=== PATIENT | female | born 1950 | race African-American/Black ===

== ENCOUNTER 2019-01-04 12:38 | Inpatient (IN) | payer MEDICARE ==
[~2019-01-04] VITALS: Ht 162.6 cm; Wt 93.0 kg
[2019-01-04] MEDS ORDERED: GLUCOPHAGE1000 MG ORAL (12:45)
[2019-01-04] MEDS ORDERED: GLIPIZIDE10 MG PO (12:45)
[2019-01-04] MEDS ORDERED: HYDROCHLOROTH12.5 M2 ORAL (12:45)
--- NOTE | 2019-01-04 13:06 | NUR ---
ED Nurse Note: pt brought in by [facility] c/o weakness and dizziness, per EMS report, pt has been noncompliant with meds, and has been under a lot of strees and hasn't been eating. HU=472 on field. pt AA&ox4, gcs=15, skin warm and dry, resp even and unlabored on RA, -n/v/d, will cont monitor.
--- NOTE | 2019-01-04 13:41 | Emergency Room Report ---
History of Present Illness General Chief Complaint: Generalized Weakness Source: Patient, EMS Present Illness HPI Patient presents with weakness. She also has elevated blood sugar. She is brought in by EMS. She stopped taking diabetic medications 1 month ago. No fevers, chills, chest pain, palpitations, nausea, vomiting, diarrhea, dysuria , abdominal pain, shortness of breath, depression, visual changes, headache. Allergies: Coded Allergies: No Known Allergies (Unverified , 01/04/19) Patient History Past Medical History: see triage record Social History: Denies: smoking Social History Narrative with daughter -apparently homeless Now: No : 0 Para: 0 Reviewed Nursing Documentation: PMH: Agreed; PSxH: Agreed Nursing Documentation-PMH Past Medical History: No History, Except For Hx Hypertension: Yes - HTN Hx Diabetes: Yes - DM Review of Systems All Other Systems: negative except mentioned in HPI Physical Exam Vital Signs Date Time Temp Pulse Resp B/P (MAP) Pulse Ox O2 Delivery O2 Flow Rate FiO2 01/04/19 12:34 98.2 98 18 131/79 96 Room Air Sp02 EP Interpretation: reviewed, normal General Appearance: well appearing, no apparent distress, GCS 15 Head: normocephalic Eyes: bilateral eye normal inspection, bilateral eye PERRL, bilateral eye EOMI ENT: moist mucus membranes Neck: supple Respiratory: lungs clear, normal breath sounds Cardiovascular #1: regular rate, rhythm Cardiovascular #2: 2+ radial (R) Gastrointestinal: normal inspection, normal bowel sounds, non tender, no mass, non-distended Musculoskeletal: back normal, normal range of motion Neurologic: alert, oriented x3, grossly normal Psychiatric: depressed affect Skin: normal inspection, warm/dry Medical Decision Making Diagnostic Impression: Primary Impression: NSTEMI (non-ST elevated myocardial infarction) Additional Impressions: Hyperglycemia Cardiomegaly Atelectasis Noncompliance ER Course Patient presents with weakness. Her blood sugars high. Differential includes acute myocardial infarction, diabetic ketoacidosis, occult infection, other electrolyte imbalance amongst others. Evaluation will be with EKG, chest x-ray and labs. She has a nonfocal neurologic exam and CT is not indicated this time. She'll receive IV hydration and repeat Accu-Cheks. The patient's is placed on a monitor worker. EKG sinus rhythm 96 left atrial enlargement nonspecific ST-T wave changes Lab called with + troponin. Aspirin and metoprolol ordered. After bolus, glucose 498. Insulin bolus. Seen by Dr. Vallecillo. Accu-Chek 392. Patient admitted to stepdown unit Dr. Wisdom. Laboratory Tests Test 01/04/19 14:20 White Blood Count 7.3 K/UL (4.8-10.8) Red Blood Count 5.51 M/UL (4.20-5.40) H Hemoglobin 13.2 G/DL (12.0-16.0) Hematocrit 44.0 % (37.0-47.0) Mean Corpuscular Volume 80 FL (80-99) Mean Corpuscular Hemoglobin 24.0 PG (27.0-31.0) L Mean Corpuscular Hemoglobin Concent 30.1 G/DL (32.0-36.0) L Red Cell Distribution Width 15.7 % (11.6-14.8) H Platelet Count 230 K/UL (150-450) Mean Platelet Volume 9.3 FL (6.5-10.1) Neutrophils (%) (Auto) % (45.0-75.0) Lymphocytes (%) (Auto) % (20.0-45.0) Monocytes (%) (Auto) % (1.0-10.0) Eosinophils (%) (Auto) % (0.0-3.0) Basophils (%) (Auto) % (0.0-2.0) Differential Total Cells Counted 100 Neutrophils % (Manual) 88 % (45-75) H Lymphocytes % (Manual) 7 % (20-45) L Monocytes % (Manual) 2 % (1-10) Eosinophils % (Manual) 0 % (0-3) Basophils % (Manual) 0 % (0-2) Band Neutrophils 3 % (0-8) Platelet Estimate Adequate Platelet Morphology Normal Red Blood Cell Morphology Normal Prothrombin Time 12.0 SEC (9.30-11.50) H Prothrombin Time INR 1.1 (0.9-1.1) PTT 26 SEC (23-33) Urine Color Pale yellow Urine Appearance Clear Urine pH 6.5 (4.5-8.0) Urine Specific [place] 1.010 (1.005-1.035) Urine Protein 3+ (NEGATIVE) H Urine Glucose (UA) 4+ (NEGATIVE) H Urine Ketones 2+ (NEGATIVE) H Urine Blood 2+ (NEGATIVE) H Urine Nitrite Negative (NEGATIVE) Urine Bilirubin Negative (NEGATIVE) Urine Urobilinogen 1 MG/DL (0.0-1.0) H Urine Leukocyte Esterase Negative (NEGATIVE) Urine RBC 2-4 /HPF (0 - 2) H Urine WBC 0-2 /HPF (0 - 2) Urine Squamous Epithelial Cells Occasional /LPF Urine Bacteria Few /HPF (NONE) Sodium Level 130 MMOL/L (136-145) L Potassium Level 4.4 MMOL/L (3.5-5.1) Chloride Level 93 MMOL/L (98-107) L Carbon Dioxide Level 24 MMOL/L (21-32) Anion Gap 13 mmol/L (5-15) Blood Urea Nitrogen 20 mg/dL (7-18) H Creatinine 1.7 MG/DL (0.55-1.30) H Estimate Glomerular Filtration Rate 30.1 mL/min (>60) Glucose Level 536 MG/DL (74-106) *H Calcium Level 9.5 MG/DL (8.5-10.1) Total Bilirubin 0.6 MG/DL (0.2-1.0) Aspartate Amino Transferase (AST) 38 U/L (15-37) H Alanine Aminotransferase (ALT) 29 U/L (12-78) Alkaline Phosphatase 140 U/L (46-116) H Total Creatine Kinase 335 U/L (26-308) H Troponin I 2.146 ng/mL (0.000-0.056) Pro-B-Type Natriuretic Peptide 6848 pg/mL (0-125) H Total Protein 8.9 G/DL (6.4-8.2) H Albumin 3.4 G/DL (3.4-5.0) Globulin 5.5 g/dL Albumin/Globulin Ratio 0.6 (1.0-2.7) L EKG Diagnostic Results Rate: normal Rhythm: NSR ST Segments: no acute changes Rhythm Strip Diag. Results EP Interpretation: yes Rhythm: NSR, no PVC's, no ectopy Chest X-Ray Diagnostic Results Chest X-Ray Diagnostic Results : Chest X-Ray Ordered: Yes # of Views/Limited/Complete: 1 View Indication: Other EP Interpretation: Yes Interpretation: no effusion, no pneumothorax, other - atelectasis and cardiomegally Impression: Other Electronically Signed by: Electronically signed by Hunter Osborne MD Last Vital Signs Date Time Temp Pulse Resp B/P (MAP) Pulse Ox O2 Delivery O2 Flow Rate FiO2 01/05/19 00:00 Nasal Cannula 2.0 01/05/19 00:00 97.4 78 20 112/80 (91) 97 Status: improved Disposition: ADMITTED INPATIENT Condition: Serious Hunter Osborne MD Jan 04, 2019 13:41
[2019-01-04 13:50] VITALS: BP 128/86
--- NOTE | 2019-01-04 14:30 | NUR ---
ED Nurse Note: ERMD verified before food. given.
[2019-01-04 14:36] LABS: APPEARANCE,URINE CLEAR; BILIRUBIN, URINE NEGATIVE (NEGATIVE); COLOR,URINE PALE YELLOW; GLUCOSE, URINE (UA) 4+ (NEGATIVE); HEMOGLOBIN 13.2 G/DL (12.0-16.0); KETONES,URINE 2+ (NEGATIVE); LEUKOCYTE ESTERASE ,URINE NEGATIVE (NEGATIVE); MEAN CORPUSCULAR VOLUME 80 FL (80-99); NITRITE,URINE NEGATIVE (NEGATIVE); PH,URINE 6.5 (4.5-8.0); PLATELET COUNT 230 K/UL (150-450); PROTEIN,URINE 3+ (NEGATIVE); RED BLOOD COUNT 5.51 M/UL (4.20-5.40); RED CELL DISTRIBUTION WIDTH 15.7 % (11.6-14.8); UROBILINOGEN,URINE 1 MG/DL (0.0-1.0); WHITE BLOOD COUNT 7.3 K/UL (4.8-10.8)
--- NOTE | 2019-01-04 14:44 | Diagnostic Imaging Report ---
Indication: Dyspnea Comparison: None A single view chest radiograph was obtained. Findings: The heart is enlarged. There is a mild the platelike atelectasis in the left midlung. Bones are osteopenic. IMPRESSION: Cardiomegaly.
[2019-01-04 14:48] LABS: INR 1.1 (0.9-1.1)
[2019-01-04 14:50] VITALS: BP 136/86
[2019-01-04 14:57] LABS: ALANINE AMINOTRANSFERASE 29 U/L (12-78); ALBUMIN 3.4 G/DL (3.4-5.0); ALBUMIN/GLOBULIN RATIO 0.6 (1.0-2.7); ALKALINE PHOSPHATASE 140 U/L (46-116); ANION GAP 13 mmol/L (5-15); ASPARTATE AMINO TRANSFERASE 38 U/L (15-37); BILIRUBIN,TOTAL 0.6 MG/DL (0.2-1.0); BLOOD UREA NITROGEN 20 mg/dL (7-18); CALCIUM 9.5 MG/DL (8.5-10.1); CARBON DIOXIDE 24 MMOL/L (21-32); CHLORIDE 93 MMOL/L (98-107); CREATINE KINASE 335 U/L (26-308); CREATININE 1.7 MG/DL (0.55-1.30); POTASSIUM 4.4 MMOL/L (3.5-5.1); SODIUM 130 MMOL/L (136-145)
[2019-01-04] MEDS ORDERED: Metoprolol 5mg/5ml Inj IVP STA (14:58)
--- NOTE | 2019-01-04 15:00 | NUR ---
ED Nurse Note: pt provided w/ extra blanket for comfort, pt vss, ambulatory w/steady gait, resp even and unlabored on RA, NSR on nuclear monitoring technician, will cont monitor.
[2019-01-04 15:50] VITALS: BP 132/80
[2019-01-04] MEDS ORDERED: Insulin Human Regular 100units/ml 3ml IV ONE (16:15)
--- NOTE | 2019-01-04 16:16 | Cardiac Electrophysiology PN ---
Subjective Subjective [id number] Objective Last 24 Hour Vital Signs Date Time Temp Pulse Resp B/P (MAP) Pulse Ox O2 Delivery O2 Flow Rate FiO2 01/04/19 16:14 100 138/86 01/04/19 13:50 98 18 Room Air 01/04/19 13:50 98.2 99 18 128/86 96 Room Air 01/04/19 12:34 98.2 98 18 131/79 96 Room Air Laboratory Tests Test 01/04/19 14:20 White Blood Count 7.3 K/UL (4.8-10.8) Red Blood Count 5.51 M/UL (4.20-5.40) H Hemoglobin 13.2 G/DL (12.0-16.0) Hematocrit 44.0 % (37.0-47.0) Mean Corpuscular Volume 80 FL (80-99) Mean Corpuscular Hemoglobin 24.0 PG (27.0-31.0) L Mean Corpuscular Hemoglobin Concent 30.1 G/DL (32.0-36.0) L Red Cell Distribution Width 15.7 % (11.6-14.8) H Platelet Count 230 K/UL (150-450) Mean Platelet Volume 9.3 FL (6.5-10.1) Neutrophils (%) (Auto) % (45.0-75.0) Lymphocytes (%) (Auto) % (20.0-45.0) Monocytes (%) (Auto) % (1.0-10.0) Eosinophils (%) (Auto) % (0.0-3.0) Basophils (%) (Auto) % (0.0-2.0) Differential Total Cells Counted 100 Neutrophils % (Manual) 88 % (45-75) H Lymphocytes % (Manual) 7 % (20-45) L Monocytes % (Manual) 2 % (1-10) Eosinophils % (Manual) 0 % (0-3) Basophils % (Manual) 0 % (0-2) Band Neutrophils 3 % (0-8) Platelet Estimate Adequate Platelet Morphology Normal Red Blood Cell Morphology Normal Prothrombin Time 12.0 SEC (9.30-11.50) H Prothromb Time International Ratio 1.1 (0.9-1.1) Activated Partial Thromboplast Time 26 SEC (23-33) Urine Color Pale yellow Urine Appearance Clear Urine pH 6.5 (4.5-8.0) Urine Specific [place] 1.010 (1.005-1.035) Urine Protein 3+ (NEGATIVE) H Urine Glucose (UA) 4+ (NEGATIVE) H Urine Ketones 2+ (NEGATIVE) H Urine Blood 2+ (NEGATIVE) H Urine Nitrite Negative (NEGATIVE) Urine Bilirubin Negative (NEGATIVE) Urine Urobilinogen 1 MG/DL (0.0-1.0) H Urine Leukocyte Esterase Negative (NEGATIVE) Urine RBC 2-4 /HPF (0 - 2) H Urine WBC 0-2 /HPF (0 - 2) Urine Squamous Epithelial Cells Occasional /LPF Urine Bacteria Few /HPF (NONE) Sodium Level 130 MMOL/L (136-145) L Potassium Level 4.4 MMOL/L (3.5-5.1) Chloride Level 93 MMOL/L (98-107) L Carbon Dioxide Level 24 MMOL/L (21-32) Anion Gap 13 mmol/L (5-15) Blood Urea Nitrogen 20 mg/dL (7-18) H Creatinine 1.7 MG/DL (0.55-1.30) H Estimat Glomerular Filtration Rate 30.1 mL/min (>60) Glucose Level 536 MG/DL (74-106) *H Calcium Level 9.5 MG/DL (8.5-10.1) Total Bilirubin 0.6 MG/DL (0.2-1.0) Aspartate Amino Transf (AST/SGOT) 38 U/L (15-37) H Alanine Aminotransferase (ALT/SGPT) 29 U/L (12-78) Alkaline Phosphatase 140 U/L (46-116) H Total Creatine Kinase 335 U/L (26-308) H Troponin I 2.146 ng/mL (0.000-0.056) Pro-B-Type Natriuretic Peptide 6848 pg/mL (0-125) H Total Protein 8.9 G/DL (6.4-8.2) H Albumin 3.4 G/DL (3.4-5.0) Globulin 5.5 g/dL Albumin/Globulin Ratio 0.6 (1.0-2.7) L Froilan Vallecillo MD Jan 04, 2019 16:16
--- NOTE | 2019-01-04 16:33 | NUR ---
ED Nurse Note: gave report to BUSHRA Leyva from [facility].
--- NOTE | 2019-01-04 16:35 | NUR ---
ED Nurse Note: pt transferred to SDU, all belongings sent with pt, pt vss, resp even and unlabored on RA, no pain at this time no neuro changes. nsr on secured entrance monitor.
--- NOTE | 2019-01-04 16:40 | NUR ---
NURSE NOTES: Received patient from ED via gurney. Placed comfortably in bed. electronic device monitor applied. Awake, alert, on room air. Able to make needs known. Denies pain at this time. Will admit to SDU standard level of care.
--- NOTE | 2019-01-04 17:05 | History and Physical ---
History of Present Illness General Date patient seen: Jan 04, 2019 Time patient seen: 16:45 Reason for Hospitalization: Generalized Weakness Present Illness HPI 68 year old woman with history of type 2 diagnosis since 2007, obesity, no known cardiovascular disease who presented to the ED because her legs were "wobbly" and she had difficulty climbing stairs. Denies any chest pain, dyspnea or palpitations. No reports intermittent compliance with her medications. Does not monitor her finger sticks. In ED she was foudn to have serum glucose > 500 without evidence of DKA and elevated troponin level of 2. Social History: Never smoker Family History: Mother with enlarged heart Allergies: Coded Allergies: No Known Allergies (Unverified , 01/04/19) Medication History Scheduled Hydrochlorothiazide* (Hydrochlorothiazide*), Unknown Dose ORAL DAILY, (Reported) Metformin Hcl (Glucophage), Unknown Dose ORAL DAILY, (Reported) Miscellaneous Medications Glipizide (Glipizide), Unknown Dose PO, (Reported) Patient History Healthcare decision maker N Resuscitation status Advanced Directive on File Review of Systems Constitutional: Denies: chills, sweats, fever Eye: Denies: eye pain, blurred vision ENT: Denies: ear pain, ear discharge Respiratory: Denies: cough, orthopnea, shortness of breath Cardiovascular: Denies: chest pain, edema, palpitations Gastrointestinal: Denies: abdominal pain, constipation Genitourinary: Denies: discharge, dysuria, frequency Musculoskeletal: Denies: back pain, joint pain Skin: Denies: rash, change in color Psychiatric: Denies: anxiety Neurological: Denies: headache, numbness Endocrine: Denies: excessive sweating, flushing Hematologic/Lymphatic: Denies: anemia, blood clots Physical Exam General Appearance: WD/WN, no apparent distress, alert HEENT: normocephalic, atraumatic Neck: non-tender, normal alignment, supple Respiratory/Chest: chest wall non-tender, lungs clear, normal breath sounds, no respiratory distress, no accessory muscle use Cardiovascular/Chest: normal peripheral pulses, normal rate, regular rhythm, regularly irregular, no gallop/murmur Abdomen: normal bowel sounds, non tender, no organomegaly Extremities: normal range of motion, non-tender, normal inspection Skin Exam: normal pigmentation, warm/dry 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, no motor/sensory deficits, alert, oriented x 3 Last 24 Hour Vital Signs Date Time Temp Pulse Resp B/P (MAP) Pulse Ox O2 Delivery O2 Flow Rate FiO2 01/04/19 16:14 100 138/86 01/04/19 15:50 98.2 100 18 132/80 96 Room Air 01/04/19 14:50 98.2 103 18 136/86 96 Room Air 01/04/19 13:50 98 18 Room Air 01/04/19 13:50 98.2 99 18 128/86 96 Room Air 01/04/19 12:34 98.2 98 18 131/79 96 Room Air Laboratory Tests Test 01/04/19 14:20 White Blood Count 7.3 K/UL (4.8-10.8) Red Blood Count 5.51 M/UL (4.20-5.40) H Hemoglobin 13.2 G/DL (12.0-16.0) Hematocrit 44.0 % (37.0-47.0) Mean Corpuscular Volume 80 FL (80-99) Mean Corpuscular Hemoglobin 24.0 PG (27.0-31.0) L Mean Corpuscular Hemoglobin Concent 30.1 G/DL (32.0-36.0) L Red Cell Distribution Width 15.7 % (11.6-14.8) H Platelet Count 230 K/UL (150-450) Mean Platelet Volume 9.3 FL (6.5-10.1) Neutrophils (%) (Auto) % (45.0-75.0) Lymphocytes (%) (Auto) % (20.0-45.0) Monocytes (%) (Auto) % (1.0-10.0) Eosinophils (%) (Auto) % (0.0-3.0) Basophils (%) (Auto) % (0.0-2.0) Differential Total Cells Counted 100 Neutrophils % (Manual) 88 % (45-75) H Lymphocytes % (Manual) 7 % (20-45) L Monocytes % (Manual) 2 % (1-10) Eosinophils % (Manual) 0 % (0-3) Basophils % (Manual) 0 % (0-2) Band Neutrophils 3 % (0-8) Platelet Estimate Adequate Platelet Morphology Normal Red Blood Cell Morphology Normal Prothrombin Time 12.0 SEC (9.30-11.50) H Prothromb Time International Ratio 1.1 (0.9-1.1) Activated Partial Thromboplast Time 26 SEC (23-33) Urine Color Pale yellow Urine Appearance Clear Urine pH 6.5 (4.5-8.0) Urine Specific [place] 1.010 (1.005-1.035) Urine Protein 3+ (NEGATIVE) H Urine Glucose (UA) 4+ (NEGATIVE) H Urine Ketones 2+ (NEGATIVE) H Urine Blood 2+ (NEGATIVE) H Urine Nitrite Negative (NEGATIVE) Urine Bilirubin Negative (NEGATIVE) Urine Urobilinogen 1 MG/DL (0.0-1.0) H Urine Leukocyte Esterase Negative (NEGATIVE) Urine RBC 2-4 /HPF (0 - 2) H Urine WBC 0-2 /HPF (0 - 2) Urine Squamous Epithelial Cells Occasional /LPF Urine Bacteria Few /HPF (NONE) Sodium Level 130 MMOL/L (136-145) L Potassium Level 4.4 MMOL/L (3.5-5.1) Chloride Level 93 MMOL/L (98-107) L Carbon Dioxide Level 24 MMOL/L (21-32) Anion Gap 13 mmol/L (5-15) Blood Urea Nitrogen 20 mg/dL (7-18) H Creatinine 1.7 MG/DL (0.55-1.30) H Estimat Glomerular Filtration Rate 30.1 mL/min (>60) Glucose Level 536 MG/DL (74-106) *H Calcium Level 9.5 MG/DL (8.5-10.1) Total Bilirubin 0.6 MG/DL (0.2-1.0) Aspartate Amino Transf (AST/SGOT) 38 U/L (15-37) H Alanine Aminotransferase (ALT/SGPT) 29 U/L (12-78) Alkaline Phosphatase 140 U/L (46-116) H Total Creatine Kinase 335 U/L (26-308) H Troponin I 2.146 ng/mL (0.000-0.056) Pro-B-Type Natriuretic Peptide 6848 pg/mL (0-125) H Total Protein 8.9 G/DL (6.4-8.2) H Albumin 3.4 G/DL (3.4-5.0) Globulin 5.5 g/dL Albumin/Globulin Ratio 0.6 (1.0-2.7) L Height (Feet): 5 Height (Inches): 4.00 Weight (Pounds): 190 Medications Current Medications Medications (Trade) Dose Ordered Sig/Nessa Route PRN Reason Start Time Stop Time Status Last Admin Dose Admin Aspirin (ASA) 81 mg DAILY ORAL 01/05/19 09:00 02/04/19 08:59 Atorvastatin Calcium (Lipitor) 80 mg BEDTIME ORAL 01/04/19 21:00 02/03/19 20:59 Enoxaparin Sodium (Lovenox) 80 mg DAILY SUBQ 01/04/19 17:00 02/03/19 16:59 Furosemide (Lasix) 40 mg DAILY IV 01/05/19 09:00 02/04/19 08:59 Metoprolol Tartrate (Lopressor) 25 mg EVERY 12 HOURS ORAL 01/04/19 21:00 02/03/19 20:59 Ondansetron HCl (Zofran) 4 mg Q6H PRN IVP Nausea & Vomiting 01/04/19 17:00 02/03/19 16:59 Assessment/Plan Assessment/Plan #Uncontrolled DM type 2 without evidence of DKA #Obesity #Medical noncompliance -admit to medical service -started IV fluids -start Levemir 8 units at bedtime -lispro sliding scale moderate intensity -needs education about importance of compliance #NSTEMI -place on color television console monitor -start ASA,Lipitor,metoprolol and Lovenox -check serial troponins, lipid panel -check TTE -cardiology consult appreciated #Pseudohyponatremia -likely due to severe hyperglycemia -monitor BMP VTE PPx Lovenox Full Code I spent 70 minutes on this patient's case, and 35 minutes was dedicated to counseling and/or care coordination. Fernando Bonner MD Jan 04, 2019 17:05
[2019-01-04] MEDS: Enoxaparin 80mg Inj SUBQ SCH (17:53)
--- NOTE | 2019-01-04 19:40 | NUR ---
HAND-OFF: Report given to Milena Vázquez RN.
--- NOTE | 2019-01-04 19:41 | NUR ---
NURSE NOTES: Bedside report received from BUSHRA Gupta. Patient is x4, able to follow commands, make needs known. assistant librarian showing NSR. Patient refusing dinner, feeling nauseous. [place] intact showing clear yellow urine. Skin is intact, clean, and dry. Accuchek is ACHS, last one 412. Will continue to monitor. IV sites LH 22, RAC 20c; asymptomatic. Labs OK per RNMD aware. Family is at bedside. Bed is locked in lowest position, side rails x3, bed alarm on, call garcía within reach. Will continue to monitor and follow plan of care.
[2019-01-04 20:00] VITALS: BP 110/65
[2019-01-04] MEDS: Atorvastatin 80mg tab ORAL SCH (20:13)
--- NOTE | 2019-01-04 20:15 | Consultation ---
DATE OF CONSULTATION: 01/04/2019 CARDIOLOGY CONSULTATION CONSULTING PHYSICIAN: Froilan Vallecillo M.D. REFERRING PHYSICIAN: Velasquez Wisdom M.D. REASON FOR CONSULTATION: Elevated troponin. HISTORY OF PRESENT ILLNESS: The patient is a 68-year-old lady who was brought to the emergency room complaining of generalized weakness. The patient was found to have a blood sugar of around 400. The patient states that she has been homeless and she has been taking her medication for one month. Her labs show troponin of more than 2. A Cardiology consultation was obtained for further evaluation and management. REVIEW OF SYSTEMS: Review of systems was performed and was negative other than what was mentioned in history of present illness. PAST MEDICAL HISTORY: 1. Hypertension. 2. Diabetes. SOCIAL HISTORY: She is homeless. She does not smoke or drink alcohol. PHYSICAL EXAMINATION: VITAL SIGNS: Blood pressure is 131/79, pulse 98, respirations 18, and temperature 98.2. HEAD AND NECK: Shows no JVD. LUNGS: Clear. CARDIOVASCULAR: Regular S1 and S2 with no gallop or murmur. ABDOMEN: Soft. EXTREMITIES: No pitting. LABORATORY DATA: White count 7.2, hemoglobin of 13.2, and hematocrit of 44, and platelet count is 230. PT is 1.1. Her UA is negative. Sodium is 130, potassium 4.4, BUN of 20, and creatinine 1.7. Troponin is 2.146. BNP 6848. ASSESSMENT AND PLAN: 1. Non-ST elevation myocardial infarction and troponin of 2.1. The patient has renal failure. Creatinine is only 1.7. The patient however does not have any chest pain and BNP is more than 6800. The patient received aspirin and beta-misha in the emergency room. We will check a fasting lipid profile to completely rule out ID protocol and get an echocardiogram for ejection fraction and wall motion abnormality. 2. Uncontrolled diabetes. Glucose 436. 3. Hyponatremia. Sodium 130. 4. Renal failure. Creatinine 1.7. 5. Hypertension. The patient started on beta-misha in view of her elevated troponin. I will add p.r.n. clonidine to her medical regimen. Thank you very much for allowing me to participate in the care of this patient. Please do not hesitate to contact me for any questions regarding my evaluation. Sincerely, Froilan Vallecillo M.D. DR: Lakisha JOB#: [id number] CC:
[2019-01-04] MEDS: NovoLOG Insulin Flexpen SUBQ SCH (20:17)
[2019-01-04] MEDS: Metoprolol 25mg tab ORAL SCH (20:18)
[2019-01-04] MEDS: Levemir Flexpen SUBQ SCH (20:18)
[2019-01-05] VITALS (7 sets, daily range): BP systolic 98–141; BP diastolic 62–99
[2019-01-05] MEDS: NovoLOG Insulin Flexpen SUBQ SCH ×4 (05:31→20:16)
[2019-01-05 05:39] LABS: BASOPHILS % (AUTO) 1.1 % (0.0-2.0); EOSINOPHILS % (AUTO) 0.8 % (0.0-3.0); HEMATOCRIT 39.7 % (37.0-47.0); HEMOGLOBIN 12.1 G/DL (12.0-16.0); LYMPHOCYTES % (AUTO) 12.3 % (20.0-45.0); MEAN CORPUSCULAR VOLUME 78 FL (80-99); MONOCYTES % (AUTO) 4.8 % (1.0-10.0); NEUTROPHILS % (AUTO) 80.9 % (45.0-75.0); PLATELET COUNT 236 K/UL (150-450); RED BLOOD COUNT 5.08 M/UL (4.20-5.40); RED CELL DISTRIBUTION WIDTH 15.6 % (11.6-14.8); WHITE BLOOD COUNT 8.1 K/UL (4.8-10.8)
[2019-01-05 06:29] LABS: ANION GAP 12 mmol/L (5-15); BLOOD UREA NITROGEN 26 mg/dL (7-18); CALCIUM 8.9 MG/DL (8.5-10.1); CARBON DIOXIDE 25 MMOL/L (21-32); CHLORIDE 101 MMOL/L (98-107); CREATININE 2.2 MG/DL (0.55-1.30); POTASSIUM 5.1 MMOL/L (3.5-5.1); SODIUM 138 MMOL/L (136-145)
--- NOTE | 2019-01-05 07:05 | NUR ---
NURSE NOTES: Paged Dr. Gabriel regarding elevated Troponin. Awaiting orders. Will continue to monitor.
--- NOTE | 2019-01-05 07:10 | NUR ---
HAND-OFF: Report given to BUSHRA Gupta.
--- NOTE | 2019-01-05 07:11 | NUR ---
NURSE NOTES: Received patient sleeping in bed. Easy to arouse. Verbal able to make needs known. No signs or symptoms of hypoglycemia or hyperglycemia at this time. Will continue plan of care.
[2019-01-05 07:37] LABS: CHOLESTEROL 285 MG/DL (< 200); HDL CHOLESTEROL 50 MG/DL (40-60); TRIGLYCERIDES 201 MG/DL (30-150)
[2019-01-05] MEDS: Aspirin Baby 81mg ORAL SCH (09:09)
[2019-01-05] MEDS: Metoprolol 25mg tab ORAL SCH ×2 (09:09→20:09)
[2019-01-05] MEDS: Enoxaparin 80mg Inj SUBQ SCH (09:10)
[2019-01-05] MEDS ORDERED: GI Cocktail 50ml ORAL PRN (10:15)
--- NOTE | 2019-01-05 12:00 | NUR ---
NURSE NOTES: Bladder scan done after patient voided. With 18ml noted in the scanner. Will inform Dr. Smallwood.
--- NOTE | 2019-01-05 14:17 | Consultation ---
Consult Note Assessment/Plan DICT # [id number] Velasquez Wisdom MD Jan 05, 2019 14:17
--- NOTE | 2019-01-05 15:22 | NUR ---
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 BS 503 SI: HYPERGLYCEMIA NSTEMI T. 98.2 HR 98 RR 18 B/P 131/79 BUN 20 CR 1.7 GLU 536 CK 335 TROP 2.146 BNP 6848 ALK PHOS 140 NA 130 UA+ PROTEIN,KETONES,GLUCOSE,RBC,SQUAMOUS EPITH CELL, CXR= CARDIOMEGALY IS: IV BOLUS NS X 1.5 LITERS ASA PO LOPRESSOR IV ADMITTED TO STEP DOWN STEP DOWN STATUS DCP RETURN HOME
--- NOTE | 2019-01-05 15:32 | Cardiology Report ---
APPROVED REPORT EKG Measurement Heart [id number] Normal sinus rhythm Possible Left atrial enlargement Possible Anterior infarct, age undetermined Abnormal ECG
--- NOTE | 2019-01-05 16:16 | General Progress Note ---
Assessment/Plan Assessment/Plan #Uncontrolled DM type 2 without evidence of DKA #Obesity #Medical noncompliance -improved glycemic control -continue Levemir -lispro sliding scale -needs education about importance of compliance #NSTEMI -place on cardiac rehabilitation program director -cont ASA,Lipitor,metoprolol and Lovenox -TTE pending -cardiology following #Pseudohyponatremia -likely due to severe hyperglycemia -resolved VTE PPx Lovenox Full Code I spent 45 minutes on this patient's case, and 23 minutes was dedicated to counseling and/or care coordination. Subjective Date patient seen: Jan 05, 2019 Time patient seen: 13:00 ROS Limited/Unobtainable: No Constitutional: Denies: fever Cardiovascular: Reports: chest pain; Denies: edema Respiratory: Denies: cough Gastrointestinal/Abdominal: Denies: abdominal pain Allergies: Coded Allergies: No Known Allergies (Unverified , 01/04/19) Subjective Medicine followup for uncontrolled DM and possible NSTEMI Still with some chest pain Objective Last 24 Hour Vital Signs Date Time Temp Pulse Resp B/P (MAP) Pulse Ox O2 Delivery O2 Flow Rate FiO2 01/05/19 16:00 Nasal Cannula 2.0 01/05/19 12:05 75 01/05/19 12:00 Nasal Cannula 2.0 01/05/19 12:00 98.6 79 20 102/64 (77) 97 01/05/19 09:09 94 141/86 01/05/19 08:00 Nasal Cannula 2.0 01/05/19 08:00 98.1 94 16 141/86 (104) 95 01/05/19 07:43 86 01/05/19 04:00 98.0 79 20 109/68 (82) 94 01/05/19 04:00 Nasal Cannula 2.0 01/05/19 04:00 72 01/05/19 00:00 Nasal Cannula 2.0 01/05/19 00:00 97.4 78 20 112/80 (91) 97 01/05/19 00:00 76 01/04/19 20:18 88 101/65 01/04/19 20:00 Nasal Cannula 2.0 01/04/19 20:00 97.5 75 20 110/65 (80) 100 01/04/19 20:00 72 01/04/19 17:54 Room Air 01/04/19 17:22 71 01/04/19 17:14 98.4 98 16 136/89 100 Room Air 01/04/19 16:14 100 138/86 Intake and Output 01/04/19 01/05/19 19:00 07:00 Intake Total 240 ml Balance 240 ml Intake Oral 240 ml # Voids 1 2 Laboratory Tests 01/04/19 19:15: Troponin I 1.992H 01/05/19 03:05: Troponin I 2.784H, White Blood Count 8.1, Red Blood Count 5.08, Hemoglobin 12.1 , Hematocrit 39.7, Mean Corpuscular Volume 78L, Mean Corpuscular Hemoglobin 23.8L, Mean Corpuscular Hemoglobin Concent 30.4L, Red Cell Distribution Width 15.6H, Platelet Count 236, Mean Platelet Volume 9.2, Neutrophils (%) (Auto) 80.9H, Lymphocytes (%) (Auto) 12.3L, Monocytes (%) (Auto) 4.8, Eosinophils (%) ( Auto) 0.8, Basophils (%) (Auto) 1.1, Sodium Level 138, Potassium Level 5.1, Chloride Level 101, Carbon Dioxide Level 25, Anion Gap 12, Blood Urea Nitrogen 26H, Creatinine 2.2H, Estimat Glomerular Filtration Rate 27.0, Glucose Level 171 #H, Calcium Level 8.9, Pro-B-Type Natriuretic Peptide 65036G, Triglycerides Level 201H, Cholesterol Level 285H, LDL Cholesterol 127H, HDL Cholesterol 50, Cholesterol/HDL Ratio 5.7H Height (Feet): 5 Height (Inches): 4.00 Weight (Pounds): 190 General Appearance: no apparent distress, alert Neck: non-tender, normal alignment Cardiovascular: normal peripheral pulses, normal rate, regular rhythm Respiratory/Chest: lungs clear, normal breath sounds, no respiratory distress Abdomen: normal bowel sounds, non tender, soft Fernando Bonner MD Jan 05, 2019 16:15
--- NOTE | 2019-01-05 16:30 | NUR ---
NURSE NOTES: Dr. Vallecillo at bedside. Informed regarding troponin levels and in and out complaints of chest pain. ECG done when patient reports chest pain, showed result to Dr. Vallecillo. MD said that he will put orders.
--- NOTE | 2019-01-05 16:31 | Cardiac Electrophysiology PN ---
Assessment/Plan Assessment/Plan 1. Non-ST elevation myocardial infarction and troponin of 2.1. The patient has renal failure. Creatinine is only 1.7. The patient however does not have any chest pain and BNP is more than 6800. ECG lateral T wave inversion. 2. CHF with EF 35%. On Lopressor and Lasix. Add Hydralzine and isordil 3. HTN On CHF meds 4. Renal failure. Creatinine 2.2. 5. Uncontrolled diabetes. Glucose 436. 6. Hyponatremia. Sodium 130. Subjective Subjective Was having off and on CP but not now. RN at bedside. Echo EF 35% Objective Last 24 Hour Vital Signs Date Time Temp Pulse Resp B/P (MAP) Pulse Ox O2 Delivery O2 Flow Rate FiO2 01/05/19 16:00 Nasal Cannula 2.0 01/05/19 12:05 75 01/05/19 12:00 Nasal Cannula 2.0 01/05/19 12:00 98.6 79 20 102/64 (77) 97 01/05/19 09:09 94 141/86 01/05/19 08:00 Nasal Cannula 2.0 01/05/19 08:00 98.1 94 16 141/86 (104) 95 01/05/19 07:43 86 01/05/19 04:00 98.0 79 20 109/68 (82) 94 01/05/19 04:00 Nasal Cannula 2.0 01/05/19 04:00 72 01/05/19 00:00 Nasal Cannula 2.0 01/05/19 00:00 97.4 78 20 112/80 (91) 97 01/05/19 00:00 76 01/04/19 20:18 88 101/65 01/04/19 20:00 Nasal Cannula 2.0 01/04/19 20:00 97.5 75 20 110/65 (80) 100 01/04/19 20:00 72 01/04/19 17:54 Room Air 01/04/19 17:22 71 01/04/19 17:14 98.4 98 16 136/89 100 Room Air Intake and Output 01/04/19 01/05/19 19:00 07:00 Intake Total 240 ml Balance 240 ml Intake Oral 240 ml # Voids 1 2 Laboratory Tests Test 01/04/19 19:15 01/05/19 03:05 Troponin I 1.992 ng/mL (0.000-0.056) 2.784 ng/mL (0.000-0.056) White Blood Count 8.1 K/UL (4.8-10.8) Red Blood Count 5.08 M/UL (4.20-5.40) Hemoglobin 12.1 G/DL (12.0-16.0) Hematocrit 39.7 % (37.0-47.0) Mean Corpuscular Volume 78 FL (80-99) L Mean Corpuscular Hemoglobin 23.8 PG (27.0-31.0) L Mean Corpuscular Hemoglobin Concent 30.4 G/DL (32.0-36.0) L Red Cell Distribution Width 15.6 % (11.6-14.8) H Platelet Count 236 K/UL (150-450) Mean Platelet Volume 9.2 FL (6.5-10.1) Neutrophils (%) (Auto) 80.9 % (45.0-75.0) H Lymphocytes (%) (Auto) 12.3 % (20.0-45.0) L Monocytes (%) (Auto) 4.8 % (1.0-10.0) Eosinophils (%) (Auto) 0.8 % (0.0-3.0) Basophils (%) (Auto) 1.1 % (0.0-2.0) Sodium Level 138 MMOL/L (136-145) Potassium Level 5.1 MMOL/L (3.5-5.1) Chloride Level 101 MMOL/L (98-107) Carbon Dioxide Level 25 MMOL/L (21-32) Anion Gap 12 mmol/L (5-15) Blood Urea Nitrogen 26 mg/dL (7-18) H Creatinine 2.2 MG/DL (0.55-1.30) H Estimat Glomerular Filtration Rate 27.0 mL/min (>60) Glucose Level 171 MG/DL (74-106) #H Calcium Level 8.9 MG/DL (8.5-10.1) Pro-B-Type Natriuretic Peptide 58715 pg/mL (0-125) H Triglycerides Level 201 MG/DL (30-150) H Cholesterol Level 285 MG/DL (< 200) H LDL Cholesterol 127 mg/dL (<100) H HDL Cholesterol 50 MG/DL (40-60) Cholesterol/HDL Ratio 5.7 (3.3-4.4) H Objective HEAD AND NECK: No JVD. LUNGS: Clear. CARDIOVASCULAR: Regular S1 and S2 with no gallop or murmur. ABDOMEN: Soft. EXTREMITIES: No pitting. Froilan Vallecillo MD Jan 05, 2019 16:31
--- NOTE | 2019-01-05 17:30 | Consultation ---
DATE OF CONSULTATION: 01/05/2019 PULMONARY CONSULTATION CONSULTING PHYSICIAN: Velasquez Wisdom M.D. REASON FOR CONSULTATION: Hypoxemia. HISTORY OF PRESENT ILLNESS: The patient is a 68-year-old female, lifelong nonsmoker with a history of type 2 diabetes, obesity, snoring, possible GHANSHYAM with medication noncompliance, who presented to the ER with generalized weakness, noted to have hyperglycemia, pulmonary vascular congestion, presumed acute kidney injury, and non ST elevation NE. The patient has been seen by a Cardiology and primary team and is currently on Lovenox for non-STEMI. Echo was done and pending. The patient notes some mild nonproductive cough and denies any significant shortness of breath, dyspnea, PND, orthopnea, hemoptysis, wheezing, or other complaints. PAST MEDICAL HISTORY: 1. Diabetes. 2. Obesity. PAST SURGICAL HISTORY: None. ALLERGIES: No known drug allergies. MEDICATIONS: Prior to admission medications, the patient was supposed to be on hydrochlorothiazide and Glucophage, but it is not entirely clear that she was compliant. SOCIAL HISTORY: Denies tobacco, alcohol or drug use. FAMILY HISTORY: Noncontributory. REVIEW OF SYSTEMS: Negative in history of present illness. PHYSICAL EXAMINATION: VITAL SIGNS: Temperature 98.6, pulse 79, blood pressure 102/64, respiratory rate 20, and saturating 97% on two liters. GENERAL: The patient is well-developed and well-nourished female, in no acute distress. Awake, alert, and oriented x3. HEENT: Normocephalic and atraumatic. Oropharynx with moist membranes. NECK: Supple. No lymphadenopathy or jugular venous distention. CHEST: Clear to auscultation bilaterally. No wheezing, rales, rhonchi. HEART: Regular rate and rhythm. ABDOMEN: Soft, nontender, nondistended. EXTREMITIES: Without cyanosis, clubbing or edema. ANCILLARY DATA: White count 8.1, hemoglobin 12.1, and platelet count 236. INR 1.1. Sodium 138, potassium 5.0, chloride 101, bicarbonate 25, BUN 26, creatinine 2.2, glucose 171. Troponin 2.146, 1.992, 2.748. BNP 59685. HDL 50, LDL 127, total cholesterol 285, triglyceride 2.1. Chest x-ray, pulmonary vascular congestion. ASSESSMENT: The patient is a 68-year-old female with history of obesity, possible GHANSHYAM, type 2 diabetes, noncompliant with medical care, presenting with generalized malaise and a [id number] NE with evidence of acute kidney injury. The patient is mildly hypoxemic, likely secondary to a component of decompensated heart failure. I will apply a duplex and D-dimer to rule out venous thromboembolism. PROBLEM LIST: 1. Non ST-elevation NE. 2. Mild hypoxemia. 3. Hyperglycemia. 4. Type 2 diabetes, noncompliant with medical treatment. 5. ANGIE versus CKD. 6. Hypertension. 7. Obesity. 8. Snoring. TREATMENT PLAN: 1. Optimize pulmonary hygiene/mobilize as tolerated. 2. Titrate down FiO2 to keep saturations greater 90%. 3. Check an ABG. 4. Duplex and D-dimer. 5. Follow up echocardiogram. 6. Monitor volumes and renal function. 7. Consider renal consultation. 8. Follow Cardiology recommendations, medical management of non-STEMI, will need ischemia evaluation at some point. 9. We would discontinue Lovenox and switch to heparin given abnormal renal function. 10. The patient should have outpatient sleep study. 11. DVT prophylaxis. The patient is on low-molecular weight heparin, which we are going to probably change to IV unfractionated heparin. . , thank you for allowing me to assist in the care of your patient. If I may be any assistance, please do not hesitate to ask. Velasquez Wisdom M.D. DR: Armaan JOB#: [id number] CC:
--- NOTE | 2019-01-05 19:10 | NUR ---
NURSE NOTES: Bedside report received from BUSHRA Gupta. Patient is x4, able to follow commands, make needs known. front desk receptionist showing NSR. Patient refused dinner, will hold PM insulin. Skin is intact, clean, and dry. Accuchek is ACHS, last one 180. Will continue to monitor. IV sites LH 22, RAC 20c; asymptomatic. Labs OK per RNMD aware. Family is at bedside. Bed is locked in lowest position, side rails x3, bed alarm on, call garcía within reach. Will continue to monitor and follow plan of care.
--- NOTE | 2019-01-05 19:40 | Consultation ---
Consult Note Consult Note asked to evaluate for rising serum Cr The patient is a 68-year-old female, nonsmoker with a history of type 2 diabetes, obesity, snoring, possible GHANSHYAM with medication noncompliance, who presented to the ER with generalized weakness, noted to have hyperglycemia, pulmonary vascular congestion, presumed acute kidney injury, and non ST elevation [place]. The patient notes some mild nonproductive cough and denies any significant shortness of breath, dyspnea, PND, orthopnea, hemoptysis, wheezing, or other complaints. PAST MEDICAL HISTORY: 1. Diabetes. 2. Obesity. interviewed examined data reviewed Assessment/Plan Acute on Chronic Renal failure- NSTEMI (non-ST elevated myocardial infarction) Hyperglycemia , DM Cardiomegaly Atelectasis Noncompliance Optimize cardiac and pulmonary status avoid nephrotoxics keep BP and BS in check monitor renal parameters urine studies per orders Donald Smallwood MD Jan 05, 2019 19:40
[2019-01-05] MEDS: Atorvastatin 80mg tab ORAL SCH (20:09)
[2019-01-05] MEDS: Levemir Flexpen SUBQ SCH (20:11)
[2019-01-05] MEDS: HydrALAZINE 10mg Tab ORAL SCH (22:00)
--- NOTE | 2019-01-06 01:38 | NUR ---
NURSE NOTES: Pt had episode of vomiting. Daughter at bedside. Pt stated that she thinks she has been poisoned. She mentioned that her sister was a property caretaker of someone for 30 years who had and the family thinks that her sister poisoned them. She was insistent on being tested for poison by the lab. I tried explaining to her symptoms are consistent with her diagnosis and that I will let the AM nurse know that she would like to speak with the MD in the AM. Gave Litzy for n/v episode, see eMAR.
[2019-01-06 03:52] VITALS: BP 120/70
[2019-01-06] MEDS: NovoLOG Insulin Flexpen SUBQ SCH ×4 (05:37→20:12)
[2019-01-06] MEDS: HydrALAZINE 10mg Tab ORAL SCH ×3 (05:38→22:00)
[2019-01-06 06:19] LABS: BASOPHILS % (AUTO) 0.6 % (0.0-2.0); EOSINOPHILS % (AUTO) 0.5 % (0.0-3.0); HEMATOCRIT 37.8 % (37.0-47.0); HEMOGLOBIN 11.9 G/DL (12.0-16.0); LYMPHOCYTES % (AUTO) 13.6 % (20.0-45.0); MEAN CORPUSCULAR VOLUME 78 FL (80-99); MONOCYTES % (AUTO) 6.8 % (1.0-10.0); NEUTROPHILS % (AUTO) 78.5 % (45.0-75.0); PLATELET COUNT 184 K/UL (150-450); RED BLOOD COUNT 4.85 M/UL (4.20-5.40); RED CELL DISTRIBUTION WIDTH 15.7 % (11.6-14.8); WHITE BLOOD COUNT 5.7 K/UL (4.8-10.8)
[2019-01-06 07:20] LABS: CREATINE KINASE 151 U/L (26-308); GAMMA GLUTAMYL TRANSPEPTIDASE 234 U/L (5-85); PHOSPHORUS 5.1 MG/DL (2.5-4.9)
--- NOTE | 2019-01-06 07:21 | NUR ---
HAND-OFF: Report given to BUSHRA Crump.
--- NOTE | 2019-01-06 07:22 | NUR ---
NURSE NOTES: Received patient from BUSHRA Abbott. Patient in bed and asleep. On NC. purchasing analyst in placed. IV sites are asymptomatic. Daughter at bedside. Bed in lowest position with side rails up. Will continue to follow plan of care.
[2019-01-06 07:53] LABS: ALANINE AMINOTRANSFERASE 91 U/L (12-78); ALBUMIN 2.6 G/DL (3.4-5.0); ALBUMIN/GLOBULIN RATIO 0.6 (1.0-2.7); ALKALINE PHOSPHATASE 183 U/L (46-116); ANION GAP 18 mmol/L (5-15); ASPARTATE AMINO TRANSFERASE 147 U/L (15-37); BILIRUBIN,TOTAL 0.6 MG/DL (0.2-1.0); BLOOD UREA NITROGEN 37 mg/dL (7-18); CALCIUM 8.8 MG/DL (8.5-10.1); CARBON DIOXIDE 19 MMOL/L (21-32); CHLORIDE 99 MMOL/L (98-107); CREATININE 3.7 MG/DL (0.55-1.30); POTASSIUM 5.1 MMOL/L (3.5-5.1); SODIUM 136 MMOL/L (136-145)
[2019-01-06 08:00] VITALS: BP 105/69
[2019-01-06] MEDS: Imdur 30mg tab ORAL SCH (09:00)
[2019-01-06] MEDS: Metoprolol 25mg tab ORAL SCH ×2 (09:00→20:10)
[2019-01-06] MEDS: Enoxaparin 80mg Inj SUBQ SCH (09:05)
[2019-01-06] MEDS: Aspirin Baby 81mg ORAL SCH (09:05)
[2019-01-06 12:00] VITALS: BP 96/57
--- NOTE | 2019-01-06 12:00 | NUR ---
NURSE NOTES: Mercantile Agent made aware about patient's concern about sister and family.
--- NOTE | 2019-01-06 13:15 | Nephrology Progress Note ---
Assessment/Plan Problem List: (1) ANGIE (acute kidney injury) (2) NSTEMI (non-ST elevated myocardial infarction) (3) Hyperglycemia Assessment Acute on Chronic Renal failure- Cr higher NSTEMI (non-ST elevated myocardial infarction), troponin higher Hyperglycemia , DM Cardiomegaly Atelectasis Noncompliance Plan johnson- DC lasix- fluid challenge- SUSANNA kidney Optimize cardiac and pulmonary status avoid nephrotoxics keep BP and BS in check monitor renal parameters urine studies per orders Subjective ROS Limited/Unobtainable: No Constitutional: Reports: malaise, weakness Objective Objective Last 24 Hour Vital Signs Date Time Temp Pulse Resp B/P (MAP) Pulse Ox O2 Delivery O2 Flow Rate FiO2 01/06/19 12:00 98.5 74 20 96/57 (70) 97 01/06/19 12:00 Nasal Cannula 2.0 01/06/19 09:00 105/69 01/06/19 09:00 75 105/69 01/06/19 08:00 97.6 75 19 105/69 (81) 97 01/06/19 08:00 Nasal Cannula 2.0 01/06/19 07:39 77 01/06/19 05:38 120/70 01/06/19 04:00 77 01/06/19 04:00 Nasal Cannula 2.0 01/06/19 03:52 97.7 78 18 120/70 (87) 95 01/06/19 00:00 68 01/06/19 00:00 Nasal Cannula 2.0 01/05/19 23:03 98.6 80 22 130/99 (109) 93 01/05/19 22:00 98/62 01/05/19 20:09 71 98/62 01/05/19 20:00 Nasal Cannula 2.0 01/05/19 20:00 70 01/05/19 19:31 97.9 71 20 98/62 (74) 100 01/05/19 16:00 97.5 70 22 125/78 (94) 100 01/05/19 16:00 Nasal Cannula 2.0 01/05/19 15:50 66 Intake and Output 01/05/19 01/06/19 19:00 07:00 Intake Total 360 ml 480 ml Balance 360 ml 480 ml Intake Oral 360 ml 480 ml # Voids 2 2 # Bowel Movements 2 Laboratory Tests 01/05/19 16:50: D-Dimer 8.10H, Troponin I 2.250H, C-Reactive Protein, Quantitative 7.1H 01/06/19 04:00: Troponin I 1.717H, C-Reactive Protein, Quantitative [Pending], White Blood Count 5.7, Red Blood Count 4.85, Hemoglobin 11.9L, Hematocrit 37.8, Mean Corpuscular Volume 78L, Mean Corpuscular Hemoglobin 24.5L, Mean Corpuscular Hemoglobin Concent 31.4L, Red Cell Distribution Width 15.7H, Platelet Count 184 , Mean Platelet Volume 8.4, Neutrophils (%) (Auto) 78.5H, Lymphocytes (%) (Auto ) 13.6L, Monocytes (%) (Auto) 6.8, Eosinophils (%) (Auto) 0.5, Basophils (%) ( Auto) 0.6, Sodium Level 136, Potassium Level 5.1, Chloride Level 99, Carbon Dioxide Level 19L, Anion Gap 18H, Blood Urea Nitrogen 37H, Creatinine 3.7#H, Estimat Glomerular Filtration Rate 14.8, Glucose Level 251H, Hemoglobin A1c 13.7H, Uric Acid 10.9H, Calcium Level 8.8, Phosphorus Level 5.1H, Magnesium Level 1.9, Total Bilirubin 0.6, Gamma Glutamyl Transpeptidase 234H, Aspartate Amino Transf (AST/SGOT) 147H, Alanine Aminotransferase (ALT/SGPT) 91H, Alkaline Phosphatase 183H, Total Creatine Kinase 151, Pro-B-Type Natriuretic Peptide 23272F, Total Protein 6.9, Albumin 2.6L, Globulin 4.3, Albumin/Globulin Ratio 0.6L, Vitamin B12 Level 1187H, Folate 21.1, Thyroid Stimulating Hormone (TSH) 0.807 Height (Feet): 5 Height (Inches): 4.00 Weight (Pounds): 205 General Appearance: no apparent distress, lethargic Cardiovascular: normal rate Respiratory/Chest: decreased breath sounds Abdomen: distended Donald Smallwood MD Jan 06, 2019 13:15
--- NOTE | 2019-01-06 13:28 | NUR ---
Social Service Note SYED met with patient's dgt Marry King [phone] who informed SW that patient was leaving in her car prior to admission with her sister. Dgt states patient came to [place] from [place] with her sister to stay with patient's mother. Dgt is not sure exactly what happened but patient was kicked out of mother's home. Patient has been living in her car with sister for about a week. Patient's sister is currently at a family members home. Dgt states patient currently appears agitated and delusional. Patient stating her sister is poisoning her and doesn't want her to visit. Sister has visited daily prior to this statement. Dgt is unaware of prior history of mental health disorder. Dgt states patient has had multiple falls and is unable to care for self. Dgt is inquiring about SNF placement. SW discussed SNF criteria for SNF placement. Recommend PT eval. Patient with Medicare part A only. SW discussed with dgt assisting patient in going to social security to determine benefits and income. Referral to [facility] to assist with [facility] application. SW also encouraged dgt to discuss with family members placement options for patient if she didn't qualify or have coverage for SNF placement. Homeless placement briefly discussed.
--- NOTE | 2019-01-06 13:57 | NUR ---
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 97.6 HR 75 RR 19 B/P 103/69 2L NC O2 SAT @ 98% BUN 37 CR 3.7 AST 147 ALT 91 ALK PHOS 183 TROP 1.717 D-DIMER 8.10 IS: ASA PO PROTONIX PO LOVENOX SUBC STEP DOWN UNIT
--- NOTE | 2019-01-06 15:39 | General Progress Note ---
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 Subjective Date patient seen: Jan 06, 2019 Time patient seen: 14:00 ROS Limited/Unobtainable: No Constitutional: Denies: chills, diaphoresis Cardiovascular: Denies: chest pain, edema Respiratory: Denies: cough, orthopnea, shortness of breath Gastrointestinal/Abdominal: Denies: abdomen distended, abdominal pain Genitourinary: Denies: burning, discharge Neurologic/Psychiatric: Denies: anxiety, depressed Endocrine: Denies: excessive sweating Hematologic/Lymphatic: Denies: anemia Allergies: Coded Allergies: No Known Allergies (Unverified , 01/04/19) Subjective Medicine followup for uncontrolled DM and possible NSTEMI + ANGIE No new complaints, reports that her sister is trying to poison her Objective Last 24 Hour Vital Signs Date Time Temp Pulse Resp B/P (MAP) Pulse Ox O2 Delivery O2 Flow Rate FiO2 01/06/19 14:00 96/57 01/06/19 12:00 98.5 74 20 96/57 (70) 97 01/06/19 12:00 Nasal Cannula 2.0 01/06/19 11:57 74 01/06/19 09:00 105/69 01/06/19 09:00 75 105/69 01/06/19 08:00 97.6 75 19 105/69 (81) 97 01/06/19 08:00 Nasal Cannula 2.0 01/06/19 07:39 77 01/06/19 05:38 120/70 01/06/19 04:00 77 01/06/19 04:00 Nasal Cannula 2.0 01/06/19 03:52 97.7 78 18 120/70 (87) 95 01/06/19 00:00 68 01/06/19 00:00 Nasal Cannula 2.0 01/05/19 23:03 98.6 80 22 130/99 (109) 93 01/05/19 22:00 98/62 01/05/19 20:09 71 98/62 01/05/19 20:00 Nasal Cannula 2.0 01/05/19 20:00 70 01/05/19 19:31 97.9 71 20 98/62 (74) 100 01/05/19 16:00 97.5 70 22 125/78 (94) 100 01/05/19 16:00 Nasal Cannula 2.0 01/05/19 15:50 66 Intake and Output 01/05/19 01/06/19 19:00 07:00 Intake Total 360 ml 480 ml Balance 360 ml 480 ml Intake Oral 360 ml 480 ml # Voids 2 2 # Bowel Movements 2 Laboratory Tests 01/05/19 16:50: D-Dimer 8.10H, Troponin I 2.250H, C-Reactive Protein, Quantitative 7.1H 01/06/19 04:00: Troponin I 1.717H, C-Reactive Protein, Quantitative 9.2H, White Blood Count 5.7 , Red Blood Count 4.85, Hemoglobin 11.9L, Hematocrit 37.8, Mean Corpuscular Volume 78L, Mean Corpuscular Hemoglobin 24.5L, Mean Corpuscular Hemoglobin Concent 31.4L, Red Cell Distribution Width 15.7H, Platelet Count 184, Mean Platelet Volume 8.4, Neutrophils (%) (Auto) 78.5H, Lymphocytes (%) (Auto) 13.6L , Monocytes (%) (Auto) 6.8, Eosinophils (%) (Auto) 0.5, Basophils (%) (Auto) 0.6 , Sodium Level 136, Potassium Level 5.1, Chloride Level 99, Carbon Dioxide Level 19L, Anion Gap 18H, Blood Urea Nitrogen 37H, Creatinine 3.7#H, Estimat Glomerular Filtration Rate 14.8, Glucose Level 251H, Hemoglobin A1c 13.7H, Uric Acid 10.9H, Calcium Level 8.8, Phosphorus Level 5.1H, Magnesium Level 1.9, Total Bilirubin 0.6, Gamma Glutamyl Transpeptidase 234H, Aspartate Amino Transf (AST/SGOT) 147H, Alanine Aminotransferase (ALT/SGPT) 91H, Alkaline Phosphatase 183H, Total Creatine Kinase 151, Pro-B-Type Natriuretic Peptide 97606O, Total Protein 6.9, Albumin 2.6L, Globulin 4.3, Albumin/Globulin Ratio 0.6L, Vitamin B12 Level 1187H, Folate 21.1, Thyroid Stimulating Hormone (TSH) 0.807 Height (Feet): 5 Height (Inches): 4.00 Weight (Pounds): 205 General Appearance: no apparent distress, alert Neck: non-tender, normal alignment Cardiovascular: normal peripheral pulses, normal rate, regular rhythm Respiratory/Chest: chest wall non-tender, lungs clear, normal breath sounds Abdomen: normal bowel sounds, non tender Extremities: normal range of motion, non-tender Neurologic: supervisor hand silvering II-XII grossly normal, no motor/sensory deficits Fernando Bonner MD Jan 06, 2019 15:39
--- NOTE | 2019-01-06 15:48 | NUR ---
NURSE NOTES: Spoke to Erin from 's office to send a message that patient refuses to have urinary catheter to be inserted.
--- NOTE | 2019-01-06 15:57 | Cardiac Electrophysiology PN ---
Assessment/Plan Assessment/Plan 1. Non-ST elevation myocardial infarction and troponin of 2.1. Could be due to renal failure. Creatinine is 3.7. The patient however does not have any chest pain [place] 19153 ECG lateral T wave inversion. 2. CHF with EF 35%. On Lopressor, Lasix , Hydralzine and isordil 3. HTN On CHF meds 4. Renal failure. Creatinine 3.7. 5. Uncontrolled diabetes. Glucose 436. 6. Hyponatremia. DW RN Subjective Subjective No events. RN at bedside. EF 35%. No CP or SOB. Family thinks she is confused but she is alert and oriented. Objective Last 24 Hour Vital Signs Date Time Temp Pulse Resp B/P (MAP) Pulse Ox O2 Delivery O2 Flow Rate FiO2 01/06/19 14:00 96/57 01/06/19 12:00 98.5 74 20 96/57 (70) 97 01/06/19 12:00 Nasal Cannula 2.0 01/06/19 11:57 74 01/06/19 09:00 105/69 01/06/19 09:00 75 105/69 01/06/19 08:00 97.6 75 19 105/69 (81) 97 01/06/19 08:00 Nasal Cannula 2.0 01/06/19 07:39 77 01/06/19 05:38 120/70 01/06/19 04:00 77 01/06/19 04:00 Nasal Cannula 2.0 01/06/19 03:52 97.7 78 18 120/70 (87) 95 01/06/19 00:00 68 01/06/19 00:00 Nasal Cannula 2.0 01/05/19 23:03 98.6 80 22 130/99 (109) 93 01/05/19 22:00 98/62 01/05/19 20:09 71 98/62 01/05/19 20:00 Nasal Cannula 2.0 01/05/19 20:00 70 01/05/19 19:31 97.9 71 20 98/62 (74) 100 01/05/19 16:00 97.5 70 22 125/78 (94) 100 01/05/19 16:00 Nasal Cannula 2.0 01/05/19 15:50 66 Intake and Output 01/05/19 01/06/19 19:00 07:00 Intake Total 360 ml 480 ml Balance 360 ml 480 ml Intake Oral 360 ml 480 ml # Voids 2 2 # Bowel Movements 2 Laboratory Tests Test 01/05/19 16:50 01/06/19 04:00 D-Dimer 8.10 mg/L FEU (0.00-0.49) H Troponin I 2.250 ng/mL (0.000-0.056) 1.717 ng/mL (0.000-0.056) C-Reactive Protein, Quantitative 7.1 mg/dL (0.00-0.90) H 9.2 mg/dL (0.00-0.90) H White Blood Count 5.7 K/UL (4.8-10.8) Red Blood Count 4.85 M/UL (4.20-5.40) Hemoglobin 11.9 G/DL (12.0-16.0) L Hematocrit 37.8 % (37.0-47.0) Mean Corpuscular Volume 78 FL (80-99) L Mean Corpuscular Hemoglobin 24.5 PG (27.0-31.0) L Mean Corpuscular Hemoglobin Concent 31.4 G/DL (32.0-36.0) L Red Cell Distribution Width 15.7 % (11.6-14.8) H Platelet Count 184 K/UL (150-450) Mean Platelet Volume 8.4 FL (6.5-10.1) Neutrophils (%) (Auto) 78.5 % (45.0-75.0) H Lymphocytes (%) (Auto) 13.6 % (20.0-45.0) L Monocytes (%) (Auto) 6.8 % (1.0-10.0) Eosinophils (%) (Auto) 0.5 % (0.0-3.0) Basophils (%) (Auto) 0.6 % (0.0-2.0) Sodium Level 136 MMOL/L (136-145) Potassium Level 5.1 MMOL/L (3.5-5.1) Chloride Level 99 MMOL/L (98-107) Carbon Dioxide Level 19 MMOL/L (21-32) L Anion Gap 18 mmol/L (5-15) H Blood Urea Nitrogen 37 mg/dL (7-18) H Creatinine 3.7 MG/DL (0.55-1.30) #H Estimat Glomerular Filtration Rate 14.8 mL/min (>60) Glucose Level 251 MG/DL (74-106) H Hemoglobin A1c 13.7 % (4.3-6.0) H Uric Acid 10.9 MG/DL (2.6-7.2) H Calcium Level 8.8 MG/DL (8.5-10.1) Phosphorus Level 5.1 MG/DL (2.5-4.9) H Magnesium Level 1.9 MG/DL (1.8-2.4) Total Bilirubin 0.6 MG/DL (0.2-1.0) Gamma Glutamyl Transpeptidase 234 U/L (5-85) H Aspartate Amino Transf (AST/SGOT) 147 U/L (15-37) H Alanine Aminotransferase (ALT/SGPT) 91 U/L (12-78) H Alkaline Phosphatase 183 U/L (46-116) H Total Creatine Kinase 151 U/L (26-308) Pro-B-Type Natriuretic Peptide 76497 pg/mL (0-125) H Total Protein 6.9 G/DL (6.4-8.2) Albumin 2.6 G/DL (3.4-5.0) L Globulin 4.3 g/dL Albumin/Globulin Ratio 0.6 (1.0-2.7) L Vitamin B12 Level 1187 PG/ML (193-986) H Folate 21.1 NG/ML (8.6-58.9) Thyroid Stimulating Hormone (TSH) 0.807 uiU/mL (0.358-3.740) Objective HEAD AND NECK: No JVD. LUNGS: Clear. CARDIOVASCULAR: Regular S1 and S2 with no gallop or murmur. ABDOMEN: Soft. EXTREMITIES: No pitting. Froilan Vallecillo MD Jan 06, 2019 15:57
--- NOTE | 2019-01-06 15:58 | NUR ---
NURSE NOTES: Dr. Smallwood's at bedside and aware that patient refuses the insertion of urinary catheter.
[2019-01-06 16:00] VITALS: BP 118/58
--- NOTE | 2019-01-06 16:02 | Cardiology Report ---
APPROVED REPORT EKG Measurement Heart [id number] MI [id number] Normal sinus rhythm Possible Left atrial enlargement Cannot rule out Inferior infarct, age undetermined Abnormal ECG
--- NOTE | 2019-01-06 16:08 | NUR ---
NURSE NOTES: Been calling Cardiology/Echo department for the 2dEcho result, but no answer.
--- NOTE | 2019-01-06 16:48 | Diagnostic Imaging Report ---
Indication: Acute renal failure, abnormal renal function tests, abnormal liver function tests Technique: Grayscale and duplex images of the kidneys, retroperitoneum, and bladder were obtained. Comparison: none Findings: Right kidney measures 11.5 cm in length. Left kidney measures 11 cm in length. Both kidneys demonstrate normal echogenicity. No hydronephrosis. The right kidney demonstrates multiple cysts. Possible punctate calcification noted in the left lower pole renal sinus.. Normal inferior vena cava. Bladder is normal, demonstrates normal ureteral jets. Incidentally noted are multiple cysts in the included right hepatic lobe. Impression: Negative for hydronephrosis Possible nonobstructive left renal calyceal calculus Multiple right renal cysts are incidentally noted. Incidental finding of right hepatic lobe cysts.
--- NOTE | 2019-01-06 19:14 | NUR ---
HAND-OFF: Report given to BUSHRA Abbott. Patient in bed and stable.
--- NOTE | 2019-01-06 19:15 | NUR ---
NURSE NOTES: Bedside report received from BUSHRA Crump. Patient is x4, able to follow commands, make needs known. Skin is intact, clean, and dry. Accuchek is ACHS, last one 180. Will continue to monitor. IV sites LH 22, RAC 20c; asymptomatic. Labs OK per RNMD aware. Received mag sulfate, potassium phosphate, and currently running albumin through RAC. Family is at bedside. Bed is locked in lowest position, side rails x3, bed alarm on, call garcía within reach. Will continue to monitor and follow plan of care.
[2019-01-06 20:00] VITALS: BP 104/64
[2019-01-06] MEDS: Atorvastatin 20mg tab ORAL SCH (20:10)
[2019-01-06] MEDS: Levemir Flexpen SUBQ SCH (20:12)
--- NOTE | 2019-01-06 20:47 | Pulmonology Progress Note ---
Assessment/Plan Problems: (1) Cardiomegaly (2) Atelectasis (3) Noncompliance (4) Hyperglycemia (5) NSTEMI (non-ST elevated myocardial infarction) (6) ANGIE (acute kidney injury) (7) Delusion Assessment/Plan ASSESSMENT: The patient is a 68-year-old female with history of obesity, possible GHANSHYAM, type 2 diabetes, noncompliant with medical care, presenting with generalized malaise and a eyq-ZZ-pdhyyhrii MO with evidence of acute kidney injury. The patient is mildly hypoxemic, likely secondary to a component of decompensated heart failure. I will apply a duplex and D-dimer to rule out venous thromboembolism. PROBLEM LIST: 1. Non ST-elevation MO. 2. Mild hypoxemia. 3. Hyperglycemia. 4. Type 2 diabetes, noncompliant with medical treatment. 5. ANGIE versus CKD. 6. Hypertension. 7. Obesity. 8. Snoring. TREATMENT PLAN: 1. Optimize pulmonary hygiene/mobilize as tolerated. 2. Titrate down FiO2 to keep saturations greater 90%. 3. F/U ABG 4. F/U VQ (given elevated D-dimer and negative duplex) 5. Follow up final echocardiogram. 6. Monitor volumes and renal function. 7. F/U renal recs --> agree with IVF challenge 8. Follow Cardiology recommendations, medical management of non-STEMI, will need ischemia evaluation at some point. 9. Consider discontinue Lovenox and switch to heparin given abnormal renal function. 10. The patient should have outpatient sleep study. 11. DVT prophylaxis. The patient is on low-molecular weight heparin, Subjective Allergies: Coded Allergies: No Known Allergies (Unverified , 01/04/19) Subjective AFVSS stable o2 needs D-dimer elevated Duplex negative No SOB no cough no wheezing no FC Objective Last 24 Hour Vital Signs Date Time Temp Pulse Resp B/P (MAP) Pulse Ox O2 Delivery O2 Flow Rate FiO2 01/06/19 20:10 72 104/64 01/06/19 16:00 73 01/06/19 16:00 97.3 71 19 118/58 (78) 91 01/06/19 16:00 Nasal Cannula 2.0 01/06/19 14:00 96/57 01/06/19 12:00 98.5 74 20 96/57 (70) 97 01/06/19 12:00 Nasal Cannula 2.0 01/06/19 11:57 74 01/06/19 09:00 105/69 01/06/19 09:00 75 105/69 01/06/19 08:00 97.6 75 19 105/69 (81) 97 01/06/19 08:00 Nasal Cannula 2.0 01/06/19 07:39 77 01/06/19 05:38 120/70 01/06/19 04:00 77 01/06/19 04:00 Nasal Cannula 2.0 01/06/19 03:52 97.7 78 18 120/70 (87) 95 01/06/19 00:00 68 01/06/19 00:00 Nasal Cannula 2.0 01/05/19 23:03 98.6 80 22 130/99 (109) 93 01/05/19 22:00 98/62 Intake and Output 01/05/19 01/06/19 19:00 07:00 Intake Total 360 ml 480 ml Balance 360 ml 480 ml Intake Oral 360 ml 480 ml # Voids 2 2 # Bowel Movements 2 General Appearance: WD/WN, no acute distress HEENT: normocephalic, atraumatic, anicteric, mucous membranes moist Respiratory/Chest: chest wall non-tender, lungs clear, normal breath sounds, no respiratory distress, no accessory muscle use Cardiovascular: normal peripheral pulses, normal rate, regular rhythm Abdomen: normal bowel sounds, soft, non tender, no organomegaly, non distended , no mass Extremities: no cyanosis, no clubbing, no edema Laboratory Tests 01/06/19 04:00: White Blood Count 5.7, Red Blood Count 4.85, Hemoglobin 11.9L, Hematocrit 37.8, Mean Corpuscular Volume 78L, Mean Corpuscular Hemoglobin 24.5L, Mean Corpuscular Hemoglobin Concent 31.4L, Red Cell Distribution Width 15.7H, Platelet Count 184, Mean Platelet Volume 8.4, Neutrophils (%) (Auto) 78.5H, Lymphocytes (%) (Auto) 13.6L, Monocytes (%) (Auto) 6.8, Eosinophils (%) (Auto) 0.5, Basophils (%) (Auto) 0.6, Sodium Level 136, Potassium Level 5.1, Chloride Level 99, Carbon Dioxide Level 19L, Anion Gap 18H, Blood Urea Nitrogen 37H, Creatinine 3.7#H, Estimat Glomerular Filtration Rate 14.8, Glucose Level 251H, Hemoglobin A1c 13.7H, Uric Acid 10.9H, Calcium Level 8.8, Phosphorus Level 5.1H , Magnesium Level 1.9, Total Bilirubin 0.6, Gamma Glutamyl Transpeptidase 234H, Aspartate Amino Transf (AST/SGOT) 147H, Alanine Aminotransferase (ALT/SGPT) 91H , Alkaline Phosphatase 183H, Total Creatine Kinase 151, Troponin I 1.717H, C- Reactive Protein, Quantitative 9.2H, Pro-B-Type Natriuretic Peptide 27377W, Total Protein 6.9, Albumin 2.6L, Globulin 4.3, Albumin/Globulin Ratio 0.6L, Vitamin B12 Level 1187H, Folate 21.1, Thyroid Stimulating Hormone (TSH) 0.807 01/06/19 17:00: Troponin I 1.857H Current Medications Medications (Trade) Dose Ordered Sig/Nessa Route PRN Reason Start Time Stop Time Status Last Admin Dose Admin Acetaminophen (Tylenol) 650 mg Q6H PRN ORAL Mild Pain/Temp > 100.5 01/05/19 18:30 02/04/19 18:29 Aspirin (ASA) 81 mg DAILY ORAL 01/05/19 09:00 02/04/19 08:59 01/06/19 09:05 Atorvastatin Calcium (Lipitor) 40 mg BEDTIME ORAL 01/06/19 21:00 02/03/19 20:59 01/06/19 20:10 Dextrose (Dextrose 50%) 25 ml Q30M PRN IV Hypoglycemia 01/04/19 17:00 02/03/19 16:59 Dextrose (Dextrose 50%) 50 ml Q30M PRN IV Hypoglycemia 01/04/19 17:00 02/03/19 16:59 Enoxaparin Sodium (Lovenox) 80 mg DAILY SUBQ 01/04/19 17:00 02/03/19 16:59 01/06/19 09:05 Hydralazine HCl (Apresoline) 10 mg Q8HR ORAL 01/06/19 14:00 02/04/19 21:59 Insulin Aspart (NovoLOG) BEFORE MEALS AND HS SUBQ 01/04/19 21:00 02/03/19 20:59 01/06/19 16:49 Insulin Detemir (Levemir) 10 units BEDTIME SUBQ 01/06/19 21:00 02/03/19 20:59 Isosorbide Mononitrate (Imdur) 30 mg DAILY ORAL 01/06/19 09:00 02/05/19 08:59 Metoprolol Tartrate (Lopressor) 25 mg EVERY 12 HOURS ORAL 01/06/19 21:00 02/03/19 20:59 Ondansetron HCl (Zofran) 4 mg Q6H PRN IVP Nausea & Vomiting 01/04/19 17:00 02/03/19 16:59 01/06/19 01:24 Pantoprazole (Protonix) 40 mg DAILY ORAL 01/05/19 10:15 02/04/19 10:14 01/06/19 09:05 Velasquez Wisdom MD Jan 06, 2019 20:47
--- NOTE | 2019-01-06 20:49 | NUR ---
RESPIRATORY NOTE:pt refused abg and stated she does not want her blood taken tonight. BUSHRA Abbott notified of pt refusing.
--- NOTE | 2019-01-06 21:00 | NUR ---
NURSE NOTES: PT REFUSED 2100 MEDS AND ACCUCHEK. EDUCATED PT OF COMPLICATIONS OF NON-COMPLIANCE WITH DM2 MEDS. EDUCATED ON BENEFITS OF COMPLIANCE AND BETTERMENT OF CURRENT SYMPTOMS. PT STILL REFUSED AND SAID "SHE DOES NOT WANT TO BE POKED ANYMORE" AND "YOU CAN REPEAT YOURSELF UNTIL THE COWS COME HOME, BUT I'M NOT GETTING POKED." PT IS VERY AGGRESSIVE WITH TONE AND BODY LANGUAGE AND SEEMS TO NOT COMPREHEND THE IMPACT OF NONCOMPLIANCE ON HER DIAGNOSIS AND HEALTH. WILL CONTINUE TO MONITOR AND FOLLOW PLAN OF CARE.
--- NOTE | 2019-01-06 21:30 | Consultation ---
History of Present Illness General Chief Complaint: Generalized Weakness Present Illness HPI 68-year-old woman with mmp and hx of psychiatric do who was brought to the emergency room complaining of generalized weakness. the pt has been irritable and anxious. the pt stated to pmd that she believes her sister is poisoning her. During the eval the pt was paranoid and stated that she didn't want to talk about it. the pt is agitated at times. The pt is refusing care. the pt is depressed and low energy. the pt has poor insight. Allergies: Coded Allergies: No Known Allergies (Unverified , 01/04/19) Medication History Scheduled Hydrochlorothiazide* (Hydrochlorothiazide*), Unknown Dose ORAL DAILY, (Reported) Metformin Hcl (Glucophage), Unknown Dose ORAL DAILY, (Reported) Miscellaneous Medications Glipizide (Glipizide), Unknown Dose PO, (Reported) Patient History Limited by: medical condition History Provided By: Patient, Family Member, Medical Record, PMD Healthcare decision maker Marry King Resuscitation status Full Code Advanced Directive on File Past Medical/Surgical History Past Medical/Surgical History: (1) Cardiomegaly (2) Atelectasis (3) Noncompliance (4) Hyperglycemia (5) NSTEMI (non-ST elevated myocardial infarction) (6) ANGIE (acute kidney injury) (7) Delusion (8) Schizophrenia (9) MDD (major depressive disorder) Review of Systems Psychiatric: Reports: prior hx, anxiety, depressed feelings, hallucinations - delusional Physical Exam General Appearance: WD/WN, no apparent distress, alert, overweight Neurologic: alert, oriented x 3, responsive, depressed affect Last 24 Hour Vital Signs Date Time Temp Pulse Resp B/P (MAP) Pulse Ox O2 Delivery O2 Flow Rate FiO2 01/06/19 20:10 72 104/64 01/06/19 16:00 73 01/06/19 16:00 97.3 71 19 118/58 (78) 91 01/06/19 16:00 Nasal Cannula 2.0 01/06/19 14:00 96/57 01/06/19 12:00 98.5 74 20 96/57 (70) 97 01/06/19 12:00 Nasal Cannula 2.0 01/06/19 11:57 74 01/06/19 09:00 105/69 01/06/19 09:00 75 105/69 2/20/19 08:00 97.6 75 19 105/69 (81) 97 01/06/19 08:00 Nasal Cannula 2.0 01/06/19 07:39 77 01/06/19 05:38 120/70 01/06/19 04:00 77 01/06/19 04:00 Nasal Cannula 2.0 01/06/19 03:52 97.7 78 18 120/70 (87) 95 01/06/19 00:00 68 01/06/19 00:00 Nasal Cannula 2.0 01/05/19 23:03 98.6 80 22 130/99 (109) 93 01/05/19 22:00 98/62 Intake and Output 01/05/19 01/06/19 19:00 07:00 Intake Total 360 ml 480 ml Balance 360 ml 480 ml Intake Oral 360 ml 480 ml # Voids 2 2 # Bowel Movements 2 Laboratory Tests Test 01/06/19 04:00 01/06/19 17:00 White Blood Count 5.7 K/UL (4.8-10.8) Red Blood Count 4.85 M/UL (4.20-5.40) Hemoglobin 11.9 G/DL (12.0-16.0) L Hematocrit 37.8 % (37.0-47.0) Mean Corpuscular Volume 78 FL (80-99) L Mean Corpuscular Hemoglobin 24.5 PG (27.0-31.0) L Mean Corpuscular Hemoglobin Concent 31.4 G/DL (32.0-36.0) L Red Cell Distribution Width 15.7 % (11.6-14.8) H Platelet Count 184 K/UL (150-450) Mean Platelet Volume 8.4 FL (6.5-10.1) Neutrophils (%) (Auto) 78.5 % (45.0-75.0) H Lymphocytes (%) (Auto) 13.6 % (20.0-45.0) L Monocytes (%) (Auto) 6.8 % (1.0-10.0) Eosinophils (%) (Auto) 0.5 % (0.0-3.0) Basophils (%) (Auto) 0.6 % (0.0-2.0) Sodium Level 136 MMOL/L (136-145) Potassium Level 5.1 MMOL/L (3.5-5.1) Chloride Level 99 MMOL/L (98-107) Carbon Dioxide Level 19 MMOL/L (21-32) L Anion Gap 18 mmol/L (5-15) H Blood Urea Nitrogen 37 mg/dL (7-18) H Creatinine 3.7 MG/DL (0.55-1.30) #H Estimat Glomerular Filtration Rate 14.8 mL/min (>60) Glucose Level 251 MG/DL (74-106) H Hemoglobin A1c 13.7 % (4.3-6.0) H Uric Acid 10.9 MG/DL (2.6-7.2) H Calcium Level 8.8 MG/DL (8.5-10.1) Phosphorus Level 5.1 MG/DL (2.5-4.9) H Magnesium Level 1.9 MG/DL (1.8-2.4) Total Bilirubin 0.6 MG/DL (0.2-1.0) Gamma Glutamyl Transpeptidase 234 U/L (5-85) H Aspartate Amino Transf (AST/SGOT) 147 U/L (15-37) H Alanine Aminotransferase (ALT/SGPT) 91 U/L (12-78) H Alkaline Phosphatase 183 U/L (46-116) H Total Creatine Kinase 151 U/L (26-308) Troponin I 1.717 ng/mL (0.000-0.056) 1.857 ng/mL (0.000-0.056) C-Reactive Protein, Quantitative 9.2 mg/dL (0.00-0.90) H Pro-B-Type Natriuretic Peptide 35427 pg/mL (0-125) H Total Protein 6.9 G/DL (6.4-8.2) Albumin 2.6 G/DL (3.4-5.0) L Globulin 4.3 g/dL Albumin/Globulin Ratio 0.6 (1.0-2.7) L Vitamin B12 Level 1187 PG/ML (193-986) H Folate 21.1 NG/ML (8.6-58.9) Thyroid Stimulating Hormone (TSH) 0.807 uiU/mL (0.358-3.740) Height (Feet): 5 Height (Inches): 4.00 Weight (Pounds): 205 Medications Current Medications Medications (Trade) Dose Ordered Sig/Nessa Route PRN Reason Start Time Stop Time Status Last Admin Dose Admin Acetaminophen (Tylenol) 650 mg Q6H PRN ORAL Mild Pain/Temp > 100.5 01/05/19 18:30 02/04/19 18:29 Aspirin (ASA) 81 mg DAILY ORAL 01/05/19 09:00 02/04/19 08:59 01/06/19 09:05 Atorvastatin Calcium (Lipitor) 40 mg BEDTIME ORAL 01/06/19 21:00 02/03/19 20:59 01/06/19 20:10 Dextrose (Dextrose 50%) 25 ml Q30M PRN IV Hypoglycemia 01/04/19 17:00 02/03/19 16:59 Dextrose (Dextrose 50%) 50 ml Q30M PRN IV Hypoglycemia 01/04/19 17:00 02/03/19 16:59 Enoxaparin Sodium (Lovenox) 80 mg DAILY SUBQ 01/04/19 17:00 02/03/19 16:59 01/06/19 09:05 Hydralazine HCl (Apresoline) 10 mg Q8HR ORAL 01/06/19 14:00 02/04/19 21:59 Insulin Aspart (NovoLOG) BEFORE MEALS AND HS SUBQ 01/04/19 21:00 02/03/19 20:59 01/06/19 16:49 Insulin Detemir (Levemir) 10 units BEDTIME SUBQ 01/06/19 21:00 02/03/19 20:59 Isosorbide Mononitrate (Imdur) 30 mg DAILY ORAL 01/06/19 09:00 02/05/19 08:59 Metoprolol Tartrate (Lopressor) 25 mg EVERY 12 HOURS ORAL 01/06/19 21:00 02/03/19 20:59 Ondansetron HCl (Zofran) 4 mg Q6H PRN IVP Nausea & Vomiting 01/04/19 17:00 02/03/19 16:59 01/06/19 01:24 Pantoprazole (Protonix) 40 mg DAILY ORAL 01/05/19 10:15 02/04/19 10:14 01/06/19 09:05 Assessment/Plan Problem List: (1) Schizophrenia ICD Codes: F20.9 - Schizophrenia, unspecified SNOMED: 92768962 (2) MDD (major depressive disorder) ICD Codes: F32.9 - Major depressive disorder, single episode, unspecified SNOMED: 091725382 Status: unchanged Assessment/Plan risperdal 2mg po qhs the pt would benefit from ssris. the pt was educated about her medical condition the pt is illogical and lacks capacity to make decisions Mikaela Zhang MD Jan 06, 2019 21:30
[2019-01-07] VITALS: BP 100/52
--- NOTE | 2019-01-07 02:30 | NUR ---
NURSE NOTES: PT HAD EPISODE OF N/V, DAUGHTER AT BEDSIDE. REFUSING IV ZOFRAN. EDUCATED PT ON THE MEDICATION AND ITS INDICATIONS. STILL REFUSING. PT APPEARS SWEATY AND SHOWS SOB. REFUSING ALL TX. VSS AT THIS TIME. WILL CONTINUE TO MONITOR AND FOLLOW PLAN OF CARE.
--- NOTE | 2019-01-07 03:30 | NUR ---
NURSE NOTES: WAS CALLED TO THE ROOM BY PT DAUGHTER. PT WAS TRYING TO DRINK WATER AND CHOKED. SHE IS HAVING A HARD TIME HOLDING CONVERSATIONS D/T WEAKNESS AND SOB. I TOLD HER THAT I WILL KEEP HER NPO FOR NOW UNTIL THE PHYSICIAN CAN SEE HER AND/OR ST EVALUATION CAN BE DONE. UPON ADMISSION PT APPEARS WEAKER, MORE LETHARGIC. VSS AT THIS TIME. WILL CONTINUE TO MONITOR AND FOLLOW PLAN OF CARE.
[2019-01-07 05:41] LABS: BASOPHILS % (AUTO) 3.9 % (0.0-2.0); EOSINOPHILS % (AUTO) 0.8 % (0.0-3.0); HEMATOCRIT 40.1 % (37.0-47.0); HEMOGLOBIN 12.2 G/DL (12.0-16.0); LYMPHOCYTES % (AUTO) 16.1 % (20.0-45.0); MEAN CORPUSCULAR VOLUME 80 FL (80-99); MONOCYTES % (AUTO) 6.8 % (1.0-10.0); NEUTROPHILS % (AUTO) 72.4 % (45.0-75.0); PLATELET COUNT 252 K/UL (150-450); RED BLOOD COUNT 5.04 M/UL (4.20-5.40); RED CELL DISTRIBUTION WIDTH 16.2 % (11.6-14.8); WHITE BLOOD COUNT 7.3 K/UL (4.8-10.8)
[2019-01-07] MEDS: HydrALAZINE 10mg Tab ORAL SCH ×3 (06:00→21:20)
[2019-01-07] MEDS: NovoLOG Insulin Flexpen SUBQ SCH ×4 (06:16→21:15)
[2019-01-07 06:48] LABS: ALANINE AMINOTRANSFERASE 48 U/L (12-78); ALBUMIN 2.8 G/DL (3.4-5.0); ALBUMIN/GLOBULIN RATIO 0.7 (1.0-2.7); ALKALINE PHOSPHATASE 163 U/L (46-116); ANION GAP 14 mmol/L (5-15); ASPARTATE AMINO TRANSFERASE 72 U/L (15-37); BILIRUBIN,TOTAL 0.5 MG/DL (0.2-1.0); BLOOD UREA NITROGEN 32 mg/dL (7-18); CALCIUM 8.9 MG/DL (8.5-10.1); CARBON DIOXIDE 22 MMOL/L (21-32); CHLORIDE 102 MMOL/L (98-107); CREATINE KINASE 176 U/L (26-308); CREATININE 3.1 MG/DL (0.55-1.30); GAMMA GLUTAMYL TRANSPEPTIDASE 206 U/L (5-85); PHOSPHORUS 4.4 MG/DL (2.5-4.9); POTASSIUM 4.3 MMOL/L (3.5-5.1); SODIUM 138 MMOL/L (136-145)
--- NOTE | 2019-01-07 07:15 | NUR ---
HAND-OFF: Report given to BUSHRA ROMERO.
--- NOTE | 2019-01-07 07:16 | NUR ---
NURSE NOTES: Received patient from BUSHRA Abbott. Patient in bed and asleep. residential monitor in placed. Currently on nasal cannula 2L. In no apparent distress. IV site is asymptomatic. Bed in lowest position with side rails up. Will continue to follow plan of care.
--- NOTE | 2019-01-07 07:57 | NUR ---
NURSE NOTES: Dr. Smith at bedside and informed him that patient refused the Insulin Levemir last night. Doctor educated the patient the importance of complying with the treatment. Daughter is at bedside. Also, that patient is feeling weak and with low blood pressure. Received order for Insulin Levemir 10u once and ST eval due to the coughing after drinking water last night. Carried out.
[2019-01-07 08:00] VITALS: BP 101/60
--- NOTE | 2019-01-07 08:23 | General Progress Note ---
Assessment/Plan Assessment/Plan #Uncontrolled DM type 2 without evidence of DKA #Obesity #Medical noncompliance -fasting glucose of 189 this morning -continue Levemir 10 units -lispro sliding scale -patient educated about need to take insulin as prescribed, will take missed dose this morning #NSTEMI -place on cardiac monitor technician -cont ASA,Lipitor,metoprolol and Lovenox -TTE showing EF of 35%, started on Imdur and hydralazine -cardiology following #ANGIE -Cr 3.1 -given albumin yesterday -hold Lasix -avoid hypotension -Nephrology following #Pseudohyponatremia -resolved VTE PPx Lovenox Full Code I spent 45 minutes on this patient's case, and 24 minutes was dedicated to counseling and/or care coordination. Subjective Date patient seen: Jan 07, 2019 Time patient seen: 07:45 ROS Limited/Unobtainable: No Constitutional: Denies: chills, fever HEENT: Denies: eye pain Cardiovascular: Denies: chest pain Respiratory: Denies: cough Gastrointestinal/Abdominal: Denies: abdomen distended Genitourinary: Denies: burning Allergies: Coded Allergies: No Known Allergies (Unverified , 01/04/19) Subjective Medicine followup for uncontrolled DM and possible NSTEMI + ANGIE Per nursing she refused Levemir last night. Objective Last 24 Hour Vital Signs Date Time Temp Pulse Resp B/P (MAP) Pulse Ox O2 Delivery O2 Flow Rate FiO2 01/07/19 06:00 100/52 01/07/19 04:00 Nasal Cannula 2.0 01/07/19 04:00 60 01/07/19 00:00 98.2 71 24 100/52 (68) 92 01/07/19 00:00 Nasal Cannula 2.0 01/07/19 00:00 69 01/06/19 22:00 104/64 01/06/19 20:10 72 104/64 01/06/19 20:00 71 01/06/19 20:00 97.7 72 24 104/64 (77) 92 01/06/19 20:00 Nasal Cannula 2.0 01/06/19 16:00 73 01/06/19 16:00 97.3 71 19 118/58 (78) 91 01/06/19 16:00 Nasal Cannula 2.0 01/06/19 14:00 96/57 01/06/19 12:00 98.5 74 20 96/57 (70) 97 01/06/19 12:00 Nasal Cannula 2.0 01/06/19 11:57 74 01/06/19 09:00 105/69 01/06/19 09:00 75 105/69 Intake and Output 01/06/19 01/07/19 19:00 07:00 Intake Total 100 ml 240 ml Balance 100 ml 240 ml Intake Oral 100 ml 240 ml # Voids 1 1 Laboratory Tests 01/06/19 17:00: Troponin I 1.857H 01/07/19 03:20: Troponin I 1.894H, White Blood Count 7.3, Red Blood Count 5.04, Hemoglobin 12.2 , Hematocrit 40.1, Mean Corpuscular Volume 80, Mean Corpuscular Hemoglobin 24.1L , Mean Corpuscular Hemoglobin Concent 30.3L, Red Cell Distribution Width 16.2H, Platelet Count 252, Mean Platelet Volume 7.8, Neutrophils (%) (Auto) 72.4, Lymphocytes (%) (Auto) 16.1L, Monocytes (%) (Auto) 6.8, Eosinophils (%) (Auto) 0.8, Basophils (%) (Auto) 3.9H, Sodium Level 138, Potassium Level 4.3, Chloride Level 102, Carbon Dioxide Level 22, Anion Gap 14, Blood Urea Nitrogen 32H, Creatinine 3.1H, Estimat Glomerular Filtration Rate 18.3, Glucose Level 189H, Uric Acid 9.0H, Calcium Level 8.9, Phosphorus Level 4.4, Magnesium Level 2.0, Total Bilirubin 0.5, Gamma Glutamyl Transpeptidase 206H, Aspartate Amino Transf (AST/SGOT) 72H, Alanine Aminotransferase (ALT/SGPT) 48, Alkaline Phosphatase 163H, Total Creatine Kinase 176, Pro-B-Type Natriuretic Peptide 76506P, Total Protein 6.9, Albumin 2.8L, Globulin 4.1, Albumin/Globulin Ratio 0.7L Height (Feet): 5 Height (Inches): 4.00 Weight (Pounds): 205 General Appearance: no apparent distress, alert EENT: normal ENT inspection Neck: non-tender, supple Cardiovascular: normal peripheral pulses, normal rate, regular rhythm, regularly irregular Respiratory/Chest: chest wall non-tender, lungs clear, normal breath sounds Abdomen: normal bowel sounds, non tender, soft Fernando Bonner MD Jan 07, 2019 08:23
[2019-01-07] MEDS: Aspirin Baby 81mg ORAL SCH (08:59)
[2019-01-07] MEDS: Metoprolol 25mg tab ORAL SCH ×2 (09:00→21:00)
[2019-01-07] MEDS: Imdur 30mg tab ORAL SCH (09:00)
[2019-01-07] MEDS: Enoxaparin 80mg Inj SUBQ SCH (09:01)
[2019-01-07] MEDS ORDERED: Levemir Flexpen SUBQ SCH (10:00)
--- NOTE | 2019-01-07 10:45 | NUR ---
NURSE NOTES: Found two wounds on the left ankle. Informed charge nurse and wound care nurse. Also informed Dr. Smith and received an order for a wound care physician consult for Dr. Baeza. Carried out.
--- NOTE | 2019-01-07 11:54 | General Progress Note ---
Assessment/Plan Problem List: (1) Schizophrenia ICD Codes: F20.9 - Schizophrenia, unspecified SNOMED: 66614245 (2) MDD (major depressive disorder) ICD Codes: F32.9 - Major depressive disorder, single episode, unspecified SNOMED: 530194037 Status: unchanged Assessment/Plan Risperdal 2mg po qhs the pt was more receptive to cooperate with compliance and control analyst. case was dw primary and pts daughter Subjective Neurologic/Psychiatric: Reports: anxiety, depressed, emotional problems Allergies: Coded Allergies: No Known Allergies (Unverified , 01/04/19) Subjective the pt was irritable and anxious the pt believes that her sister was poising her the pt was refusing Morin placement the pts daughter was in the room and stated that her mom has been depressed and paranoid for a while the pt has poor insight. the pt stated that doctors are wrong and there is nothing wrong with her Objective Last 24 Hour Vital Signs Date Time Temp Pulse Resp B/P (MAP) Pulse Ox O2 Delivery O2 Flow Rate FiO2 01/07/19 09:00 76 101/60 01/07/19 09:00 101/60 01/07/19 08:00 Nasal Cannula 2.0 01/07/19 08:00 98.4 76 24 101/60 (74) 91 01/07/19 07:36 62 01/07/19 06:00 100/52 01/07/19 04:00 Nasal Cannula 2.0 01/07/19 04:00 60 01/07/19 00:00 98.2 71 24 100/52 (68) 92 01/07/19 00:00 Nasal Cannula 2.0 01/07/19 00:00 69 01/06/19 22:00 104/64 01/06/19 20:10 72 104/64 01/06/19 20:00 71 01/06/19 20:00 97.7 72 24 104/64 (77) 92 01/06/19 20:00 Nasal Cannula 2.0 01/06/19 16:00 73 01/06/19 16:00 97.3 71 19 118/58 (78) 91 01/06/19 16:00 Nasal Cannula 2.0 01/06/19 14:00 96/57 01/06/19 12:00 98.5 74 20 96/57 (70) 97 01/06/19 12:00 Nasal Cannula 2.0 01/06/19 11:57 74 Intake and Output 01/06/19 01/07/19 19:00 07:00 Intake Total 100 ml 240 ml Balance 100 ml 240 ml Intake Oral 100 ml 240 ml # Voids 1 1 Laboratory Tests 01/06/19 17:00: Troponin I 1.857H 01/07/19 03:20: Troponin I 1.894H, White Blood Count 7.3, Red Blood Count 5.04, Hemoglobin 12.2 , Hematocrit 40.1, Mean Corpuscular Volume 80, Mean Corpuscular Hemoglobin 24.1L , Mean Corpuscular Hemoglobin Concent 30.3L, Red Cell Distribution Width 16.2H, Platelet Count 252, Mean Platelet Volume 7.8, Neutrophils (%) (Auto) 72.4, Lymphocytes (%) (Auto) 16.1L, Monocytes (%) (Auto) 6.8, Eosinophils (%) (Auto) 0.8, Basophils (%) (Auto) 3.9H, Sodium Level 138, Potassium Level 4.3, Chloride Level 102, Carbon Dioxide Level 22, Anion Gap 14, Blood Urea Nitrogen 32H, Creatinine 3.1H, Estimat Glomerular Filtration Rate 18.3, Glucose Level 189H, Uric Acid 9.0H, Calcium Level 8.9, Phosphorus Level 4.4, Magnesium Level 2.0, Total Bilirubin 0.5, Gamma Glutamyl Transpeptidase 206H, Aspartate Amino Transf (AST/SGOT) 72H, Alanine Aminotransferase (ALT/SGPT) 48, Alkaline Phosphatase 163H, Total Creatine Kinase 176, Pro-B-Type Natriuretic Peptide 40287M, Total Protein 6.9, Albumin 2.8L, Globulin 4.1, Albumin/Globulin Ratio 0.7L Height (Feet): 5 Height (Inches): 4.00 Weight (Pounds): 205 General Appearance: WD/WN, alert, moderate distress, overweight Neurologic: oriented x 3, depressed affect Mikaela Zhang MD Jan 07, 2019 11:54
[2019-01-07 12:00] VITALS: BP 124/70
--- NOTE | 2019-01-07 12:00 | NUR ---
NURSE NOTES: During VQ scan in nuclear medicine, IV site became infiltrated. Retried to insert IV, but unsuccessful. Came back up to the unit and informed Charge Nurse. Will try to reinsert IV again.
--- NOTE | 2019-01-07 12:10 | NUR ---
NURSE NOTES: Patient refuses to have blood sugar to be checked and insulin novolog. She stated,"Leave me alone, I have been poked too many times". Educated her the risks.
--- NOTE | 2019-01-07 12:16 | NUR ---
P.T Note: P.T evaluation completed and treatment initiated. Please refer to P.T evaluation for current functional status. Pt is alert, O x 4 and cooperative. Pt appeared fatigued and exhausted even with conversation. Pt denied c/o pain and was agreeable to participate in P.T evaluation. Pt currently require MIN A X 1 for bed mobility and transfer activities using the FWW. Pt was only able to ambulate with FWW, MIN A not more than 4 steps, due to dizziness , fatigue and feeling exhausted. Pt is limited by generalized weakness, poor activity tolerance, SOB and symptomatic orthostatics resulting to dizziness : BP was 99/66 in sitting then dropped to 66/33 mmhg after standing and gait/ambulation assessment. BP recovered to 110/68 mmhg after pt was positioned to Trendelenberg position. RN notified/aware. Skilled P.T service is warranted to improve strength, endurance /activity tolerance to improve her ADL/functional mobility independence and safety. Recommend SNF for further rehab VS home with P.T depending on progress. DME to include FWW. Hernandez for this referral.
--- NOTE | 2019-01-07 13:30 | NUR ---
ST NOTE: RECEIVED ST EVAL ORDER. CURRENTLY, PT IS ASLEEP. WILL RE-ATTEMPT WHEN ABLE. RNHEATHER, NOTIFIED.
--- NOTE | 2019-01-07 13:59 | NUR ---
ST NOTE: RE-ATTEMPTED SWALLOW EVAL HOWEVER, PT VOMITED. RN, HEATHER NOTIFIED. WILL RE-ATTEMPT.
--- NOTE | 2019-01-07 14:00 | NUR ---
NURSE NOTES: Patient still refuses for the urinary catheter to be inserted because she states that she is able to urinate.
--- NOTE | 2019-01-07 14:38 | NUR ---
NURSE NOTES:Pt presents with #2 ulcers posterior /distal L tibia .Pt stated having wounds since last August and denied previously been seen by a Physician for wounds . Pt unable to provide etiology of wounds. Proximal wound 100% necrotic ,malodorous without exudate(L)1.5cm x (W)1.7cm.Second wound inferior but uin close proximity .Base of wound with necrosis /slough and is malodorous .Small amt brown exudate noted .Periwound without fluctuance, induration or elevation in skin temp.Pt verbalized tenderness when area around wound palpated. Recommendations:Apply Betadine swabs to both wounds.Cover with Optifoam drsg Daily and prn.
[2019-01-07 16:00] VITALS: BP 119/73
--- NOTE | 2019-01-07 16:33 | Cardiac Electrophysiology PN ---
Assessment/Plan Assessment/Plan 1. Non-ST elevation myocardial infarction and troponin of 2.1. Levels are flat. Could be due to renal failure. Creatinine is 3.7. Denies any chest pain and B[place] more than 09227 ECG lateral T wave inversion. 2. CHF with EF 35%. On Lopressor, Hydralzine and isordil 3. HTN On CHF meds 4. Renal failure. Creatinine 3.7. Off Lasix and Aldactone 5. Uncontrolled diabetes. Glucose 436. 6. Hyponatremia. DW RN Subjective Subjective No events. EF 35%. No CP or SOB. Objective Last 24 Hour Vital Signs Date Time Temp Pulse Resp B/P (MAP) Pulse Ox O2 Delivery O2 Flow Rate FiO2 01/07/19 14:00 124/70 01/07/19 12:00 Nasal Cannula 4.0 01/07/19 12:00 96.9 64 26 124/70 (88) 96 01/07/19 11:31 71 01/07/19 09:00 76 101/60 01/07/19 09:00 101/60 01/07/19 08:00 Nasal Cannula 2.0 01/07/19 08:00 98.4 76 24 101/60 (74) 91 01/07/19 07:36 62 01/07/19 06:00 100/52 01/07/19 04:00 Nasal Cannula 2.0 01/07/19 04:00 60 01/07/19 00:00 98.2 71 24 100/52 (68) 92 01/07/19 00:00 Nasal Cannula 2.0 01/07/19 00:00 69 01/06/19 22:00 104/64 01/06/19 20:10 72 104/64 01/06/19 20:00 71 01/06/19 20:00 97.7 72 24 104/64 (77) 92 01/06/19 20:00 Nasal Cannula 2.0 Intake and Output 01/06/19 01/07/19 19:00 07:00 Intake Total 100 ml 240 ml Balance 100 ml 240 ml Intake Oral 100 ml 240 ml # Voids 1 1 Laboratory Tests Test 01/06/19 17:00 01/07/19 03:20 Troponin I 1.857 ng/mL (0.000-0.056) 1.894 ng/mL (0.000-0.056) White Blood Count 7.3 K/UL (4.8-10.8) Red Blood Count 5.04 M/UL (4.20-5.40) Hemoglobin 12.2 G/DL (12.0-16.0) Hematocrit 40.1 % (37.0-47.0) Mean Corpuscular Volume 80 FL (80-99) Mean Corpuscular Hemoglobin 24.1 PG (27.0-31.0) L Mean Corpuscular Hemoglobin Concent 30.3 G/DL (32.0-36.0) L Red Cell Distribution Width 16.2 % (11.6-14.8) H Platelet Count 252 K/UL (150-450) Mean Platelet Volume 7.8 FL (6.5-10.1) Neutrophils (%) (Auto) 72.4 % (45.0-75.0) Lymphocytes (%) (Auto) 16.1 % (20.0-45.0) L Monocytes (%) (Auto) 6.8 % (1.0-10.0) Eosinophils (%) (Auto) 0.8 % (0.0-3.0) Basophils (%) (Auto) 3.9 % (0.0-2.0) H Sodium Level 138 MMOL/L (136-145) Potassium Level 4.3 MMOL/L (3.5-5.1) Chloride Level 102 MMOL/L (98-107) Carbon Dioxide Level 22 MMOL/L (21-32) Anion Gap 14 mmol/L (5-15) Blood Urea Nitrogen 32 mg/dL (7-18) H Creatinine 3.1 MG/DL (0.55-1.30) H Estimat Glomerular Filtration Rate 18.3 mL/min (>60) Glucose Level 189 MG/DL (74-106) H Uric Acid 9.0 MG/DL (2.6-7.2) H Calcium Level 8.9 MG/DL (8.5-10.1) Phosphorus Level 4.4 MG/DL (2.5-4.9) Magnesium Level 2.0 MG/DL (1.8-2.4) Total Bilirubin 0.5 MG/DL (0.2-1.0) Gamma Glutamyl Transpeptidase 206 U/L (5-85) H Aspartate Amino Transf (AST/SGOT) 72 U/L (15-37) H Alanine Aminotransferase (ALT/SGPT) 48 U/L (12-78) Alkaline Phosphatase 163 U/L (46-116) H Total Creatine Kinase 176 U/L (26-308) Pro-B-Type Natriuretic Peptide 25961 pg/mL (0-125) H Total Protein 6.9 G/DL (6.4-8.2) Albumin 2.8 G/DL (3.4-5.0) L Globulin 4.1 g/dL Albumin/Globulin Ratio 0.7 (1.0-2.7) L Objective HEAD AND NECK: No JVD. LUNGS: Clear. CARDIOVASCULAR: Regular S1 and S2 with no gallop or murmur. ABDOMEN: Soft. EXTREMITIES: No pitting. Froilan Vallecillo MD Jan 07, 2019 16:33
--- NOTE | 2019-01-07 17:15 | NUR ---
NURSE NOTES: Informed Dr. Wisdom that many RNs attempted to insert an IV, but unsuccessful. Received an order for PICC placement. Carried out.
--- NOTE | 2019-01-07 17:35 | Nephrology Progress Note ---
Assessment/Plan Problem List: (1) ANGIE (acute kidney injury) (2) NSTEMI (non-ST elevated myocardial infarction) (3) Hyperglycemia Assessment Acute on Chronic Renal failure- Cr higher NSTEMI (non-ST elevated myocardial infarction), troponin higher Hyperglycemia , DM Cardiomegaly Atelectasis Noncompliance Plan johnson- refused DC lasix- fluid challenge- again SUSANNA kidney negative Optimize cardiac and pulmonary status avoid nephrotoxics keep BP and BS in check monitor renal parameters urine studies per orders Subjective ROS Limited/Unobtainable: No Constitutional: Reports: malaise Objective Objective Last 24 Hour Vital Signs Date Time Temp Pulse Resp B/P (MAP) Pulse Ox O2 Delivery O2 Flow Rate FiO2 01/07/19 14:00 124/70 01/07/19 12:00 Nasal Cannula 4.0 01/07/19 12:00 96.9 64 26 124/70 (88) 96 01/07/19 11:31 71 01/07/19 09:00 76 101/60 01/07/19 09:00 101/60 01/07/19 08:00 Nasal Cannula 2.0 01/07/19 08:00 98.4 76 24 101/60 (74) 91 01/07/19 07:36 62 01/07/19 06:00 100/52 01/07/19 04:00 Nasal Cannula 2.0 01/07/19 04:00 60 01/07/19 00:00 98.2 71 24 100/52 (68) 92 01/07/19 00:00 Nasal Cannula 2.0 01/07/19 00:00 69 01/06/19 22:00 104/64 01/06/19 20:10 72 104/64 01/06/19 20:00 71 01/06/19 20:00 97.7 72 24 104/64 (77) 92 01/06/19 20:00 Nasal Cannula 2.0 Intake and Output 01/06/19 01/07/19 19:00 07:00 Intake Total 100 ml 240 ml Balance 100 ml 240 ml Intake Oral 100 ml 240 ml # Voids 1 1 Laboratory Tests 01/07/19 03:20: White Blood Count 7.3, Red Blood Count 5.04, Hemoglobin 12.2, Hematocrit 40.1, Mean Corpuscular Volume 80, Mean Corpuscular Hemoglobin 24.1L, Mean Corpuscular Hemoglobin Concent 30.3L, Red Cell Distribution Width 16.2H, Platelet Count 252 , Mean Platelet Volume 7.8, Neutrophils (%) (Auto) 72.4, Lymphocytes (%) (Auto) 16.1L, Monocytes (%) (Auto) 6.8, Eosinophils (%) (Auto) 0.8, Basophils (%) (Auto ) 3.9H, Sodium Level 138, Potassium Level 4.3, Chloride Level 102, Carbon Dioxide Level 22, Anion Gap 14, Blood Urea Nitrogen 32H, Creatinine 3.1H, Estimat Glomerular Filtration Rate 18.3, Glucose Level 189H, Uric Acid 9.0H, Calcium Level 8.9, Phosphorus Level 4.4, Magnesium Level 2.0, Total Bilirubin 0.5, Gamma Glutamyl Transpeptidase 206H, Aspartate Amino Transf (AST/SGOT) 72H, Alanine Aminotransferase (ALT/SGPT) 48, Alkaline Phosphatase 163H, Total Creatine Kinase 176, Troponin I 1.894H, Pro-B-Type Natriuretic Peptide 66660J, Total Protein 6.9, Albumin 2.8L, Globulin 4.1, Albumin/Globulin Ratio 0.7L Height (Feet): 5 Height (Inches): 4.00 Weight (Pounds): 205 Donald Smallwood MD Jan 07, 2019 17:35
--- NOTE | 2019-01-07 18:00 | NUR ---
NURSE NOTES: Informed Dr. Smallwood that his order for Albumin and NS cannot be given because patient does not have IV access and PICC placement is ordered.
[2019-01-07] MEDS ORDERED: Heparin1,000 units/500ml Premix(Conc:2 units/ml) IV PRN (18:30)
[2019-01-07] MEDS ORDERED: Lidocaine 1% Plain 30 ml INJ PRN (18:30)
--- NOTE | 2019-01-07 18:30 | NUR ---
NURSE NOTES: Attempted to get consent for PICC line from the patient, patient agreed, but wants to sign the consent tomorrow. Will endorse to the next shift nurse.
--- NOTE | 2019-01-07 19:19 | NUR ---
HAND-OFF: Report given to BUSHRA Waggoner. Patient stable and aware that patient wants to sign PICC Placement consent tomorrow.
--- NOTE | 2019-01-07 19:30 | NUR ---
NURSE NOTES: Report received from BUSHRA Crump. Observed pt sleeping on the bed, arousable by voice, A/O x4. Denies any pain at this time. SR with logistics program manager. On NC 4L. No IV site noted. No acute distress noted at this time. Bed in the lowest position. Side rails up x2. Will continue to monitor.
--- NOTE | 2019-01-07 19:32 | Cardiology Report ---
APPROVED REPORT EXAM: Two-dimensional and M-mode echocardiogram with Doppler and color Doppler. INDICATION Coronary artery disease M-Mode DIMENSIONS IVSd1.3 (0.7-1.1cm)Left Atrium (MM)2.7 (1.6-4.0cm) LVDd4.1 (3.5-5.6cm)Aortic Root3.1 (2.0-3.7cm) PWd1.2 (0.7-1.1cm)Aortic Cusp Exc.1.6 (1.5-2.0cm) IVSs1.7 cm LVDs3.2 (2.5-4.0cm) PWs1.1 cm Global left ventricular hypokinesis . Mild left ventricular enlargement.Global left ventricular wall hypokinesia except the septal wall which is dyskinetic. Left ventricular ejection fraction estimated to be 35-40%. Mild left ventricular hypertrophy by 2-D. No evidence of pericardial effusion. All other cardiac chamber sizes are within normal limits. Focal aortic valve sclerosis with adequate cusp excursion. Moderately thickened mitral valve leaflets with normal excursion. Moderately mitral annulus and aortic root calcification. Pulmonic valve not well visualized. IVC at 1.9 cm without physiologic collapse suggestive of increased RA pressure. A color flow and spectral Doppler study was performed and revealed: No aortic insufficiency . Mitral diastolic velocities suggest reduced left ventricular relaxation c/w mild LV diastolic dysfunction (Grade I ) Mild mitral regurgitation. Moderate tricuspid regurgitation. Tricuspid systolic velocities suggests peak right ventricular systolic pressure of 59mmHg,consistent with moderate pulmonary hypertension .
[2019-01-07 20:00] VITALS: BP 110/70
[2019-01-07] MEDS ORDERED: Dyna-Hex 2% Top Sol 2oz TOPIC SCH (20:00)
[2019-01-07] MEDS: Atorvastatin 20mg tab ORAL SCH (21:14)
[2019-01-07] MEDS: Levemir Flexpen SUBQ SCH (21:15)
--- NOTE | 2019-01-07 22:29 | Pulmonology Progress Note ---
Assessment/Plan Problems: (1) Cardiomegaly (2) Atelectasis (3) Noncompliance (4) Hyperglycemia (5) NSTEMI (non-ST elevated myocardial infarction) (6) ANGIE (acute kidney injury) (7) Delusion Assessment/Plan ASSESSMENT: The patient is a 68-year-old female with history of obesity, possible GHANSHYAM, type 2 diabetes, noncompliant with medical care, presenting with generalized malaise and a [id number] CT with evidence of acute kidney injury. The patient is mildly hypoxemic, likely secondary to a component of decompensated heart failure. I will apply a duplex and D-dimer to rule out venous thromboembolism. PROBLEM LIST: 1. Non ST-elevation CT. 2. Mild hypoxemia. 3. Hyperglycemia. 4. Type 2 diabetes, noncompliant with medical treatment. 5. ANGIE versus CKD. 7. Obesity. 8. Snoring. TREATMENT PLAN: 1. Optimize pulmonary hygiene/mobilize as tolerated. 2. Titrate down FiO2 to keep saturations greater 90%. 3. Refused ABG 4. F/U VQ (given elevated D-dimer and negative duplex) once PICC placed 5. Monitor volumes and renal function. 5. F/U renal recs 6. Follow Cardiology recommendations, medical management of non-STEMI, will need ischemia evaluation at some point. 7. Consider discontinue Lovenox and switch to heparin given abnormal renal function. 8. The patient should have outpatient sleep study. 9. F/U psych recs 10. DVT prophylaxis. The patient is on low-molecular weight heparin, Subjective Allergies: Coded Allergies: No Known Allergies (Unverified , 01/04/19) Subjective AFVSS inc O2 needs Cr better VQ not done 12/19 no access Refused PICC Refused FC Refused multiple interventions C/O vague pain all over No SOB no cough no wheezing no FC Objective Last 24 Hour Vital Signs Date Time Temp Pulse Resp B/P (MAP) Pulse Ox O2 Delivery O2 Flow Rate FiO2 01/07/19 21:20 110/70 01/07/19 21:00 72 110/70 01/07/19 16:00 Nasal Cannula 4.0 01/07/19 16:00 98.2 73 24 119/73 (88) 96 01/07/19 15:27 73 01/07/19 14:00 124/70 01/07/19 12:00 Nasal Cannula 4.0 01/07/19 12:00 96.9 64 26 124/70 (88) 96 01/07/19 11:31 71 01/07/19 09:00 76 101/60 01/07/19 09:00 101/60 01/07/19 08:00 Nasal Cannula 2.0 01/07/19 08:00 98.4 76 24 101/60 (74) 91 01/07/19 07:36 62 01/07/19 06:00 100/52 01/07/19 04:00 Nasal Cannula 2.0 01/07/19 04:00 60 01/07/19 00:00 98.2 71 24 100/52 (68) 92 01/07/19 00:00 Nasal Cannula 2.0 01/07/19 00:00 69 Intake and Output 01/06/19 01/07/19 19:00 07:00 Intake Total 100 ml 240 ml Balance 100 ml 240 ml Intake Oral 100 ml 240 ml # Voids 1 1 General Appearance: WD/WN, no acute distress HEENT: normocephalic, atraumatic, anicteric, mucous membranes moist Respiratory/Chest: rhonchi Cardiovascular: normal peripheral pulses, normal rate, regular rhythm Abdomen: normal bowel sounds, soft, non tender, no organomegaly, non distended , no mass Extremities: no cyanosis, no clubbing, other - trace edema Laboratory Tests 01/07/19 03:20: White Blood Count 7.3, Red Blood Count 5.04, Hemoglobin 12.2, Hematocrit 40.1, Mean Corpuscular Volume 80, Mean Corpuscular Hemoglobin 24.1L, Mean Corpuscular Hemoglobin Concent 30.3L, Red Cell Distribution Width 16.2H, Platelet Count 252 , Mean Platelet Volume 7.8, Neutrophils (%) (Auto) 72.4, Lymphocytes (%) (Auto) 16.1L, Monocytes (%) (Auto) 6.8, Eosinophils (%) (Auto) 0.8, Basophils (%) (Auto ) 3.9H, Sodium Level 138, Potassium Level 4.3, Chloride Level 102, Carbon Dioxide Level 22, Anion Gap 14, Blood Urea Nitrogen 32H, Creatinine 3.1H, Estimat Glomerular Filtration Rate 18.3, Glucose Level 189H, Uric Acid 9.0H, Calcium Level 8.9, Phosphorus Level 4.4, Magnesium Level 2.0, Total Bilirubin 0.5, Gamma Glutamyl Transpeptidase 206H, Aspartate Amino Transf (AST/SGOT) 72H, Alanine Aminotransferase (ALT/SGPT) 48, Alkaline Phosphatase 163H, Total Creatine Kinase 176, Troponin I 1.894H, Pro-B-Type Natriuretic Peptide 52634C, Total Protein 6.9, Albumin 2.8L, Globulin 4.1, Albumin/Globulin Ratio 0.7L Current Medications Medications (Trade) Dose Ordered Sig/Nessa Route PRN Reason Start Time Stop Time Status Last Admin Dose Admin Acetaminophen (Tylenol) 650 mg Q6H PRN ORAL Mild Pain/Temp > 100.5 01/05/19 18:30 02/04/19 18:29 Aspirin (ASA) 81 mg DAILY ORAL 01/05/19 09:00 02/04/19 08:59 01/07/19 08:59 Atorvastatin Calcium (Lipitor) 40 mg BEDTIME ORAL 01/06/19 21:00 02/03/19 20:59 01/07/19 21:14 Chlorhexidine Gluconate (Kristi-Hex 2%) 1 applic DAILY@2000 TOPIC 01/07/19 20:00 02/06/19 19:59 Dextrose (Dextrose 50%) 25 ml Q30M PRN IV Hypoglycemia 01/04/19 17:00 02/03/19 16:59 Dextrose (Dextrose 50%) 50 ml Q30M PRN IV Hypoglycemia 01/04/19 17:00 02/03/19 16:59 Enoxaparin Sodium (Lovenox) 80 mg DAILY SUBQ 01/04/19 17:00 02/03/19 16:59 01/07/19 09:01 Heparin Sodium/ Dextrose (Heparin 1000 units/500ml Premix) 1,000 unit ONCE PRN IV picc line placement 01/07/19 18:30 01/09/19 18:29 Hydralazine HCl (Apresoline) 10 mg Q8HR ORAL 01/06/19 14:00 02/04/19 21:59 Insulin Aspart (NovoLOG) BEFORE MEALS AND HS SUBQ 01/04/19 21:00 02/03/19 20:59 01/07/19 21:15 Insulin Detemir (Levemir) 10 units BEDTIME SUBQ 01/06/19 21:00 02/03/19 20:59 01/07/19 21:15 Isosorbide Mononitrate (Imdur) 30 mg DAILY ORAL 01/06/19 09:00 02/05/19 08:59 Lidocaine HCl (Xylocaine 1% 30ml) 30 ml ONCE PRN INJ picc line placement 01/07/19 18:30 01/09/19 18:29 Metoprolol Tartrate (Lopressor) 25 mg EVERY 12 HOURS ORAL 01/06/19 21:00 02/03/19 20:59 Ondansetron HCl (Zofran) 4 mg Q6H PRN IVP Nausea & Vomiting 01/04/19 17:00 02/03/19 16:59 01/06/19 01:24 Pantoprazole (Protonix) 40 mg DAILY ORAL 01/05/19 10:15 02/04/19 10:14 01/07/19 08:59 Risperidone (RisperDAL) 2 mg QHS ORAL 01/07/19 21:00 02/06/19 20:59 01/07/19 21:13 Velasquez Wisdom MD Jan 07, 2019 22:29
[2019-01-08] VITALS: BP 101/65
--- NOTE | 2019-01-08 02:00 | NUR ---
NURSE NOTES: Pt asked to use bedside commode but cannot urinate. Pt said, "I want to go but nothing coming out." Bladder scan done and 14ml noted. Will continue to monitor.
--- NOTE | 2019-01-08 03:02 | NUR ---
NURSE NOTES: Pt refused to get blood drawn said she does not want to be poked. Will continue to monitor.
[2019-01-08 04:00] VITALS: BP_SYST 101; BP_SYST 115; BP_DIAS 57; BP_DIAS 65
[2019-01-08] MEDS: HydrALAZINE 10mg Tab ORAL SCH ×2 (06:35→14:04)
[2019-01-08] MEDS: NovoLOG Insulin Flexpen SUBQ SCH ×4 (06:54→21:00)
--- NOTE | 2019-01-08 07:08 | NUR ---
NURSE NOTES: Pt tried to urinate around 0700 and used bedpen but nothing came out. Will endorse to the morning nurse.
--- NOTE | 2019-01-08 07:09 | NUR ---
HAND-OFF: Report given to BUSHRA Kohler. No acute distress noted. Pt refused to sign the PICC placement.
--- NOTE | 2019-01-08 07:23 | NUR ---
NURSE NOTES: Received report from BUSHRA Hilario. Patient is resting in bed, in stable condition. No s/sx of SOB, breathing is even and unlabored. Denies any presence of pain or discomfort at this time. Bed is in lowest position, brakes engaged. Inquired from patient if they were going to sign PICC consent, per patient states, "No, I still want to think about it." Noted. Call light is kept within easy reach. Will continue to monitor patient.
[2019-01-08 08:00] VITALS: BP 105/59
[2019-01-08] MEDS: Metoprolol 25mg tab ORAL SCH ×2 (09:00→21:00)
[2019-01-08] MEDS: Imdur 30mg tab ORAL SCH (09:00)
[2019-01-08] MEDS: Aspirin Baby 81mg ORAL SCH (09:13)
[2019-01-08] MEDS: Enoxaparin 80mg Inj SUBQ SCH (09:15)
--- NOTE | 2019-01-08 10:14 | General Progress Note ---
Assessment/Plan Assessment/Plan #Uncontrolled DM type 2 without evidence of DKA #Obesity #Medical noncompliance -continue Levemir 10 units -lispro sliding scale -needs further education about compliance #NSTEMI #Systolic CHF -continue telemetry -cont ASA,Lipitor,metoprolol and Lovenox -TTE showing EF of 35%, continue Imdur and hydralazine -cardiology following #ANGIE -Cr 3.1 -hold Lasix -avoid hypotension -Nephrology following #Paranoia -psychiatry eval appreciated -started Risperidone at bedtime #Pseudohyponatremia -resolved VTE PPx Lovenox Full Code I spent 45 minutes on this patient's case, and 24 minutes was dedicated to counseling and/or care coordination. Subjective Date patient seen: Jan 08, 2019 Time patient seen: 07:45 Constitutional: Denies: chills, fever Cardiovascular: Denies: chest pain, edema Respiratory: Denies: cough, orthopnea Gastrointestinal/Abdominal: Denies: abdomen distended, abdominal pain Genitourinary: Denies: burning Allergies: Coded Allergies: No Known Allergies (Unverified , 01/04/19) Subjective Medicine followup for uncontrolled DM and possible NSTEMI + ANGIE No new complaints. Refused labs Objective Last 24 Hour Vital Signs Date Time Temp Pulse Resp B/P (MAP) Pulse Ox O2 Delivery O2 Flow Rate FiO2 01/08/19 08:00 Nasal Cannula 4.0 01/08/19 08:00 98.1 74 18 105/59 (74) 94 01/08/19 06:35 115/57 01/08/19 04:00 75 01/08/19 04:00 97.7 75 20 115/57 (76) 100 01/08/19 04:00 Nasal Cannula 4.0 01/08/19 00:00 Nasal Cannula 4.0 01/08/19 00:00 97.6 79 20 101/65 (77) 97 01/08/19 00:00 69 01/07/19 21:20 110/70 01/07/19 21:00 72 110/70 01/07/19 20:00 Nasal Cannula 4.0 01/07/19 20:00 75 01/07/19 20:00 98.1 72 20 110/70 (83) 98 01/07/19 16:00 Nasal Cannula 4.0 01/07/19 16:00 98.2 73 24 119/73 (88) 96 01/07/19 15:27 73 01/07/19 14:00 124/70 01/07/19 12:00 Nasal Cannula 4.0 01/07/19 12:00 96.9 64 26 124/70 (88) 96 01/07/19 11:31 71 Intake and Output 01/07/19 01/08/19 19:00 07:00 Intake Total 200 ml 240 ml Output Total 40 ml Balance 160 ml 240 ml Intake Oral 200 ml 240 ml Output Urine Total 40 ml # Voids 2 1 Height (Feet): 5 Height (Inches): 4.00 Weight (Pounds): 205 General Appearance: no apparent distress, alert Neck: normal alignment, supple Cardiovascular: normal rate, regular rhythm Respiratory/Chest: lungs clear, normal breath sounds, no respiratory distress Abdomen: non tender, soft, no organomegaly Fernando Bonner MD Jan 08, 2019 10:13
--- NOTE | 2019-01-08 10:21 | NUR ---
NURSE NOTES: Per Dr. Zhang, in emergency situations, patient's daughter "Star" will make medical decisions and that Dr. Smallwood has been made aware of this. Noted. Will continue to monitor patient.
[2019-01-08 10:46] LABS: ALANINE AMINOTRANSFERASE 295 U/L (12-78); ALBUMIN 2.8 G/DL (3.4-5.0); ALKALINE PHOSPHATASE 299 U/L (46-116); ASPARTATE AMINO TRANSFERASE 343 U/L (15-37); BILIRUBIN,DIRECT 0.7 MG/DL (0.0-0.3); PHOSPHORUS 4.5 MG/DL (2.5-4.9)
[2019-01-08 10:50] LABS: ANION GAP 10 mmol/L (5-15); BLOOD UREA NITROGEN 57 mg/dL (7-18); CALCIUM 8.9 MG/DL (8.5-10.1); CARBON DIOXIDE 25 MMOL/L (21-32); CHLORIDE 101 MMOL/L (98-107); CREATININE 5.7 MG/DL (0.55-1.30); POTASSIUM 4.3 MMOL/L (3.5-5.1); SODIUM 136 MMOL/L (136-145)
[2019-01-08 10:54] LABS: BASOPHILS % (AUTO) 1.4 % (0.0-2.0); HEMOGLOBIN 10.2 G/DL (12.0-16.0); LYMPHOCYTES % (AUTO) 16.2 % (20.0-45.0); MEAN CORPUSCULAR VOLUME 77 FL (80-99); MONOCYTES % (AUTO) 10.3 % (1.0-10.0); NEUTROPHILS % (AUTO) 71.1 % (45.0-75.0); PLATELET COUNT 205 K/UL (150-450); RED BLOOD COUNT 4.16 M/UL (4.20-5.40); RED CELL DISTRIBUTION WIDTH 15.3 % (11.6-14.8); WHITE BLOOD COUNT 8.5 K/UL (4.8-10.8)
[2019-01-08 12:00] VITALS: BP 122/80
--- NOTE | 2019-01-08 12:00 | NUR ---
NURSE NOTES: Dr. Smallwood at nurse station, ordered bladder scan. Scanned bladder and revealed 323 ml in bladder, Dr. Smallwood informed of bladder scan and ordered Morin catheter insertion. Informed patient the need for Morin catheter, patient refused. Explained to patient risks and possible negative outcomes of not having a Morin catheter inserted, patient continued to refuse. Respected patient rights. Informed Dr. Smallwood of patient's refusal of Morin catheter. Dr. Smallwood acknowledged and discontinued Morin catheter insertion. No other new orders given at this time. Will continue to monitor patient.
--- NOTE | 2019-01-08 12:00 | NUR ---
ST NOTE: RE-ATTEMPTED THE BEDSIDE SWALLOW EVAL PER PT, NO SWALLOWING DIFFICULTY AND REFUSED TO PARTICIPATE. D/C ST EVAL AT THIS TIME. RN, GAIL, NOTIFIED.
--- NOTE | 2019-01-08 13:17 | General Progress Note ---
Assessment/Plan Problem List: (1) Schizophrenia ICD Codes: F20.9 - Schizophrenia, unspecified SNOMED: 69341782 (2) MDD (major depressive disorder) ICD Codes: F32.9 - Major depressive disorder, single episode, unspecified SNOMED: 582131392 Status: stable Assessment/Plan risperdal 2mg po qhs the pt would benefit from ssris. the pt was educated about her medical condition the pt is illogical and lacks capacity to make decisions dw daughter Subjective Neurologic/Psychiatric: Reports: anxiety, depressed, emotional problems Allergies: Coded Allergies: No Known Allergies (Unverified , 01/04/19) Subjective the pt was irritable and anxious the pt believes that her sister was poising her the pt was refusing Morin placement the pts daughter was in the room the pt has long hx of paranoia but never got treatment the pt has poor insight. Objective Last 24 Hour Vital Signs Date Time Temp Pulse Resp B/P (MAP) Pulse Ox O2 Delivery O2 Flow Rate FiO2 01/08/19 12:00 Nasal Cannula 4.0 01/08/19 12:00 97.3 68 18 122/80 (94) 97 01/08/19 08:00 Nasal Cannula 4.0 01/08/19 08:00 98.1 74 18 105/59 (74) 94 01/08/19 08:00 75 01/08/19 06:35 115/57 01/08/19 04:00 75 01/08/19 04:00 97.7 75 20 115/57 (76) 100 01/08/19 04:00 Nasal Cannula 4.0 01/08/19 00:00 Nasal Cannula 4.0 01/08/19 00:00 97.6 79 20 101/65 (77) 97 01/08/19 00:00 69 01/07/19 21:20 110/70 01/07/19 21:00 72 110/70 01/07/19 20:00 Nasal Cannula 4.0 01/07/19 20:00 75 01/07/19 20:00 98.1 72 20 110/70 (83) 98 01/07/19 16:00 Nasal Cannula 4.0 01/07/19 16:00 98.2 73 24 119/73 (88) 96 01/07/19 15:27 73 01/07/19 14:00 124/70 Intake and Output 01/07/19 01/08/19 19:00 07:00 Intake Total 200 ml 240 ml Output Total 40 ml Balance 160 ml 240 ml Intake Oral 200 ml 240 ml Output Urine Total 40 ml # Voids 2 1 Laboratory Tests 01/08/19 10:15: White Blood Count 8.5, Red Blood Count 4.16L, Hemoglobin 10.2L, Hematocrit 32.0L , Mean Corpuscular Volume 77L, Mean Corpuscular Hemoglobin 24.5L, Mean Corpuscular Hemoglobin Concent 31.8L, Red Cell Distribution Width 15.3H, Platelet Count 205, Mean Platelet Volume 8.6, Neutrophils (%) (Auto) 71.1, Lymphocytes (%) (Auto) 16.2L, Monocytes (%) (Auto) 10.3H, Eosinophils (%) (Auto ) 1.0, Basophils (%) (Auto) 1.4, Sodium Level 136, Potassium Level 4.3, Chloride Level 101, Carbon Dioxide Level 25, Anion Gap 10, Blood Urea Nitrogen 57H, Creatinine 5.7#H, Estimat Glomerular Filtration Rate 9.0, Glucose Level 145H, Uric Acid 14.3H, Calcium Level 8.9, Phosphorus Level 4.5, Magnesium Level 2.0, Total Bilirubin 1.0, Direct Bilirubin 0.7H, Aspartate Amino Transf (AST/ SGOT) 343H, Alanine Aminotransferase (ALT/SGPT) 295H, Alkaline Phosphatase 299H , Troponin I 2.333H, Total Protein 6.6, Albumin 2.8L Height (Feet): 5 Height (Inches): 4.00 Weight (Pounds): 205 General Appearance: WD/WN, no apparent distress, alert Neurologic: oriented x 3, responsive, depressed affect Mikaela Zhang MD Jan 08, 2019 13:17
--- NOTE | 2019-01-08 13:20 | Diagnostic Imaging Report ---
Indication: Elevated d-dimer. Shortness of breath Technique: A ventilation/perfusion scan was performed. Ventilation was performed utilizing 40 mCi of technetium 99m DTPA. Multiple images performed in different projections. Perfusion could not be performed as there was poor IV access. Findings: Ventilation appears heterogeneous. No perfusion exam done. IMPRESSION: Nondiagnostic examination
--- NOTE | 2019-01-08 13:31 | NUR ---
RD ASSESSMENT & RECOMMENDATIONS SEE CARE ACTIVITY FOR COMPLETE ASSESSMENT DAILY ESTIMATED NEEDS: Needs based on Wound, DM, ANGIE 63kg adj 25-30 kcals/kg [id number] total kcals 1-1.25 g protein/kg 63-79 g total protein Fluid per MD NUTRITION DIAGNOSIS: Altered nutrition related lab values r/t diabetes and clinical status as evidenced by A1C 13.7, creat trending up now 5.7, w/ elev BNP (32594) CURRENT DIET:[facility] MED PO DIET RECOMMENDATIONS: CCHO LOW + LOW NA ADDITIONAL RECOMMENDATIONS: 1) Obtain an accurate CBW 2) Monitor lytes, need for renal diet 3) Skin integrity: add PANFILO BID + MVI + VIt C 250mg daily 4) Add Glucerna 1 tetra heather daily 5) Add snacks in b/w meals w/ current poor po intake
--- NOTE | 2019-01-08 14:00 | NUR ---
NURSE NOTES: Clarified with Dr. Wisdom regarding PICC insertion order, informed Dr. Wisdom that a peripheral line has been obtained. acknowledged and stated that PICC insertion order may be discontinued if NM VQ scan can use peripheral line. NM VQ scan may be used with peripheral line, discontinued PICC line insertion order. Noted.
--- NOTE | 2019-01-08 14:02 | NUR ---
NURSE NOTES: Nuclear med department inquired this nurse if okay to give contrast to patient in light of their current creatinine level of 5.7 today. This nurse contacted Dr. Wisdom of situation and Dr. Wisdom explained to this nurse "The reason we are getting VQ scan for patient is because of abnormal renal function. Yes, please go ahead." Understood. This nurse called nuclear med department and verified that VQ scan is to proceed as ordered. [facility] informed this nurse that a hvac technician will be paged to perform procedure. ETA 1630. Noted. Will continue to monitor patient.
--- NOTE | 2019-01-08 14:59 | Consultation ---
History of Present Illness General Date patient seen: Jan 08, 2019 Chief Complaint: Generalized Weakness Reason for Consultation: wound Present Illness HPI 68 year old female currently admitted for medical care and management. On admission noted to have wounds requiring care/management. Surgery called to evaluate and assist with care. Patient seen, chart reviewed, patient examined. Allergies: Coded Allergies: No Known Allergies (Unverified , 01/04/19) Medication History Scheduled Hydrochlorothiazide* (Hydrochlorothiazide*), Unknown Dose ORAL DAILY, (Reported) Metformin Hcl (Glucophage), Unknown Dose ORAL DAILY, (Reported) Miscellaneous Medications Glipizide (Glipizide), Unknown Dose PO, (Reported) Patient History Limited by: medical condition History Provided By: Medical Record, PMD Healthcare decision maker Marry King Resuscitation status Full Code Advanced Directive on File Past Medical/Surgical History Past Medical/Surgical History: (1) Cardiomegaly (2) Atelectasis (3) Noncompliance (4) Hyperglycemia (5) NSTEMI (non-ST elevated myocardial infarction) (6) ANGIE (acute kidney injury) (7) Delusion (8) Schizophrenia (9) MDD (major depressive disorder) Review of Systems All Other Systems: negative except mentioned in HPI Physical Exam General Appearance: no apparent distress Lines, tubes and drains: peripheral HEENT: mucous membranes moist Neck: normal inspection Respiratory/Chest: no respiratory distress Cardiovascular/Chest: normal rate Abdomen: soft, no organomegaly, no mass Extremities: normal inspection Skin Exam: warm/dry Neurologic: alert Last 24 Hour Vital Signs Date Time Temp Pulse Resp B/P (MAP) Pulse Ox O2 Delivery O2 Flow Rate FiO2 01/08/19 14:04 122/80 01/08/19 12:00 Nasal Cannula 4.0 01/08/19 12:00 97.3 68 18 122/80 (94) 97 01/08/19 08:00 Nasal Cannula 4.0 01/08/19 08:00 98.1 74 18 105/59 (74) 94 01/08/19 08:00 75 01/08/19 06:35 115/57 01/08/19 04:00 75 01/08/19 04:00 97.7 75 20 115/57 (76) 100 01/08/19 04:00 Nasal Cannula 4.0 01/08/19 00:00 Nasal Cannula 4.0 01/08/19 00:00 97.6 79 20 101/65 (77) 97 01/08/19 00:00 69 01/07/19 21:20 110/70 01/07/19 21:00 72 110/70 01/07/19 20:00 Nasal Cannula 4.0 01/07/19 20:00 75 01/07/19 20:00 98.1 72 20 110/70 (83) 98 01/07/19 16:00 Nasal Cannula 4.0 01/07/19 16:00 98.2 73 24 119/73 (88) 96 01/07/19 15:27 73 Intake and Output 01/07/19 01/08/19 19:00 07:00 Intake Total 200 ml 240 ml Output Total 40 ml Balance 160 ml 240 ml Intake Oral 200 ml 240 ml Output Urine Total 40 ml # Voids 2 1 Laboratory Tests Test 01/08/19 10:15 White Blood Count 8.5 K/UL (4.8-10.8) Red Blood Count 4.16 M/UL (4.20-5.40) L Hemoglobin 10.2 G/DL (12.0-16.0) L Hematocrit 32.0 % (37.0-47.0) L Mean Corpuscular Volume 77 FL (80-99) L Mean Corpuscular Hemoglobin 24.5 PG (27.0-31.0) L Mean Corpuscular Hemoglobin Concent 31.8 G/DL (32.0-36.0) L Red Cell Distribution Width 15.3 % (11.6-14.8) H Platelet Count 205 K/UL (150-450) Mean Platelet Volume 8.6 FL (6.5-10.1) Neutrophils (%) (Auto) 71.1 % (45.0-75.0) Lymphocytes (%) (Auto) 16.2 % (20.0-45.0) L Monocytes (%) (Auto) 10.3 % (1.0-10.0) H Eosinophils (%) (Auto) 1.0 % (0.0-3.0) Basophils (%) (Auto) 1.4 % (0.0-2.0) Sodium Level 136 MMOL/L (136-145) Potassium Level 4.3 MMOL/L (3.5-5.1) Chloride Level 101 MMOL/L (98-107) Carbon Dioxide Level 25 MMOL/L (21-32) Anion Gap 10 mmol/L (5-15) Blood Urea Nitrogen 57 mg/dL (7-18) H Creatinine 5.7 MG/DL (0.55-1.30) #H Estimat Glomerular Filtration Rate 9.0 mL/min (>60) Glucose Level 145 MG/DL (74-106) H Uric Acid 14.3 MG/DL (2.6-7.2) H Calcium Level 8.9 MG/DL (8.5-10.1) Phosphorus Level 4.5 MG/DL (2.5-4.9) Magnesium Level 2.0 MG/DL (1.8-2.4) Total Bilirubin 1.0 MG/DL (0.2-1.0) Direct Bilirubin 0.7 MG/DL (0.0-0.3) H Aspartate Amino Transf (AST/SGOT) 343 U/L (15-37) H Alanine Aminotransferase (ALT/SGPT) 295 U/L (12-78) H Alkaline Phosphatase 299 U/L (46-116) H Troponin I 2.333 ng/mL (0.000-0.056) Total Protein 6.6 G/DL (6.4-8.2) Albumin 2.8 G/DL (3.4-5.0) L Height (Feet): 5 Height (Inches): 4.00 Weight (Pounds): 205 Medications Current Medications Medications (Trade) Dose Ordered Sig/Nessa Route PRN Reason Start Time Stop Time Status Last Admin Dose Admin Acetaminophen (Tylenol) 650 mg Q6H PRN ORAL Mild Pain/Temp > 100.5 01/05/19 18:30 02/04/19 18:29 01/08/19 06:35 Aspirin (ASA) 81 mg DAILY ORAL 01/05/19 09:00 02/04/19 08:59 01/08/19 09:13 Atorvastatin Calcium (Lipitor) 40 mg BEDTIME ORAL 01/06/19 21:00 02/03/19 20:59 01/07/19 21:14 Chlorhexidine Gluconate (Kristi-Hex 2%) 1 applic DAILY@2000 TOPIC 01/07/19 20:00 02/06/19 19:59 Dextrose (Dextrose 50%) 25 ml Q30M PRN IV Hypoglycemia 01/04/19 17:00 02/03/19 16:59 Dextrose (Dextrose 50%) 50 ml Q30M PRN IV Hypoglycemia 01/04/19 17:00 02/03/19 16:59 Enoxaparin Sodium (Lovenox) 80 mg DAILY SUBQ 01/04/19 17:00 02/03/19 16:59 01/08/19 09:15 Heparin Sodium/ Dextrose (Heparin 1000 units/500ml Premix) 1,000 unit ONCE PRN IV picc line placement 01/07/19 18:30 01/09/19 18:29 Hydralazine HCl (Apresoline) 10 mg Q8HR ORAL 01/06/19 14:00 02/04/19 21:59 01/08/19 14:04 Insulin Aspart (NovoLOG) BEFORE MEALS AND HS SUBQ 01/04/19 21:00 02/03/19 20:59 01/08/19 06:54 Insulin Detemir (Levemir) 10 units BEDTIME SUBQ 01/06/19 21:00 02/03/19 20:59 01/07/19 21:15 Isosorbide Mononitrate (Imdur) 30 mg DAILY ORAL 01/06/19 09:00 02/05/19 08:59 Lidocaine HCl (Xylocaine 1% 30ml) 30 ml ONCE PRN INJ picc line placement 01/07/19 18:30 01/09/19 18:29 Metoprolol Tartrate (Lopressor) 25 mg EVERY 12 HOURS ORAL 01/06/19 21:00 02/03/19 20:59 Ondansetron HCl (Zofran) 4 mg Q6H PRN IVP Nausea & Vomiting 01/04/19 17:00 02/03/19 16:59 01/06/19 01:24 Pantoprazole (Protonix) 40 mg DAILY ORAL 01/05/19 10:15 02/04/19 10:14 01/08/19 09:13 Risperidone (RisperDAL) 2 mg QHS ORAL 01/07/19 21:00 02/06/19 20:59 01/07/19 21:13 Assessment/Plan Problem List: (1) Leg ulcer Assessment & Plan: Pt presents with #2 ulcers posterior /distal L tibia . Pt stated having wounds since last August and denied previously been seen by a Physician for wounds Pt unable to provide etiology of wounds. Proximal wound 100% necrotic ,malodorous without exudate(L)1.5cm x (W)1.7cm. Second wound inferior but in close proximity Base of wound with necrosis /slough and is malodorous .Small amt brown exudate noted .Periwound without fluctuance, induration or elevation in skin temp. Pt verbalized tenderness when area around wound palpated. Tx Plan: Apply Betadine swabs to both lower extremity ulcerated wounds daily. Cover with Optifoam drsg Daily and prn. ICD Codes: L97.909 - Non-pressure chronic ulcer of unspecified part of unspecified lower leg with unspecified severity SNOMED: [id number], [id number] Qualifiers: Qualified Codes: L97.929 - Non-pressure chronic ulcer of unspecified part of left lower leg with unspecified severity Radames Baeza Jan 08, 2019 14:59
[2019-01-08] MEDS ORDERED: Tamsulosin 0.4mg cap ORAL SCH (15:45)
--- NOTE | 2019-01-08 15:50 | Nephrology Progress Note ---
Assessment/Plan Problem List: (1) ANGIE (acute kidney injury) (2) NSTEMI (non-ST elevated myocardial infarction) (3) Hyperglycemia (4) Urinary outflow obstruction Assessment Acute on Chronic Renal failure- Cr higher PATIENT REFUSES JOHNSON FOR URINARY RETENTION NSTEMI (non-ST elevated myocardial infarction), troponin higher Hyperglycemia , DM Cardiomegaly Atelectasis Noncompliance Plan johnson- refused TRIAL FLOMAX discussed with PMD DC lasix- fluid challenge- again SUSANNA kidney negative Optimize cardiac and pulmonary status avoid nephrotoxics keep BP and BS in check monitor renal parameters urine studies per orders Objective Objective Last 24 Hour Vital Signs Date Time Temp Pulse Resp B/P (MAP) Pulse Ox O2 Delivery O2 Flow Rate FiO2 01/08/19 14:04 122/80 01/08/19 12:00 69 01/08/19 12:00 Nasal Cannula 4.0 01/08/19 12:00 97.3 68 18 122/80 (94) 97 01/08/19 08:00 Nasal Cannula 4.0 01/08/19 08:00 98.1 74 18 105/59 (74) 94 01/08/19 08:00 75 01/08/19 06:35 115/57 01/08/19 04:00 75 01/08/19 04:00 97.7 75 20 115/57 (76) 100 01/08/19 04:00 Nasal Cannula 4.0 01/08/19 00:00 Nasal Cannula 4.0 01/08/19 00:00 97.6 79 20 101/65 (77) 97 01/08/19 00:00 69 01/07/19 21:20 110/70 01/07/19 21:00 72 110/70 01/07/19 20:00 Nasal Cannula 4.0 01/07/19 20:00 75 01/07/19 20:00 98.1 72 20 110/70 (83) 98 01/07/19 16:00 Nasal Cannula 4.0 01/07/19 16:00 98.2 73 24 119/73 (88) 96 Intake and Output 01/07/19 01/08/19 19:00 07:00 Intake Total 200 ml 240 ml Output Total 40 ml Balance 160 ml 240 ml Intake Oral 200 ml 240 ml Output Urine Total 40 ml # Voids 2 1 Laboratory Tests 01/08/19 10:15: White Blood Count 8.5, Red Blood Count 4.16L, Hemoglobin 10.2L, Hematocrit 32.0L , Mean Corpuscular Volume 77L, Mean Corpuscular Hemoglobin 24.5L, Mean Corpuscular Hemoglobin Concent 31.8L, Red Cell Distribution Width 15.3H, Platelet Count 205, Mean Platelet Volume 8.6, Neutrophils (%) (Auto) 71.1, Lymphocytes (%) (Auto) 16.2L, Monocytes (%) (Auto) 10.3H, Eosinophils (%) (Auto ) 1.0, Basophils (%) (Auto) 1.4, Sodium Level 136, Potassium Level 4.3, Chloride Level 101, Carbon Dioxide Level 25, Anion Gap 10, Blood Urea Nitrogen 57H, Creatinine 5.7#H, Estimat Glomerular Filtration Rate 9.0, Glucose Level 145H, Uric Acid 14.3H, Calcium Level 8.9, Phosphorus Level 4.5, Magnesium Level 2.0, Total Bilirubin 1.0, Direct Bilirubin 0.7H, Aspartate Amino Transf (AST/ SGOT) 343H, Alanine Aminotransferase (ALT/SGPT) 295H, Alkaline Phosphatase 299H , Troponin I 2.333H, Total Protein 6.6, Albumin 2.8L Height (Feet): 5 Height (Inches): 4.00 Weight (Pounds): 205 Donald Smallwood MD Jan 08, 2019 15:50
[2019-01-08 16:00] VITALS: BP 132/91
--- NOTE | 2019-01-08 18:51 | Cardiac Electrophysiology PN ---
Assessment/Plan Assessment/Plan 1. Non-ST elevation myocardial infarction and troponin of 2.1. Levels are flat. Could be due to renal failure. Creatinine is 3.7. Denies any chest pain [place] [address] ECG lateral T wave inversion. 2. CHF with EF 35%. On Lopressor, Hydralzine and isordil 3. HTN On CHF meds 4. Renal failure. Creatinine 5.7. Off Lasix and Aldactone 5. Uncontrolled diabetes. Glucose 436. 6. Hyponatremia. 7. SOB. VQ scan nondiagnostic DW RN Subjective Subjective No events. No CP or SOB.Had VQ scan today Objective Last 24 Hour Vital Signs Date Time Temp Pulse Resp B/P (MAP) Pulse Ox O2 Delivery O2 Flow Rate FiO2 01/08/19 16:00 68 01/08/19 16:00 Nasal Cannula 4.0 01/08/19 14:04 122/80 01/08/19 12:00 69 01/08/19 12:00 Nasal Cannula 4.0 01/08/19 12:00 97.3 68 18 122/80 (94) 97 01/08/19 08:00 Nasal Cannula 4.0 01/08/19 08:00 98.1 74 18 105/59 (74) 94 01/08/19 08:00 75 01/08/19 06:35 115/57 01/08/19 04:00 75 01/08/19 04:00 97.7 75 20 115/57 (76) 100 01/08/19 04:00 Nasal Cannula 4.0 01/08/19 00:00 Nasal Cannula 4.0 01/08/19 00:00 97.6 79 20 101/65 (77) 97 01/08/19 00:00 69 01/07/19 21:20 110/70 01/07/19 21:00 72 110/70 01/07/19 20:00 Nasal Cannula 4.0 01/07/19 20:00 75 01/07/19 20:00 98.1 72 20 110/70 (83) 98 Intake and Output 01/07/19 01/08/19 19:00 07:00 Intake Total 200 ml 240 ml Output Total 40 ml Balance 160 ml 240 ml Intake Oral 200 ml 240 ml Output Urine Total 40 ml # Voids 2 1 Laboratory Tests Test 01/08/19 10:15 White Blood Count 8.5 K/UL (4.8-10.8) Red Blood Count 4.16 M/UL (4.20-5.40) L Hemoglobin 10.2 G/DL (12.0-16.0) L Hematocrit 32.0 % (37.0-47.0) L Mean Corpuscular Volume 77 FL (80-99) L Mean Corpuscular Hemoglobin 24.5 PG (27.0-31.0) L Mean Corpuscular Hemoglobin Concent 31.8 G/DL (32.0-36.0) L Red Cell Distribution Width 15.3 % (11.6-14.8) H Platelet Count 205 K/UL (150-450) Mean Platelet Volume 8.6 FL (6.5-10.1) Neutrophils (%) (Auto) 71.1 % (45.0-75.0) Lymphocytes (%) (Auto) 16.2 % (20.0-45.0) L Monocytes (%) (Auto) 10.3 % (1.0-10.0) H Eosinophils (%) (Auto) 1.0 % (0.0-3.0) Basophils (%) (Auto) 1.4 % (0.0-2.0) Sodium Level 136 MMOL/L (136-145) Potassium Level 4.3 MMOL/L (3.5-5.1) Chloride Level 101 MMOL/L (98-107) Carbon Dioxide Level 25 MMOL/L (21-32) Anion Gap 10 mmol/L (5-15) Blood Urea Nitrogen 57 mg/dL (7-18) H Creatinine 5.7 MG/DL (0.55-1.30) #H Estimat Glomerular Filtration Rate 9.0 mL/min (>60) Glucose Level 145 MG/DL (74-106) H Uric Acid 14.3 MG/DL (2.6-7.2) H Calcium Level 8.9 MG/DL (8.5-10.1) Phosphorus Level 4.5 MG/DL (2.5-4.9) Magnesium Level 2.0 MG/DL (1.8-2.4) Total Bilirubin 1.0 MG/DL (0.2-1.0) Direct Bilirubin 0.7 MG/DL (0.0-0.3) H Aspartate Amino Transf (AST/SGOT) 343 U/L (15-37) H Alanine Aminotransferase (ALT/SGPT) 295 U/L (12-78) H Alkaline Phosphatase 299 U/L (46-116) H Troponin I 2.333 ng/mL (0.000-0.056) Total Protein 6.6 G/DL (6.4-8.2) Albumin 2.8 G/DL (3.4-5.0) L Objective HEAD AND NECK: No JVD. LUNGS: Clear. CARDIOVASCULAR: Regular S1 and S2 with no gallop or murmur. ABDOMEN: Soft. EXTREMITIES: No pitting. Froilan Vallecillo MD Jan 08, 2019 18:51
--- NOTE | 2019-01-08 19:29 | NUR ---
HAND-OFF: Report given to BUSHRA Hilario.
--- NOTE | 2019-01-08 19:30 | NUR ---
NURSE NOTES: Report received from BUSHRA Kohler. Observed pt sleeping on the bed. No signs of pain noted. A/O x4. SR with sales clerk food. On NC 2L with no signs of sob. IV on R FA 20G, intact and patent. Bed in the lowest position. Side rails up x2. Will continue to monitor.
[2019-01-08 20:00] VITALS: BP 130/77
[2019-01-08] MEDS ORDERED: NS 500ML ONE (20:18)
[2019-01-08] MEDS ORDERED: Tubing IV Secondary IV ONE (20:18)
[2019-01-08] MEDS ORDERED: NS 275ml ONE (20:18)
[2019-01-08] MEDS: Tamsulosin 0.4mg cap ORAL SCH (21:00)
[2019-01-08] MEDS: Atorvastatin 20mg tab ORAL SCH (21:00)
[2019-01-08] MEDS: Levemir Flexpen SUBQ SCH (21:00)
--- NOTE | 2019-01-08 21:12 | NUR ---
NURSE NOTES: Pt refused all 2100 medications, explained benefits and risks and still refused. Will continue to monitor.
--- NOTE | 2019-01-08 23:33 | NUR ---
NURSE NOTES: Observed pt sleeping on the bed. IV flushed, intact and patent. VS within normal range. No signs of SOB. Pt took off NC and said, "It is irritating my nose. I do not want to have it." No signs of SOB, saturating at 97% on room air. Will continue to monitor.
[2019-01-09] VITALS: BP 123/70
--- NOTE | 2019-01-09 02:00 | NUR ---
NURSE NOTES: Pt used bedside commode and urine output of 100cc noted.
[2019-01-09 04:00] VITALS: BP 130/77
--- NOTE | 2019-01-09 06:25 | NUR ---
NURSE NOTES: Pt refused to check blood sugar, explained risks and benefits and still refused, said, "Leave me alone." Will continue to monitor. No signs of acute distress noted.
[2019-01-09] MEDS: NovoLOG Insulin Flexpen SUBQ SCH ×5 (06:30→21:02)
--- NOTE | 2019-01-09 07:25 | NUR ---
HAND-OFF: Report given to BUSHRA Landa. Observed pt sleeping on the bed.
--- NOTE | 2019-01-09 07:26 | NUR ---
NURSE NOTES: Received patient from BUSHRA Waggoner. patient VS stable at this time. patient sleeping at this time. Patient refused 0600 blood sugar check. Patient alert and oriented when awake. patient showing sinus rhythm on the monitor at this time. patient is on 2L NC at this time. Patient removes NC but her saturation is stable at this time. Patient is on [facility] medium diet. Patient was coughing with water. She has an order for swallow evaluation. Will follow up with speech therapist. Patient has an order for johnson insertion due to urine retention. Patient refused johnson. Patient uses bedside commode. Patient needs assistance when ambulating to bedside commode. Bed alarm on and call light in reach at this time. Patient has bilateral leg wounds that are covered with optifoam at this time. Patient has right FA 20G PIV that is patent and saline locked at this time. Patient has an order for PICC line but she has refused it. Patient had a VQ scan yesterday but the result is inconclusive due to poor IV access. Patient has positive troponin of 2.[address] Vallecillo is aware. Patient bed in low position with bed alarm on and call light in reach at this time.
[2019-01-09 08:00] VITALS: BP 125/81
[2019-01-09] MEDS: Metoprolol 25mg tab ORAL SCH ×2 (09:28→20:59)
[2019-01-09] MEDS: Tamsulosin 0.4mg cap ORAL SCH ×2 (09:28→20:58)
[2019-01-09] MEDS: Imdur 30mg tab ORAL SCH (09:29)
[2019-01-09] MEDS: Aspirin Baby 81mg ORAL SCH (09:30)
[2019-01-09] MEDS: Enoxaparin 80mg Inj SUBQ SCH (09:31)
[2019-01-09 10:35] LABS: BASOPHILS % (AUTO) 2.4 % (0.0-2.0); EOSINOPHILS % (AUTO) 1.9 % (0.0-3.0); HEMATOCRIT 34.5 % (37.0-47.0); HEMOGLOBIN 10.8 G/DL (12.0-16.0); LYMPHOCYTES % (AUTO) 18.6 % (20.0-45.0); MEAN CORPUSCULAR VOLUME 76 FL (80-99); MONOCYTES % (AUTO) 12.6 % (1.0-10.0); NEUTROPHILS % (AUTO) 64.6 % (45.0-75.0); PLATELET COUNT 216 K/UL (150-450); RED BLOOD COUNT 4.51 M/UL (4.20-5.40); WHITE BLOOD COUNT 5.3 K/UL (4.8-10.8)
[2019-01-09 10:44] LABS: ANION GAP 13 mmol/L (5-15); BLOOD UREA NITROGEN 53 mg/dL (7-18); CALCIUM 8.8 MG/DL (8.5-10.1); CARBON DIOXIDE 22 MMOL/L (21-32); CHLORIDE 101 MMOL/L (98-107); POTASSIUM 4.4 MMOL/L (3.5-5.1); SODIUM 136 MMOL/L (136-145)
--- NOTE | 2019-01-09 11:58 | NUR ---
CASE MANAGEMENT: REVIEW SI: NSTEMI . CHF T 97.9 HR 66 RR 20 BP 130/77 SAT 97% NC/4L H/H 10.8/34.5 BUN 53 CR 5.0 IS: LOVENOX SQ QD ASA PO QD PROTONIX PO QD LOPRESSOR PO Q12HR LEVEMIR 10UNITS SQ QHS STEP DOWN UNIT STATUS DCP: PATIENT IS FROM HOME
[2019-01-09 12:00] VITALS: BP 113/78
--- NOTE | 2019-01-09 12:04 | Pulmonology Progress Note ---
Assessment/Plan Problems: (1) Cardiomegaly (2) Atelectasis (3) Noncompliance (4) Hyperglycemia (5) NSTEMI (non-ST elevated myocardial infarction) (6) ANGIE (acute kidney injury) (7) Delusion Assessment/Plan ASSESSMENT: The patient is a 68-year-old female with history of obesity, possible GHANSHYAM, type 2 diabetes, noncompliant with medical care, presenting with generalized malaise and a mlg-[id number] NH with evidence of acute kidney injury. The patient is mildly hypoxemic, likely secondary to a component of decompensated heart failure. I will apply a duplex and D-dimer to rule out venous thromboembolism. PROBLEM LIST: 1. Non ST-elevation NH. 2. Mild hypoxemia. 3. Hyperglycemia. 4. Type 2 diabetes, noncompliant with medical treatment. 5. ANGIE versus CKD. 7. Obesity. 8. Snoring. TREATMENT PLAN: 1. Optimize pulmonary hygiene/mobilize as tolerated. 2. Titrate down FiO2 to keep saturations greater 90%. 3. Refused ABG 4. VQ non-diagnostic 5. Monitor volumes and renal function. 5. F/U renal recs 6. Follow Cardiology recommendations, medical management of non-STEMI, will need ischemia evaluation at some point. 7. Consider discontinue Lovenox and switch to heparin given abnormal renal function. 8. The patient should have outpatient sleep study. 9. F/U psych recs 10. DVT prophylaxis. The patient is on low-molecular weight heparin, Subjective Allergies: Coded Allergies: No Known Allergies (Unverified , 01/04/19) Subjective AFVSS O2 needs stable Cr 5 VQ finally done but non-diagnostic due to issues with access Refused PICC Refused FC Refused multiple interventions Still C/O vague pain all over No SOB no cough no wheezing no FC Objective Last 24 Hour Vital Signs Date Time Temp Pulse Resp B/P (MAP) Pulse Ox O2 Delivery O2 Flow Rate FiO2 01/09/19 09:29 125/81 01/09/19 09:28 72 125/81 01/09/19 08:00 Nasal Cannula 4.0 01/09/19 08:00 71 01/09/19 04:00 72 01/09/19 04:00 97.9 66 20 130/77 (94) 97 01/09/19 04:00 Nasal Cannula 4.0 01/09/19 00:00 76 2/23/19 00:00 97.8 77 20 123/70 (87) 97 01/09/19 00:00 Nasal Cannula 4.0 01/08/19 21:00 66 130/77 01/08/19 20:00 97.9 66 20 130/77 (94) 97 01/08/19 20:00 69 01/08/19 20:00 Nasal Cannula 4.0 01/08/19 16:00 68 01/08/19 16:00 Nasal Cannula 4.0 01/08/19 16:00 97.0 67 18 132/91 (105) 97 01/08/19 14:04 122/80 Intake and Output 01/08/19 01/09/19 18:59 06:59 Intake Total 240 ml Output Total 100 ml Balance 140 ml Intake Oral 240 ml Output Urine Total 100 ml # Voids 1 1 General Appearance: WD/WN, no acute distress HEENT: normocephalic, atraumatic, anicteric, mucous membranes moist Respiratory/Chest: crackles/rales Cardiovascular: normal peripheral pulses, normal rate, regular rhythm Abdomen: normal bowel sounds, soft, non tender, no organomegaly, non distended , no mass Extremities: no cyanosis, no clubbing, other - trace edema Laboratory Tests 01/09/19 10:10: White Blood Count 5.3, Red Blood Count 4.51, Hemoglobin 10.8L, Hematocrit 34.5L , Mean Corpuscular Volume 76L, Mean Corpuscular Hemoglobin 24.0L, Mean Corpuscular Hemoglobin Concent 31.4L, Red Cell Distribution Width 15.0H, Platelet Count 216, Mean Platelet Volume 7.3, Neutrophils (%) (Auto) 64.6, Lymphocytes (%) (Auto) 18.6L, Monocytes (%) (Auto) 12.6H, Eosinophils (%) (Auto ) 1.9, Basophils (%) (Auto) 2.4H, Sodium Level 136, Potassium Level 4.4, Chloride Level 101, Carbon Dioxide Level 22, Anion Gap 13, Blood Urea Nitrogen 53H, Creatinine 5.0H, Estimat Glomerular Filtration Rate 10.5, Glucose Level 136H, Calcium Level 8.8 Current Medications Medications (Trade) Dose Ordered Sig/Nessa Route PRN Reason Start Time Stop Time Status Last Admin Dose Admin Acetaminophen (Tylenol) 650 mg Q6H PRN ORAL Mild Pain/Temp > 100.5 01/05/19 18:30 02/04/19 18:29 01/08/19 06:35 Aspirin (ASA) 81 mg DAILY ORAL 01/05/19 09:00 02/04/19 08:59 01/09/19 09:30 Atorvastatin Calcium (Lipitor) 40 mg BEDTIME ORAL 01/06/19 21:00 02/03/19 20:59 01/07/19 21:14 Dextrose (Dextrose 50%) 25 ml Q30M PRN IV Hypoglycemia 01/04/19 17:00 02/03/19 16:59 Dextrose (Dextrose 50%) 50 ml Q30M PRN IV Hypoglycemia 01/04/19 17:00 02/03/19 16:59 Enoxaparin Sodium (Lovenox) 80 mg DAILY SUBQ 01/04/19 17:00 02/03/19 16:59 01/09/19 09:31 Insulin Aspart (NovoLOG) BEFORE MEALS AND HS SUBQ 01/04/19 21:00 02/03/19 20:59 01/08/19 06:54 Insulin Detemir (Levemir) 10 units BEDTIME SUBQ 01/06/19 21:00 02/03/19 20:59 01/07/19 21:15 Isosorbide Mononitrate (Imdur) 30 mg DAILY ORAL 01/06/19 09:00 02/05/19 08:59 01/09/19 09:29 Metoprolol Tartrate (Lopressor) 25 mg EVERY 12 HOURS ORAL 01/06/19 21:00 02/03/19 20:59 01/09/19 09:28 Ondansetron HCl (Zofran) 4 mg Q6H PRN IVP Nausea & Vomiting 01/04/19 17:00 02/03/19 16:59 01/06/19 01:24 Pantoprazole (Protonix) 40 mg DAILY ORAL 01/05/19 10:15 02/04/19 10:14 01/09/19 09:29 Risperidone (RisperDAL) 2 mg QHS ORAL 01/07/19 21:00 02/06/19 20:59 01/07/19 21:13 Tamsulosin HCl (Flomax) 0.4 mg Q12HR ORAL 01/08/19 21:00 02/07/19 20:59 01/09/19 09:28 Velasquez Wisdom MD Jan 09, 2019 12:04
--- NOTE | 2019-01-09 13:56 | Surgery Progress Note ---
Surgery Progress Note Subjective Symptoms: other Objective Last 24 Hour Vital Signs Date Time Temp Pulse Resp B/P (MAP) Pulse Ox O2 Delivery O2 Flow Rate FiO2 01/09/19 09:29 125/81 01/09/19 09:28 72 125/81 01/09/19 08:00 Nasal Cannula 4.0 01/09/19 08:00 71 01/09/19 04:00 72 01/09/19 04:00 97.9 66 20 130/77 (94) 97 01/09/19 04:00 Nasal Cannula 4.0 01/09/19 00:00 76 01/09/19 00:00 97.8 77 20 123/70 (87) 97 01/09/19 00:00 Nasal Cannula 4.0 01/08/19 21:00 66 130/77 01/08/19 20:00 97.9 66 20 130/77 (94) 97 01/08/19 20:00 69 01/08/19 20:00 Nasal Cannula 4.0 01/08/19 16:00 68 01/08/19 16:00 Nasal Cannula 4.0 01/08/19 16:00 97.0 67 18 132/91 (105) 97 01/08/19 14:04 122/80 I&O Intake and Output 01/08/19 01/09/19 19:00 07:00 Intake Total 240 ml Output Total 100 ml Balance 140 ml Intake Oral 240 ml Output Urine Total 100 ml # Voids 1 1 Dressing: other Wound: other Drains: other Cardiovascular: other Respiratory: other Abdomen: other Extremities: other Laboratory Tests Test 01/09/19 10:10 White Blood Count 5.3 K/UL (4.8-10.8) Red Blood Count 4.51 M/UL (4.20-5.40) Hemoglobin 10.8 G/DL (12.0-16.0) L Hematocrit 34.5 % (37.0-47.0) L Mean Corpuscular Volume 76 FL (80-99) L Mean Corpuscular Hemoglobin 24.0 PG (27.0-31.0) L Mean Corpuscular Hemoglobin Concent 31.4 G/DL (32.0-36.0) L Red Cell Distribution Width 15.0 % (11.6-14.8) H Platelet Count 216 K/UL (150-450) Mean Platelet Volume 7.3 FL (6.5-10.1) Neutrophils (%) (Auto) 64.6 % (45.0-75.0) Lymphocytes (%) (Auto) 18.6 % (20.0-45.0) L Monocytes (%) (Auto) 12.6 % (1.0-10.0) H Eosinophils (%) (Auto) 1.9 % (0.0-3.0) Basophils (%) (Auto) 2.4 % (0.0-2.0) H Sodium Level 136 MMOL/L (136-145) Potassium Level 4.4 MMOL/L (3.5-5.1) Chloride Level 101 MMOL/L (98-107) Carbon Dioxide Level 22 MMOL/L (21-32) Anion Gap 13 mmol/L (5-15) Blood Urea Nitrogen 53 mg/dL (7-18) H Creatinine 5.0 MG/DL (0.55-1.30) H Estimat Glomerular Filtration Rate 10.5 mL/min (>60) Glucose Level 136 MG/DL (74-106) H Calcium Level 8.8 MG/DL (8.5-10.1) Plan Problems: (1) Leg ulcer Assessment & Plan: Pt presents with #2 ulcers posterior /distal L tibia . Pt stated having wounds since last August and denied previously been seen by a Physician for wounds Pt unable to provide etiology of wounds. Proximal wound 100% necrotic ,malodorous without exudate(L)1.5cm x (W)1.7cm. Second wound inferior but in close proximity Base of wound with necrosis /slough and is malodorous .Small amt brown exudate noted .Periwound without fluctuance, induration or elevation in skin temp. Pt verbalized tenderness when area around wound palpated. Tx Plan: Apply Betadine swabs to both lower extremity ulcerated wounds daily. Cover with Optifoam drsg Daily and prn. Radames Baeza Jan 09, 2019 13:56
--- NOTE | 2019-01-09 14:05 | Cardiac Electrophysiology PN ---
Assessment/Plan Assessment/Plan 1. Non-ST elevation myocardial infarction and troponin of 2.1. Levels are flat. Could be due to renal failure. Creatinine is 5 Denies any chest pain [place] [address] ECG lateral T wave inversion. 2. CHF with EF 35%. On Lopressor, Hydralazine and Isordil Ischemia evaluation before DC 3. HTN On CHF meds 4. Renal failure. Creatinine 5 Off Lasix and Aldactone 5. Uncontrolled diabetes with Glucose >400 6. Hyponatremia. 7. SOB. VQ scan nondiagnostic DW RN Subjective Subjective No CP or SOB. Had dizzy spell earlier.Had VQ scan yesterday Objective Last 24 Hour Vital Signs Date Time Temp Pulse Resp B/P (MAP) Pulse Ox O2 Delivery O2 Flow Rate FiO2 01/09/19 09:29 125/81 01/09/19 09:28 72 125/81 01/09/19 08:00 Nasal Cannula 4.0 01/09/19 08:00 71 01/09/19 04:00 72 01/09/19 04:00 97.9 66 20 130/77 (94) 97 01/09/19 04:00 Nasal Cannula 4.0 01/09/19 00:00 76 01/09/19 00:00 97.8 77 20 123/70 (87) 97 01/09/19 00:00 Nasal Cannula 4.0 01/08/19 21:00 66 130/77 01/08/19 20:00 97.9 66 20 130/77 (94) 97 01/08/19 20:00 69 01/08/19 20:00 Nasal Cannula 4.0 01/08/19 16:00 68 01/08/19 16:00 Nasal Cannula 4.0 01/08/19 16:00 97.0 67 18 132/91 (105) 97 01/08/19 14:04 122/80 Intake and Output 01/08/19 01/09/19 19:00 07:00 Intake Total 240 ml Output Total 100 ml Balance 140 ml Intake Oral 240 ml Output Urine Total 100 ml # Voids 1 1 Laboratory Tests Test 01/09/19 10:10 White Blood Count 5.3 K/UL (4.8-10.8) Red Blood Count 4.51 M/UL (4.20-5.40) Hemoglobin 10.8 G/DL (12.0-16.0) L Hematocrit 34.5 % (37.0-47.0) L Mean Corpuscular Volume 76 FL (80-99) L Mean Corpuscular Hemoglobin 24.0 PG (27.0-31.0) L Mean Corpuscular Hemoglobin Concent 31.4 G/DL (32.0-36.0) L Red Cell Distribution Width 15.0 % (11.6-14.8) H Platelet Count 216 K/UL (150-450) Mean Platelet Volume 7.3 FL (6.5-10.1) Neutrophils (%) (Auto) 64.6 % (45.0-75.0) Lymphocytes (%) (Auto) 18.6 % (20.0-45.0) L Monocytes (%) (Auto) 12.6 % (1.0-10.0) H Eosinophils (%) (Auto) 1.9 % (0.0-3.0) Basophils (%) (Auto) 2.4 % (0.0-2.0) H Sodium Level 136 MMOL/L (136-145) Potassium Level 4.4 MMOL/L (3.5-5.1) Chloride Level 101 MMOL/L (98-107) Carbon Dioxide Level 22 MMOL/L (21-32) Anion Gap 13 mmol/L (5-15) Blood Urea Nitrogen 53 mg/dL (7-18) H Creatinine 5.0 MG/DL (0.55-1.30) H Estimat Glomerular Filtration Rate 10.5 mL/min (>60) Glucose Level 136 MG/DL (74-106) H Calcium Level 8.8 MG/DL (8.5-10.1) Objective HEAD AND NECK: No JVD. LUNGS: Clear. CARDIOVASCULAR: Regular S1 and S2 with no gallop or murmur. ABDOMEN: Soft. EXTREMITIES: No edema Froilan Vallecillo MD Jan 09, 2019 14:05
--- NOTE | 2019-01-09 15:07 | Nephrology Progress Note ---
Assessment/Plan Problem List: (1) ANGIE (acute kidney injury) (2) NSTEMI (non-ST elevated myocardial infarction) (3) Hyperglycemia (4) Urinary outflow obstruction Assessment Acute on Chronic Renal failure- Cr higher PATIENT REFUSES JOHNSON FOR URINARY RETENTION NSTEMI (non-ST elevated myocardial infarction), troponin higher Hyperglycemia , DM Cardiomegaly Atelectasis Noncompliance Plan discussed with daughter johnson- refused and continues to do so TRIAL FLOMAX discussed with PMD DC lasix- fluid challenge- again SUSANNA kidney negative Optimize cardiac and pulmonary status avoid nephrotoxics keep BP and BS in check monitor renal parameters urine studies per orders Subjective ROS Limited/Unobtainable: No Constitutional: Reports: malaise Objective Objective Last 24 Hour Vital Signs Date Time Temp Pulse Resp B/P (MAP) Pulse Ox O2 Delivery O2 Flow Rate FiO2 01/09/19 09:29 125/81 01/09/19 09:28 72 125/81 01/09/19 08:00 Nasal Cannula 4.0 01/09/19 08:00 71 01/09/19 04:00 72 01/09/19 04:00 97.9 66 20 130/77 (94) 97 01/09/19 04:00 Nasal Cannula 4.0 01/09/19 00:00 76 01/09/19 00:00 97.8 77 20 123/70 (87) 97 01/09/19 00:00 Nasal Cannula 4.0 01/08/19 21:00 66 130/77 01/08/19 20:00 97.9 66 20 130/77 (94) 97 01/08/19 20:00 69 01/08/19 20:00 Nasal Cannula 4.0 01/08/19 16:00 68 01/08/19 16:00 Nasal Cannula 4.0 01/08/19 16:00 97.0 67 18 132/91 (105) 97 Intake and Output 01/08/19 01/09/19 19:00 07:00 Intake Total 240 ml Output Total 100 ml Balance 140 ml Intake Oral 240 ml Output Urine Total 100 ml # Voids 1 1 Laboratory Tests 01/09/19 10:10: White Blood Count 5.3, Red Blood Count 4.51, Hemoglobin 10.8L, Hematocrit 34.5L , Mean Corpuscular Volume 76L, Mean Corpuscular Hemoglobin 24.0L, Mean Corpuscular Hemoglobin Concent 31.4L, Red Cell Distribution Width 15.0H, Platelet Count 216, Mean Platelet Volume 7.3, Neutrophils (%) (Auto) 64.6, Lymphocytes (%) (Auto) 18.6L, Monocytes (%) (Auto) 12.6H, Eosinophils (%) (Auto ) 1.9, Basophils (%) (Auto) 2.4H, Sodium Level 136, Potassium Level 4.4, Chloride Level 101, Carbon Dioxide Level 22, Anion Gap 13, Blood Urea Nitrogen 53H, Creatinine 5.0H, Estimat Glomerular Filtration Rate 10.5, Glucose Level 136H, Calcium Level 8.8 Height (Feet): 5 Height (Inches): 4.00 Weight (Pounds): 205 Cardiovascular: normal rate Respiratory/Chest: decreased breath sounds Abdomen: distended Donald Smallwood MD Jan 09, 2019 15:07
--- NOTE | 2019-01-09 15:11 | General Progress Note ---
Assessment/Plan Assessment/Plan #Uncontrolled DM type 2 without evidence of DKA #Obesity #Medical noncompliance -controlled -continue Levemir 10 units -lispro sliding scale -needs further education about compliance #NSTEMI #Systolic CHF -continue telemetry -cont ASA,Lipitor,metoprolol and Lovenox -TTE showing EF of 35%, continue Imdur and hydralazine -cardiology following #ANGIE -creatinine stable ~5 -hold Lasix -patient refusing Morin for urinary retentsion -avoid hypotension -Nephrology following #Paranoia -psychiatry eval appreciated -on Risperidone at bedtime #Pseudohyponatremia -resolved VTE PPx Lovenox Full Code Subjective Date patient seen: Jan 09, 2019 Time patient seen: 11:30 ROS Limited/Unobtainable: No Constitutional: Denies: chills, fever Cardiovascular: Denies: chest pain, edema Respiratory: Denies: cough, orthopnea Gastrointestinal/Abdominal: Denies: abdomen distended Genitourinary: Reports: burning Allergies: Coded Allergies: No Known Allergies (Unverified , 01/04/19) Subjective Medicine followup for uncontrolled DM and possible NSTEMI + ANGIE Intermittetly noncompliant Will not allow Morin catheter placement, I explained risks of worsening renal failure, uremia and the possible need for HD Objective Last 24 Hour Vital Signs Date Time Temp Pulse Resp B/P (MAP) Pulse Ox O2 Delivery O2 Flow Rate FiO2 01/09/19 09:29 125/81 01/09/19 09:28 72 125/81 01/09/19 08:00 Nasal Cannula 4.0 01/09/19 08:00 71 01/09/19 04:00 72 01/09/19 04:00 97.9 66 20 130/77 (94) 97 01/09/19 04:00 Nasal Cannula 4.0 01/09/19 00:00 76 01/09/19 00:00 97.8 77 20 123/70 (87) 97 01/09/19 00:00 Nasal Cannula 4.0 01/08/19 21:00 66 130/77 01/08/19 20:00 97.9 66 20 130/77 (94) 97 01/08/19 20:00 69 01/08/19 20:00 Nasal Cannula 4.0 01/08/19 16:00 68 01/08/19 16:00 Nasal Cannula 4.0 01/08/19 16:00 97.0 67 18 132/91 (105) 97 Intake and Output 01/08/19 01/09/19 19:00 07:00 Intake Total 240 ml Output Total 100 ml Balance 140 ml Intake Oral 240 ml Output Urine Total 100 ml # Voids 1 1 Laboratory Tests 01/09/19 10:10: White Blood Count 5.3, Red Blood Count 4.51, Hemoglobin 10.8L, Hematocrit 34.5L , Mean Corpuscular Volume 76L, Mean Corpuscular Hemoglobin 24.0L, Mean Corpuscular Hemoglobin Concent 31.4L, Red Cell Distribution Width 15.0H, Platelet Count 216, Mean Platelet Volume 7.3, Neutrophils (%) (Auto) 64.6, Lymphocytes (%) (Auto) 18.6L, Monocytes (%) (Auto) 12.6H, Eosinophils (%) (Auto ) 1.9, Basophils (%) (Auto) 2.4H, Sodium Level 136, Potassium Level 4.4, Chloride Level 101, Carbon Dioxide Level 22, Anion Gap 13, Blood Urea Nitrogen 53H, Creatinine 5.0H, Estimat Glomerular Filtration Rate 10.5, Glucose Level 136H, Calcium Level 8.8 Height (Feet): 5 Height (Inches): 4.00 Weight (Pounds): 205 General Appearance: no apparent distress, alert Neck: normal alignment, supple Cardiovascular: normal rate, regular rhythm Respiratory/Chest: lungs clear, normal breath sounds, no respiratory distress Abdomen: non tender, soft Fernando Bonner MD Jan 09, 2019 15:11
[2019-01-09 16:00] VITALS: BP 120/75
--- NOTE | 2019-01-09 16:10 | NUR ---
NURSE NOTES: Patient asked again about johnson. I explained to her that Dr Smallwood thinks that it will help with her kidney problems. In addition, I explained to her what exactly a johnson, where it will be inserted, and I told her that it is not permanent. Patient said that she would think about it.
--- NOTE | 2019-01-09 19:01 | NUR ---
NURSE NOTES: Bladder scan showed only 11mL of urine in patient's bladder. She is no longer in need of johnson at this time. Will endorse to let Dr Smallwood know tomorrow.
--- NOTE | 2019-01-09 19:55 | NUR ---
NURSE NOTES: Received report from Wyatt Vu RN. Patient is awake in bed, A/O x4. nuclear monitoring technician shows sinus rhythm. Saturating well on 2L O2 via nasal cannula. Right forearm 20g IV saline lock, intact and patent. Bed locked in lowest position with side rails up x2. Call light left within reach. Will continue to monitor.
--- NOTE | 2019-01-09 19:55 | NUR ---
HAND-OFF: Report given to BUSHRA Tavarez. Patient VS stable at this time with no sign of acute distress. Patient voided again and does not have anything in her bladder as shown on the bladder scanner.
[2019-01-09] MEDS: Atorvastatin 20mg tab ORAL SCH (20:58)
[2019-01-09] MEDS: Levemir Flexpen SUBQ SCH ×2 (21:02→21:03)
--- NOTE | 2019-01-09 21:02 | NUR ---
NURSE NOTES: Patient refused novolog and levemir. Risks and benefits explained x3, patient still refused.
--- NOTE | 2019-01-09 22:00 | Physician Query ---
--------- THIS DOCUMENT IS A PERMANENT PART OF THE MEDICAL RECORD --------- PLEASE COMPLETE THE DOCUMENT BEFORE SIGNING Dear Dr. SWEENEY Date: _01/09/19_ Cannoneer/CDS Name: Justice ZAMORA Cannoneer / CDS Phone # Exercise your independent professional judgment when responding to query. Question asked do not imply a particular answer is desired/expected Clinical Documentation States: "The patient is mildly hypoxemic, likely secondary to a component of decompensated heart failure." documented in Dr. Wisdom's Consultation notre "#Systolic CHF" -- documented in Dr. Suazo's PN on 01/08/19 Clinical Findings Show: BNP = 6848, 11038, 51295, 24227 mg/dl Echocardiogram LVEF = 35% Diuretic = Lasix 40 mg IV Please Specify the Acuity of the SYSTOLIC CHF: Acuity [] Acute [] Chronic [xx] Acute on Chronic Condition Present on Admission: [] Yes [] No []Clinically Undeterminable Please also document in your Progress Notes and/or Discharge Summary and indicate if the condition was present on admission. MARKIE SWEENEY DATE & TIME MTDD
--- NOTE | 2019-01-09 23:50 | NUR ---
TRANSFER TO FLOOR: Patient transferred to Telemetry, per Dr. Smith MS. Report given to BUSHRA Pierre as well as belongings and medications. Family and or S/O informed of transfer.
[2019-01-10] VITALS: BP 135/73
--- NOTE | 2019-01-10 00:05 | NUR ---
NURSE NOTES: Received pt from BUSHRA Schneider. Pt awake, alert, and talkative. Bed in lowest position. Call light within reach. Will continue to monitor.
[2019-01-10 03:00] VITALS: BP 135/72
[2019-01-10] MEDS ORDERED: NovoLOG Insulin Flexpen SUBQ SCH (06:30)
[2019-01-10] MEDS: NovoLOG Insulin Flexpen SUBQ SCH ×4 (06:30→21:00)
[2019-01-10 07:38] LABS: EOSINOPHILS % (AUTO) 3.6 % (0.0-3.0); HEMATOCRIT 36.5 % (37.0-47.0); HEMOGLOBIN 11.5 G/DL (12.0-16.0); MEAN CORPUSCULAR VOLUME 77 FL (80-99); MONOCYTES % (AUTO) 12.8 % (1.0-10.0); NEUTROPHILS % (AUTO) 54.6 % (45.0-75.0); PLATELET COUNT 223 K/UL (150-450); RED BLOOD COUNT 4.73 M/UL (4.20-5.40); RED CELL DISTRIBUTION WIDTH 15.7 % (11.6-14.8)
--- NOTE | 2019-01-10 07:41 | NUR ---
HAND-OFF: Report given to BUSHRA Villarreal. Pt stable.
--- NOTE | 2019-01-10 07:52 | NUR ---
NURSE NOTES: Received report from BUSHRA Pierre. Patient in bed resting, no active s/s cardiac, respiratory distress noticed at this time, denies pain at this time. IV on right FA 20G SL. Endorsed PICC placement schedule for tomorrow 01/11/19. Patient on 2L oxygen via NC. SR with HR 68, AO x4. Bed in lowest position ,side rails x3, call light within reach. Will continue to monitor.
[2019-01-10 07:54] LABS: ANION GAP 11 mmol/L (5-15); BLOOD UREA NITROGEN 49 mg/dL (7-18); CALCIUM 9.3 MG/DL (8.5-10.1); CARBON DIOXIDE 24 MMOL/L (21-32); CHLORIDE 102 MMOL/L (98-107); CREATININE 4.5 MG/DL (0.55-1.30); POTASSIUM 3.8 MMOL/L (3.5-5.1); SODIUM 137 MMOL/L (136-145)
[2019-01-10 08:00] VITALS: BP 125/78
[2019-01-10] MEDS ORDERED: Aspirin Baby 81mg ORAL SCH (09:00)
[2019-01-10] MEDS ORDERED: Enoxaparin 80mg Inj SUBQ SCH (09:00)
[2019-01-10] MEDS: Enoxaparin 80mg Inj SUBQ SCH (09:00)
[2019-01-10] MEDS ORDERED: Tamsulosin 0.4mg cap ORAL SCH (09:00)
[2019-01-10] MEDS: Tamsulosin 0.4mg cap ORAL SCH ×2 (09:00→20:58)
[2019-01-10] MEDS: Metoprolol 25mg tab ORAL SCH ×2 (09:01→20:58)
[2019-01-10] MEDS: Aspirin Baby 81mg ORAL SCH (09:01)
[2019-01-10] MEDS: Imdur 30mg tab ORAL SCH (09:01)
--- NOTE | 2019-01-10 10:07 | General Progress Note ---
Assessment/Plan Assessment/Plan #Uncontrolled DM type 2 without evidence of DKA #Obesity #Medical noncompliance -controlled -continue Levemir 10 units -lispro sliding scale -needs further education about compliance #NSTEMI #Systolic CHF -continue telemetry -cont ASA,Lipitor,metoprolol and Lovenox -TTE showing EF of 35% -cardiology following #ANGIE -creatinine improving -hold Lasix -avoid hypotension -Nephrology following #Paranoia -psychiatry eval appreciated -on Risperidone at bedtime #Pseudohyponatremia -resolved VTE PPx Lovenox Full Code Subjective Date patient seen: Jan 10, 2019 Time patient seen: 09:00 Constitutional: Denies: chills, fever Cardiovascular: Denies: chest pain Respiratory: Denies: cough, shortness of breath Gastrointestinal/Abdominal: Denies: abdomen distended, abdominal pain Genitourinary: Denies: burning, discharge Allergies: Coded Allergies: No Known Allergies (Unverified , 01/04/19) Subjective Medicine followup for uncontrolled DM and possible NSTEMI + ANGIE Intermittently noncompliant No new complaints. Objective Last 24 Hour Vital Signs Date Time Temp Pulse Resp B/P (MAP) Pulse Ox O2 Delivery O2 Flow Rate FiO2 01/10/19 09:01 71 125/78 01/10/19 09:01 125/78 01/10/19 04:00 68 01/10/19 04:00 Nasal Cannula 4.0 01/10/19 03:00 69 135/72 (93) 01/10/19 00:00 67 01/10/19 00:00 97.7 68 20 135/73 (93) 94 01/09/19 20:59 68 112/39 01/09/19 20:00 Nasal Cannula 4.0 01/09/19 19:42 69 01/09/19 16:00 Nasal Cannula 4.0 01/09/19 16:00 61 01/09/19 16:00 97.3 62 20 120/75 (90) 93 01/09/19 12:00 66 01/09/19 12:00 97.7 59 18 113/78 (90) 94 01/09/19 12:00 Nasal Cannula 4.0 Intake and Output 01/09/19 01/10/19 18:59 06:59 Intake Total 480 ml Output Total 500 ml Balance -20 ml Intake Oral 480 ml Output Urine Total 500 ml # Voids 2 2 Laboratory Tests 01/09/19 10:10: White Blood Count 5.3, Red Blood Count 4.51, Hemoglobin 10.8L, Hematocrit 34.5L , Mean Corpuscular Volume 76L, Mean Corpuscular Hemoglobin 24.0L, Mean Corpuscular Hemoglobin Concent 31.4L, Red Cell Distribution Width 15.0H, Platelet Count 216, Mean Platelet Volume 7.3, Neutrophils (%) (Auto) 64.6, Lymphocytes (%) (Auto) 18.6L, Monocytes (%) (Auto) 12.6H, Eosinophils (%) (Auto ) 1.9, Basophils (%) (Auto) 2.4H, Sodium Level 136, Potassium Level 4.4, Chloride Level 101, Carbon Dioxide Level 22, Anion Gap 13, Blood Urea Nitrogen 53H, Creatinine 5.0H, Estimat Glomerular Filtration Rate 10.5, Glucose Level 136H, Calcium Level 8.8 01/10/19 06:22: White Blood Count 5.0, Red Blood Count 4.73, Hemoglobin 11.5L, Hematocrit 36.5L , Mean Corpuscular Volume 77L, Mean Corpuscular Hemoglobin 24.2L, Mean Corpuscular Hemoglobin Concent 31.4L, Red Cell Distribution Width 15.7H, Platelet Count 223, Mean Platelet Volume 8.0, Neutrophils (%) (Auto) 54.6, Lymphocytes (%) (Auto) 27.0, Monocytes (%) (Auto) 12.8H, Eosinophils (%) (Auto) 3.6H, Basophils (%) (Auto) 2.0, Sodium Level 137, Potassium Level 3.8, Chloride Level 102, Carbon Dioxide Level 24, Anion Gap 11, Blood Urea Nitrogen 49H, Creatinine 4.5H, Estimat Glomerular Filtration Rate 11.9, Glucose Level 114H, Calcium Level 9.3 Height (Feet): 5 Height (Inches): 4.00 Weight (Pounds): 205 General Appearance: no apparent distress, alert Neck: normal alignment, supple Cardiovascular: normal rate, regular rhythm Respiratory/Chest: lungs clear, normal breath sounds, no respiratory distress Abdomen: non tender, soft Fernando Bonner MD Jan 10, 2019 10:07
[2019-01-10] MEDS ORDERED: GI Cocktail 50ml ORAL PRN (10:15)
[2019-01-10 11:10] LABS: ALANINE AMINOTRANSFERASE 247 U/L (12-78); ALBUMIN 2.9 G/DL (3.4-5.0); ALKALINE PHOSPHATASE 386 U/L (46-116); ASPARTATE AMINO TRANSFERASE 190 U/L (15-37); BILIRUBIN,DIRECT 0.6 MG/DL (0.0-0.3); BILIRUBIN,TOTAL 1.1 MG/DL (0.2-1.0)
--- NOTE | 2019-01-10 11:36 | Pulmonology Progress Note ---
Assessment/Plan Problems: (1) Cardiomegaly (2) Atelectasis (3) Noncompliance (4) Hyperglycemia (5) NSTEMI (non-ST elevated myocardial infarction) (6) ANGIE (acute kidney injury) (7) Delusion Assessment/Plan ASSESSMENT: The patient is a 68-year-old female with history of obesity, possible GHANSHYAM, type 2 diabetes, noncompliant with medical care, presenting with generalized malaise and a [id number] MT with evidence of acute kidney injury. The patient is mildly hypoxemic, likely secondary to a component of decompensated heart failure. I will apply a duplex and D-dimer to rule out venous thromboembolism. PROBLEM LIST: 1. Non ST-elevation MT. 2. Mild hypoxemia. 3. Hyperglycemia. 4. Type 2 diabetes, noncompliant with medical treatment. 5. ANGIE versus CKD. 7. Obesity. 8. Snoring. TREATMENT PLAN: 1. Optimize pulmonary hygiene/mobilize as tolerated. 2. Titrate down FiO2 to keep saturations greater 90%. 3. Refused ABG 4. VQ non-diagnostic 5. Monitor volumes and renal function. 5. F/U renal recs 6. Follow Cardiology recommendations, medical management of non-STEMI, will need ischemia evaluation at some point. 7. Consider discontinue Lovenox and switch to heparin given abnormal renal function. 8. The patient should have outpatient sleep study. 9. F/U psych recs 10. DVT prophylaxis. The patient is on low-molecular weight heparin, Subjective Allergies: Coded Allergies: No Known Allergies (Unverified , 01/04/19) Subjective AFVSS O2 needs stable - Cr better Refused PICC Refused FC Refused ABG Refused multiple interventions Feels slightly better No SOB no cough no wheezing no FC Objective Last 24 Hour Vital Signs Date Time Temp Pulse Resp B/P (MAP) Pulse Ox O2 Delivery O2 Flow Rate FiO2 01/10/19 09:01 71 125/78 01/10/19 09:01 125/78 01/10/19 08:00 Nasal Cannula 4.0 01/10/19 08:00 97.2 71 20 125/78 (94) 94 01/10/19 04:00 68 01/10/19 04:00 Nasal Cannula 4.0 01/10/19 03:00 69 135/72 (93) 01/10/19 00:00 67 01/10/19 00:00 97.7 68 20 135/73 (93) 94 01/09/19 20:59 68 112/39 01/09/19 20:00 Nasal Cannula 4.0 01/09/19 19:42 69 01/09/19 16:00 Nasal Cannula 4.0 01/09/19 16:00 61 01/09/19 16:00 97.3 62 20 120/75 (90) 93 01/09/19 12:00 66 01/09/19 12:00 97.7 59 18 113/78 (90) 94 01/09/19 12:00 Nasal Cannula 4.0 Intake and Output 01/09/19 01/10/19 18:59 06:59 Intake Total 480 ml Output Total 500 ml Balance -20 ml Intake Oral 480 ml Output Urine Total 500 ml # Voids 2 2 General Appearance: no acute distress, cachetic HEENT: normocephalic, atraumatic, anicteric, mucous membranes moist Respiratory/Chest: chest wall non-tender, lungs clear, normal breath sounds, no respiratory distress, no accessory muscle use Cardiovascular: normal peripheral pulses, normal rate, regular rhythm Abdomen: normal bowel sounds, soft, non tender, no organomegaly, non distended , no mass Extremities: no cyanosis, no clubbing, no edema Laboratory Tests 01/10/19 06:22: White Blood Count 5.0, Red Blood Count 4.73, Hemoglobin 11.5L, Hematocrit 36.5L , Mean Corpuscular Volume 77L, Mean Corpuscular Hemoglobin 24.2L, Mean Corpuscular Hemoglobin Concent 31.4L, Red Cell Distribution Width 15.7H, Platelet Count 223, Mean Platelet Volume 8.0, Neutrophils (%) (Auto) 54.6, Lymphocytes (%) (Auto) 27.0, Monocytes (%) (Auto) 12.8H, Eosinophils (%) (Auto) 3.6H, Basophils (%) (Auto) 2.0, Sodium Level 137, Potassium Level 3.8, Chloride Level 102, Carbon Dioxide Level 24, Anion Gap 11, Blood Urea Nitrogen 49H, Creatinine 4.5H, Estimat Glomerular Filtration Rate 11.9, Glucose Level 114H, Calcium Level 9.3, Total Bilirubin 1.1H, Direct Bilirubin 0.6H, Aspartate Amino Transf (AST/SGOT) 190H, Alanine Aminotransferase (ALT/SGPT) 247H, Alkaline Phosphatase 386H, Total Protein 7.1, Albumin 2.9L Current Medications Medications (Trade) Dose Ordered Sig/Nessa Route PRN Reason Start Time Stop Time Status Last Admin Dose Admin Acetaminophen (Tylenol) 650 mg Q6H PRN ORAL Mild Pain/Temp > 100.5 01/10/19 00:30 02/04/19 18:29 Aspirin (ASA) 81 mg DAILY ORAL 01/10/19 09:00 02/04/19 08:59 01/10/19 09:01 Atorvastatin Calcium (Lipitor) 40 mg BEDTIME ORAL 01/10/19 21:00 02/03/19 20:59 Dextrose (Dextrose 50%) 25 ml Q30M PRN IV Hypoglycemia 01/10/19 00:30 02/03/19 16:59 Dextrose (Dextrose 50%) 50 ml Q30M PRN IV Hypoglycemia 01/10/19 00:30 02/03/19 16:59 Enoxaparin Sodium (Lovenox) 80 mg DAILY SUBQ 01/10/19 09:00 02/03/19 16:59 01/10/19 09:00 Insulin Aspart (NovoLOG) BEFORE MEALS AND HS SUBQ 01/10/19 06:30 02/03/19 20:59 Insulin Detemir (Levemir) 10 units BEDTIME SUBQ 01/10/19 21:00 02/03/19 20:59 Isosorbide Mononitrate (Imdur) 30 mg DAILY ORAL 01/10/19 09:00 02/05/19 08:59 01/10/19 09:01 Metoprolol Tartrate (Lopressor) 25 mg EVERY 12 HOURS ORAL 01/10/19 09:00 02/03/19 20:59 01/10/19 09:01 Ondansetron HCl (Zofran) 4 mg Q6H PRN IVP Nausea & Vomiting 01/10/19 05:00 02/03/19 16:59 Pantoprazole (Protonix) 40 mg DAILY ORAL 01/10/19 09:00 02/04/19 10:14 01/10/19 09:00 Risperidone (RisperDAL) 2 mg QHS ORAL 01/10/19 21:00 02/06/19 20:59 Tamsulosin HCl (Flomax) 0.4 mg Q12HR ORAL 01/10/19 09:00 02/07/19 20:59 01/10/19 09:00 Velasquez Wisdom MD Jan 10, 2019 11:36
[2019-01-10 12:00] VITALS: BP 133/81
--- NOTE | 2019-01-10 13:52 | Surgery Progress Note ---
Surgery Progress Note Subjective Additional Comments no acute events. Objective Last 24 Hour Vital Signs Date Time Temp Pulse Resp B/P (MAP) Pulse Ox O2 Delivery O2 Flow Rate FiO2 01/10/19 09:01 71 125/78 01/10/19 09:01 125/78 01/10/19 08:00 Nasal Cannula 4.0 01/10/19 08:00 97.2 71 20 125/78 (94) 94 01/10/19 04:00 68 01/10/19 04:00 Nasal Cannula 4.0 01/10/19 03:00 69 135/72 (93) 01/10/19 00:00 67 01/10/19 00:00 97.7 68 20 135/73 (93) 94 01/09/19 20:59 68 112/39 01/09/19 20:00 Nasal Cannula 4.0 01/09/19 19:42 69 01/09/19 16:00 Nasal Cannula 4.0 01/09/19 16:00 61 01/09/19 16:00 97.3 62 20 120/75 (90) 93 I&O Intake and Output 01/09/19 01/10/19 18:59 06:59 Intake Total 480 ml Output Total 500 ml Balance -20 ml Intake Oral 480 ml Output Urine Total 500 ml # Voids 2 2 Dressing: other Wound: other Drains: other Cardiovascular: RSR Respiratory: decreased breath sounds Abdomen: soft, present bowel sounds Extremities: other Laboratory Tests Test 01/10/19 06:22 White Blood Count 5.0 K/UL (4.8-10.8) Red Blood Count 4.73 M/UL (4.20-5.40) Hemoglobin 11.5 G/DL (12.0-16.0) L Hematocrit 36.5 % (37.0-47.0) L Mean Corpuscular Volume 77 FL (80-99) L Mean Corpuscular Hemoglobin 24.2 PG (27.0-31.0) L Mean Corpuscular Hemoglobin Concent 31.4 G/DL (32.0-36.0) L Red Cell Distribution Width 15.7 % (11.6-14.8) H Platelet Count 223 K/UL (150-450) Mean Platelet Volume 8.0 FL (6.5-10.1) Neutrophils (%) (Auto) 54.6 % (45.0-75.0) Lymphocytes (%) (Auto) 27.0 % (20.0-45.0) Monocytes (%) (Auto) 12.8 % (1.0-10.0) H Eosinophils (%) (Auto) 3.6 % (0.0-3.0) H Basophils (%) (Auto) 2.0 % (0.0-2.0) Sodium Level 137 MMOL/L (136-145) Potassium Level 3.8 MMOL/L (3.5-5.1) Chloride Level 102 MMOL/L (98-107) Carbon Dioxide Level 24 MMOL/L (21-32) Anion Gap 11 mmol/L (5-15) Blood Urea Nitrogen 49 mg/dL (7-18) H Creatinine 4.5 MG/DL (0.55-1.30) H Estimat Glomerular Filtration Rate 11.9 mL/min (>60) Glucose Level 114 MG/DL (74-106) H Calcium Level 9.3 MG/DL (8.5-10.1) Total Bilirubin 1.1 MG/DL (0.2-1.0) H Direct Bilirubin 0.6 MG/DL (0.0-0.3) H Aspartate Amino Transf (AST/SGOT) 190 U/L (15-37) H Alanine Aminotransferase (ALT/SGPT) 247 U/L (12-78) H Alkaline Phosphatase 386 U/L (46-116) H Total Protein 7.1 G/DL (6.4-8.2) Albumin 2.9 G/DL (3.4-5.0) L Plan Problems: (1) Leg ulcer Assessment & Plan: Pt presents with #2 ulcers posterior /distal L tibia . Pt stated having wounds since last August and denied previously been seen by a Physician for wounds Pt unable to provide etiology of wounds. Proximal wound 100% necrotic ,malodorous without exudate(L)1.5cm x (W)1.7cm. Second wound inferior but in close proximity Base of wound with necrosis /slough and is malodorous .Small amt brown exudate noted .Periwound without fluctuance, induration or elevation in skin temp. Pt verbalized tenderness when area around wound palpated. Tx Plan: Apply Betadine swabs to both lower extremity ulcerated wounds daily. Cover with Optifoam drsg Daily and prn. Radames Baeza Jan 10, 2019 13:52
--- NOTE | 2019-01-10 15:35 | Cardiac Electrophysiology PN ---
Assessment/Plan Assessment/Plan 1. Non-ST elevation myocardial infarction and troponin of 2.1. Levels are flat. Could be due to renal failure. Creatinine is 5 Denies any chest pain [place] [id number] ECG lateral T wave inversion. Stress test in am 2. CHF with EF 35%. On Lopressor, Hydralazine and Isordil Ischemia evaluation before DC 3. HTN On CHF meds 4. Renal failure. Creatinine 5 Off Lasix and Aldactone 5. Uncontrolled diabetes with Glucose >400 6. Hyponatremia. 7. SOB. VQ scan nondiagnostic DW RN Subjective Subjective No CP or SOB.Remained in SR Objective Last 24 Hour Vital Signs Date Time Temp Pulse Resp B/P (MAP) Pulse Ox O2 Delivery O2 Flow Rate FiO2 01/10/19 12:00 Nasal Cannula 4.0 01/10/19 12:00 67 01/10/19 12:00 97.0 66 20 133/81 (98) 92 01/10/19 09:01 71 125/78 01/10/19 09:01 125/78 01/10/19 08:00 Nasal Cannula 4.0 01/10/19 08:00 69 01/10/19 08:00 97.2 71 20 125/78 (94) 94 01/10/19 04:00 68 01/10/19 04:00 Nasal Cannula 4.0 01/10/19 03:00 69 135/72 (93) 01/10/19 00:00 67 01/10/19 00:00 97.7 68 20 135/73 (93) 94 01/09/19 20:59 68 112/39 01/09/19 20:00 Nasal Cannula 4.0 01/09/19 19:42 69 01/09/19 16:00 Nasal Cannula 4.0 01/09/19 16:00 61 01/09/19 16:00 97.3 62 20 120/75 (90) 93 Intake and Output 01/09/19 01/10/19 18:59 06:59 Intake Total 480 ml Output Total 500 ml Balance -20 ml Intake Oral 480 ml Output Urine Total 500 ml # Voids 2 2 Laboratory Tests Test 01/10/19 06:22 White Blood Count 5.0 K/UL (4.8-10.8) Red Blood Count 4.73 M/UL (4.20-5.40) Hemoglobin 11.5 G/DL (12.0-16.0) L Hematocrit 36.5 % (37.0-47.0) L Mean Corpuscular Volume 77 FL (80-99) L Mean Corpuscular Hemoglobin 24.2 PG (27.0-31.0) L Mean Corpuscular Hemoglobin Concent 31.4 G/DL (32.0-36.0) L Red Cell Distribution Width 15.7 % (11.6-14.8) H Platelet Count 223 K/UL (150-450) Mean Platelet Volume 8.0 FL (6.5-10.1) Neutrophils (%) (Auto) 54.6 % (45.0-75.0) Lymphocytes (%) (Auto) 27.0 % (20.0-45.0) Monocytes (%) (Auto) 12.8 % (1.0-10.0) H Eosinophils (%) (Auto) 3.6 % (0.0-3.0) H Basophils (%) (Auto) 2.0 % (0.0-2.0) Sodium Level 137 MMOL/L (136-145) Potassium Level 3.8 MMOL/L (3.5-5.1) Chloride Level 102 MMOL/L (98-107) Carbon Dioxide Level 24 MMOL/L (21-32) Anion Gap 11 mmol/L (5-15) Blood Urea Nitrogen 49 mg/dL (7-18) H Creatinine 4.5 MG/DL (0.55-1.30) H Estimat Glomerular Filtration Rate 11.9 mL/min (>60) Glucose Level 114 MG/DL (74-106) H Calcium Level 9.3 MG/DL (8.5-10.1) Total Bilirubin 1.1 MG/DL (0.2-1.0) H Direct Bilirubin 0.6 MG/DL (0.0-0.3) H Aspartate Amino Transf (AST/SGOT) 190 U/L (15-37) H Alanine Aminotransferase (ALT/SGPT) 247 U/L (12-78) H Alkaline Phosphatase 386 U/L (46-116) H Total Protein 7.1 G/DL (6.4-8.2) Albumin 2.9 G/DL (3.4-5.0) L Objective HEAD AND NECK: No JVD. LUNGS: Clear. CARDIOVASCULAR: Regular S1 and S2 with no gallop or murmur. ABDOMEN: Soft. EXTREMITIES: No edema Froilan Vallecillo MD Jan 10, 2019 15:34
[2019-01-10] MEDS ORDERED: Lexiscan 0.4mg/5ml syringe IV PRN (15:45)
[2019-01-10 16:00] VITALS: BP 125/83
--- NOTE | 2019-01-10 18:13 | Nephrology Progress Note ---
Assessment/Plan Problem List: (1) ANGIE (acute kidney injury) (2) NSTEMI (non-ST elevated myocardial infarction) (3) Hyperglycemia (4) Urinary outflow obstruction Assessment Acute on Chronic Renal failure- Cr higher PATIENT REFUSES JOHNSON FOR URINARY RETENTION NSTEMI (non-ST elevated myocardial infarction), troponin higher Hyperglycemia , DM Cardiomegaly Atelectasis Noncompliance Plan discussed with daughter johnson- refused and continues to do so TRIAL FLOMAX discussed with PMD DC lasix- fluid challenge- again SUSANNA kidney negative Optimize cardiac and pulmonary status avoid nephrotoxics keep BP and BS in check monitor renal parameters urine studies per orders Subjective ROS Limited/Unobtainable: No Constitutional: Reports: malaise Objective Objective Last 24 Hour Vital Signs Date Time Temp Pulse Resp B/P (MAP) Pulse Ox O2 Delivery O2 Flow Rate FiO2 01/10/19 16:00 Nasal Cannula 4.0 01/10/19 16:00 68 01/10/19 16:00 97.4 70 20 125/83 (97) 92 01/10/19 12:00 Nasal Cannula 4.0 01/10/19 12:00 67 01/10/19 12:00 97.0 66 20 133/81 (98) 92 01/10/19 09:01 71 125/78 01/10/19 09:01 125/78 01/10/19 08:00 Nasal Cannula 4.0 01/10/19 08:00 69 01/10/19 08:00 97.2 71 20 125/78 (94) 94 01/10/19 04:00 68 01/10/19 04:00 Nasal Cannula 4.0 01/10/19 03:00 69 135/72 (93) 01/10/19 00:00 67 01/10/19 00:00 97.7 68 20 135/73 (93) 94 01/09/19 20:59 68 112/39 01/09/19 20:00 Nasal Cannula 4.0 01/09/19 19:42 69 Intake and Output 01/09/19 01/10/19 19:00 07:00 Intake Total 480 ml Output Total 500 ml Balance -20 ml Intake Oral 480 ml Output Urine Total 500 ml # Voids 2 2 Laboratory Tests 01/10/19 06:22: White Blood Count 5.0, Red Blood Count 4.73, Hemoglobin 11.5L, Hematocrit 36.5L , Mean Corpuscular Volume 77L, Mean Corpuscular Hemoglobin 24.2L, Mean Corpuscular Hemoglobin Concent 31.4L, Red Cell Distribution Width 15.7H, Platelet Count 223, Mean Platelet Volume 8.0, Neutrophils (%) (Auto) 54.6, Lymphocytes (%) (Auto) 27.0, Monocytes (%) (Auto) 12.8H, Eosinophils (%) (Auto) 3.6H, Basophils (%) (Auto) 2.0, Sodium Level 137, Potassium Level 3.8, Chloride Level 102, Carbon Dioxide Level 24, Anion Gap 11, Blood Urea Nitrogen 49H, Creatinine 4.5H, Estimat Glomerular Filtration Rate 11.9, Glucose Level 114H, Calcium Level 9.3, Total Bilirubin 1.1H, Direct Bilirubin 0.6H, Aspartate Amino Transf (AST/SGOT) 190H, Alanine Aminotransferase (ALT/SGPT) 247H, Alkaline Phosphatase 386H, Total Protein 7.1, Albumin 2.9L Height (Feet): 5 Height (Inches): 4.00 Weight (Pounds): 205 General Appearance: no apparent distress Respiratory/Chest: decreased breath sounds Abdomen: distended Donald Smallwood MD Jan 10, 2019 18:13
--- NOTE | 2019-01-10 19:45 | NUR ---
HAND-OFF: Report given to BUSHRA Waggoner.
[2019-01-10 20:00] VITALS: BP 146/81
--- NOTE | 2019-01-10 20:13 | NUR ---
NURSE NOTES: Report received from BUSHRA Villarreal. Observed pt lying on the bed. A/O x4. Denies any pain at this time. SR with playground monitor. On NC 2L with no signs of SOB. IV on R FA 20G intact and patent. Stress test will be done tomorrow and pt is going to be NPO after midnight. NPO sign on the head of the bed. Bed in the lowest position. Call light within reach. Will continue to monitor.
[2019-01-10] MEDS ORDERED: Atorvastatin 20mg tab ORAL SCH (21:00)
[2019-01-10] MEDS ORDERED: Levemir Flexpen SUBQ SCH ×2 (21:00)
[2019-01-11] VITALS: BP 107/60
--- NOTE | 2019-01-11 | NUR ---
NURSE NOTES: Pt daughter at the bedside. NPO after midnight noted. Pt c/o noise and light from outside. Door slightly closed. Will continue to monitor.
[2019-01-11 04:00] VITALS: BP 116/73
--- NOTE | 2019-01-11 04:03 | NUR ---
NURSE NOTES: Observed pt sleeping on the bed. No signs of pain and sob noted. Will continue to monitor.
--- NOTE | 2019-01-11 06:16 | NUR ---
NURSE NOTES: Pt refused to check blood sugar. Explained risks and benefits and still refused. Will continue to monitor.
[2019-01-11] MEDS: NovoLOG Insulin Flexpen SUBQ SCH ×2 (06:30→11:28)
[2019-01-11 06:50] LABS: EOSINOPHILS % (AUTO) 4.4 % (0.0-3.0); HEMATOCRIT 34.2 % (37.0-47.0); HEMOGLOBIN 10.5 G/DL (12.0-16.0); LYMPHOCYTES % (AUTO) 20.8 % (20.0-45.0); MEAN CORPUSCULAR VOLUME 78 FL (80-99); MONOCYTES % (AUTO) 15.4 % (1.0-10.0); NEUTROPHILS % (AUTO) 57.4 % (45.0-75.0); PLATELET COUNT 203 K/UL (150-450); RED BLOOD COUNT 4.37 M/UL (4.20-5.40); RED CELL DISTRIBUTION WIDTH 15.4 % (11.6-14.8); WHITE BLOOD COUNT 5.1 K/UL (4.8-10.8)
--- NOTE | 2019-01-11 07:25 | NUR ---
HAND-OFF: Report given to BUSHRA Christopher.
[2019-01-11 07:29] LABS: % IRON SATURATION 14 % (15-50); IRON 28 ug/dL (50-175); TOTAL IRON BINDING CAPACITY 202 ug/dL (250-450)
[2019-01-11 07:35] LABS: ALANINE AMINOTRANSFERASE 190 U/L (12-78); ALBUMIN 2.7 G/DL (3.4-5.0); ALBUMIN/GLOBULIN RATIO 0.6 (1.0-2.7); ALKALINE PHOSPHATASE 358 U/L (46-116); ANION GAP 9 mmol/L (5-15); ASPARTATE AMINO TRANSFERASE 123 U/L (15-37); BILIRUBIN,TOTAL 0.9 MG/DL (0.2-1.0); BLOOD UREA NITROGEN 44 mg/dL (7-18); CALCIUM 8.8 MG/DL (8.5-10.1); CARBON DIOXIDE 26 MMOL/L (21-32); CHLORIDE 102 MMOL/L (98-107); CREATININE 3.5 MG/DL (0.55-1.30); FERRITIN 802 NG/ML (8-388); PHOSPHORUS 3.6 MG/DL (2.5-4.9); POTASSIUM 3.4 MMOL/L (3.5-5.1); SODIUM 137 MMOL/L (136-145)
--- NOTE | 2019-01-11 07:40 | NUR ---
NURSE NOTES: Received patient in bed. A/O X4, resting in bed. Tuttle Christine, daughter by the bedside. IV site is patent, intact, asymptomatic. Call light within reach. Safety measures applied. patient verbalized understanding of being NPO for the Stress Test scheduled today.
[2019-01-11 08:00] VITALS: BP 142/91
[2019-01-11] MEDS: Tamsulosin 0.4mg cap ORAL SCH (09:00)
[2019-01-11] MEDS: Enoxaparin 80mg Inj SUBQ SCH (09:00)
[2019-01-11] MEDS: Aspirin Baby 81mg ORAL SCH (09:00)
[2019-01-11] MEDS: Metoprolol 25mg tab ORAL SCH (09:00)
[2019-01-11] MEDS: Imdur 30mg tab ORAL SCH (09:00)
--- NOTE | 2019-01-11 10:13 | NUR ---
NURSE NOTES: Left msg to Dr. Longo regarding patient's ST not being done today. Per Mikael collator hand, Dr Foy is the director validation today, Dr. Foy refused to do it due to troponin level 2.1 and it's trending up Dr. Foy recommended cardiac cath.
--- NOTE | 2019-01-11 11:25 | General Progress Note ---
Assessment/Plan Problem List: (1) Schizophrenia ICD Codes: F20.9 - Schizophrenia, unspecified SNOMED: 80563093 (2) MDD (major depressive disorder) ICD Codes: F32.9 - Major depressive disorder, single episode, unspecified SNOMED: 570317476 Status: stable Assessment/Plan risperdal 2mg po qhs the pt was provided with ro the pt was educated about her medical condition Subjective Date patient seen: Jan 11, 2019 Neurologic/Psychiatric: Reports: anxiety, depressed Allergies: Coded Allergies: No Known Allergies (Unverified , 01/04/19) Subjective the pt cont to be irritable and withdrawn the pt is more compliant the pt remains paranoid. Objective Last 24 Hour Vital Signs Date Time Temp Pulse Resp B/P (MAP) Pulse Ox O2 Delivery O2 Flow Rate FiO2 01/11/19 09:00 Nasal Cannula 2.0 01/11/19 09:00 89 142/91 01/11/19 09:00 142/91 01/11/19 08:00 98.6 89 22 142/91 (108) 92 01/11/19 08:00 64 01/11/19 04:00 66 01/11/19 04:00 98.1 68 17 116/73 (87) 94 01/11/19 00:00 97.9 64 16 107/60 (76) 95 01/11/19 00:00 67 01/10/19 20:58 74 146/81 01/10/19 20:00 68 01/10/19 20:00 96.6 68 17 146/81 (102) 92 01/10/19 20:00 Nasal Cannula 4.0 01/10/19 16:00 Nasal Cannula 4.0 01/10/19 16:00 68 01/10/19 16:00 97.4 70 20 125/83 (97) 92 01/10/19 12:00 Nasal Cannula 4.0 01/10/19 12:00 67 01/10/19 12:00 97.0 66 20 133/81 (98) 92 Intake and Output 01/10/19 01/11/19 18:59 06:59 Output Total 400 ml Balance -400 ml Output Urine Total 400 ml # Voids 2 4 Laboratory Tests 01/11/19 05:15: White Blood Count 5.1, Red Blood Count 4.37, Hemoglobin 10.5L, Hematocrit 34.2L , Mean Corpuscular Volume 78L, Mean Corpuscular Hemoglobin 24.1L, Mean Corpuscular Hemoglobin Concent 30.8L, Red Cell Distribution Width 15.4H, Platelet Count 203, Mean Platelet Volume 7.5, Neutrophils (%) (Auto) 57.4, Lymphocytes (%) (Auto) 20.8, Monocytes (%) (Auto) 15.4H, Eosinophils (%) (Auto) 4.4H, Basophils (%) (Auto) 2.0, Sodium Level 137, Potassium Level 3.4L, Chloride Level 102, Carbon Dioxide Level 26, Anion Gap 9, Blood Urea Nitrogen 44H, Creatinine 3.5H, Estimat Glomerular Filtration Rate 15.9, Glucose Level 122H, Uric Acid 13.1H, Calcium Level 8.8, Phosphorus Level 3.6, Magnesium Level 1.9, Iron Level 28L, Total Iron Binding Capacity 202L, Percent Iron Saturation 14L, Unsaturated Iron Binding 174, Ferritin 802H, Total Bilirubin 0.9, Aspartate Amino Transf (AST/SGOT) 123H, Alanine Aminotransferase (ALT/SGPT) 190H , Alkaline Phosphatase 358H, Total Protein 6.9, Albumin 2.7L, Globulin 4.2, Albumin/Globulin Ratio 0.6L Height (Feet): 5 Height (Inches): 4.00 Weight (Pounds): 205 General Appearance: WD/WN, no apparent distress, alert Neurologic: oriented x 3, responsive, depressed affect Mikaela Zhang MD Jan 11, 2019 11:25
--- NOTE | 2019-01-11 11:30 | NUR ---
NURSE NOTES: Resumed patient's previous diet per Dr. Longo's order
[2019-01-11 12:00] VITALS: BP 150/71
--- NOTE | 2019-01-11 12:40 | Nephrology Progress Note ---
Assessment/Plan Problem List: (1) ANGIE (acute kidney injury) (2) NSTEMI (non-ST elevated myocardial infarction) (3) Hyperglycemia (4) Urinary outflow obstruction Assessment Acute on Chronic Renal failure- Cr higher PATIENT REFUSES JOHNSON FOR URINARY RETENTION NSTEMI (non-ST elevated myocardial infarction), troponin higher Hyperglycemia , DM Cardiomegaly Atelectasis Noncompliance Plan discussed with daughter johnson- refused and continues to do so TRIAL FLOMAX discussed with PMD DC lasix- fluid challenge- again SUSANNA kidney negative Optimize cardiac and pulmonary status avoid nephrotoxics keep BP and BS in check monitor renal parameters urine studies per orders Subjective ROS Limited/Unobtainable: No Constitutional: Reports: malaise Objective Objective Last 24 Hour Vital Signs Date Time Temp Pulse Resp B/P (MAP) Pulse Ox O2 Delivery O2 Flow Rate FiO2 01/11/19 09:00 Nasal Cannula 2.0 01/11/19 09:00 89 142/91 01/11/19 09:00 142/91 01/11/19 08:00 98.6 89 22 142/91 (108) 92 01/11/19 08:00 64 01/11/19 04:00 66 01/11/19 04:00 98.1 68 17 116/73 (87) 94 01/11/19 00:00 97.9 64 16 107/60 (76) 95 01/11/19 00:00 67 01/10/19 20:58 74 146/81 01/10/19 20:00 68 01/10/19 20:00 96.6 68 17 146/81 (102) 92 01/10/19 20:00 Nasal Cannula 4.0 01/10/19 16:00 Nasal Cannula 4.0 01/10/19 16:00 68 01/10/19 16:00 97.4 70 20 125/83 (97) 92 Intake and Output 01/10/19 01/11/19 19:00 07:00 Output Total 400 ml Balance -400 ml Output Urine Total 400 ml # Voids 2 4 Laboratory Tests 01/11/19 05:15: White Blood Count 5.1, Red Blood Count 4.37, Hemoglobin 10.5L, Hematocrit 34.2L , Mean Corpuscular Volume 78L, Mean Corpuscular Hemoglobin 24.1L, Mean Corpuscular Hemoglobin Concent 30.8L, Red Cell Distribution Width 15.4H, Platelet Count 203, Mean Platelet Volume 7.5, Neutrophils (%) (Auto) 57.4, Lymphocytes (%) (Auto) 20.8, Monocytes (%) (Auto) 15.4H, Eosinophils (%) (Auto) 4.4H, Basophils (%) (Auto) 2.0, Sodium Level 137, Potassium Level 3.4L, Chloride Level 102, Carbon Dioxide Level 26, Anion Gap 9, Blood Urea Nitrogen 44H, Creatinine 3.5H, Estimat Glomerular Filtration Rate 15.9, Glucose Level 122H, Uric Acid 13.1H, Calcium Level 8.8, Phosphorus Level 3.6, Magnesium Level 1.9, Iron Level 28L, Total Iron Binding Capacity 202L, Percent Iron Saturation 14L, Unsaturated Iron Binding 174, Ferritin 802H, Total Bilirubin 0.9, Aspartate Amino Transf (AST/SGOT) 123H, Alanine Aminotransferase (ALT/SGPT) 190H , Alkaline Phosphatase 358H, Total Protein 6.9, Albumin 2.7L, Globulin 4.2, Albumin/Globulin Ratio 0.6L Height (Feet): 5 Height (Inches): 4.00 Weight (Pounds): 205 General Appearance: no apparent distress Donald Smallwood MD Jan 11, 2019 12:40
--- NOTE | 2019-01-11 14:01 | Cardiac Electrophysiology PN ---
Assessment/Plan Assessment/Plan 1. Non-ST elevation myocardial infarction and troponin peak of 2.7. Levels go up and down and predominantly are flat. Could be due to renal failure. Creatinine is 5 Denies any chest pain [place] [id number] ECG lateral T wave inversion. Stress test today by Dr Foy pending 2. CHF with EF 35%. On Lopressor, Hydralazine and Isordil Ischemia evaluation before DC 3. HTN On CHF meds 4. Renal failure. Creatinine 5 Off Lasix and Aldactone 5. Uncontrolled diabetes with Glucose >400 6. Hyponatremia. 7. SOB. VQ scan nondiagnostic DW RN and Dr Foy Subjective Subjective No CP or SOB. Remained in SR. Stress test today is pending Objective Last 24 Hour Vital Signs Date Time Temp Pulse Resp B/P (MAP) Pulse Ox O2 Delivery O2 Flow Rate FiO2 01/11/19 12:00 97.7 67 20 150/71 (97) 92 01/11/19 09:00 Nasal Cannula 2.0 01/11/19 09:00 89 142/91 01/11/19 09:00 142/91 01/11/19 08:00 98.6 89 22 142/91 (108) 92 01/11/19 08:00 64 01/11/19 04:00 66 01/11/19 04:00 98.1 68 17 116/73 (87) 94 01/11/19 00:00 97.9 64 16 107/60 (76) 95 01/11/19 00:00 67 01/10/19 20:58 74 146/81 01/10/19 20:00 68 01/10/19 20:00 96.6 68 17 146/81 (102) 92 01/10/19 20:00 Nasal Cannula 4.0 01/10/19 16:00 Nasal Cannula 4.0 01/10/19 16:00 68 01/10/19 16:00 97.4 70 20 125/83 (97) 92 Intake and Output 01/10/19 01/11/19 18:59 06:59 Output Total 400 ml Balance -400 ml Output Urine Total 400 ml # Voids 2 4 Laboratory Tests Test 01/11/19 05:15 White Blood Count 5.1 K/UL (4.8-10.8) Red Blood Count 4.37 M/UL (4.20-5.40) Hemoglobin 10.5 G/DL (12.0-16.0) L Hematocrit 34.2 % (37.0-47.0) L Mean Corpuscular Volume 78 FL (80-99) L Mean Corpuscular Hemoglobin 24.1 PG (27.0-31.0) L Mean Corpuscular Hemoglobin Concent 30.8 G/DL (32.0-36.0) L Red Cell Distribution Width 15.4 % (11.6-14.8) H Platelet Count 203 K/UL (150-450) Mean Platelet Volume 7.5 FL (6.5-10.1) Neutrophils (%) (Auto) 57.4 % (45.0-75.0) Lymphocytes (%) (Auto) 20.8 % (20.0-45.0) Monocytes (%) (Auto) 15.4 % (1.0-10.0) H Eosinophils (%) (Auto) 4.4 % (0.0-3.0) H Basophils (%) (Auto) 2.0 % (0.0-2.0) Sodium Level 137 MMOL/L (136-145) Potassium Level 3.4 MMOL/L (3.5-5.1) L Chloride Level 102 MMOL/L (98-107) Carbon Dioxide Level 26 MMOL/L (21-32) Anion Gap 9 mmol/L (5-15) Blood Urea Nitrogen 44 mg/dL (7-18) H Creatinine 3.5 MG/DL (0.55-1.30) H Estimat Glomerular Filtration Rate 15.9 mL/min (>60) Glucose Level 122 MG/DL (74-106) H Uric Acid 13.1 MG/DL (2.6-7.2) H Calcium Level 8.8 MG/DL (8.5-10.1) Phosphorus Level 3.6 MG/DL (2.5-4.9) Magnesium Level 1.9 MG/DL (1.8-2.4) Iron Level 28 ug/dL (50-175) L Total Iron Binding Capacity 202 ug/dL (250-450) L Percent Iron Saturation 14 % (15-50) L Unsaturated Iron Binding 174 ug/dL (112-346) Ferritin 802 NG/ML (8-388) H Total Bilirubin 0.9 MG/DL (0.2-1.0) Aspartate Amino Transf (AST/SGOT) 123 U/L (15-37) H Alanine Aminotransferase (ALT/SGPT) 190 U/L (12-78) H Alkaline Phosphatase 358 U/L (46-116) H Total Protein 6.9 G/DL (6.4-8.2) Albumin 2.7 G/DL (3.4-5.0) L Globulin 4.2 g/dL Albumin/Globulin Ratio 0.6 (1.0-2.7) L Objective HEAD AND NECK: No JVD. LUNGS: Clear. CARDIOVASCULAR: Regular S1 and S2 with no gallop or murmur. ABDOMEN: Soft. EXTREMITIES: No edema Froilan Vallecillo MD Jan 11, 2019 14:01
--- NOTE | 2019-01-11 14:37 | Surgery Progress Note ---
Surgery Progress Note Subjective Additional Comments no acute events. labs noted. persistent abnormal lft's Objective Last 24 Hour Vital Signs Date Time Temp Pulse Resp B/P (MAP) Pulse Ox O2 Delivery O2 Flow Rate FiO2 01/11/19 12:00 97.7 67 20 150/71 (97) 92 01/11/19 09:00 Nasal Cannula 2.0 01/11/19 09:00 89 142/91 01/11/19 09:00 142/91 01/11/19 08:00 98.6 89 22 142/91 (108) 92 01/11/19 08:00 64 01/11/19 04:00 66 01/11/19 04:00 98.1 68 17 116/73 (87) 94 01/11/19 00:00 97.9 64 16 107/60 (76) 95 01/11/19 00:00 67 01/10/19 20:58 74 146/81 01/10/19 20:00 68 01/10/19 20:00 96.6 68 17 146/81 (102) 92 01/10/19 20:00 Nasal Cannula 4.0 01/10/19 16:00 Nasal Cannula 4.0 01/10/19 16:00 68 01/10/19 16:00 97.4 70 20 125/83 (97) 92 I&O Intake and Output 01/10/19 01/11/19 18:59 06:59 Output Total 400 ml Balance -400 ml Output Urine Total 400 ml # Voids 2 4 Dressing: other Wound: other Drains: other Cardiovascular: RSR Respiratory: decreased breath sounds Abdomen: soft, present bowel sounds, non-distended Extremities: no cyanosis Laboratory Tests Test 01/11/19 05:15 White Blood Count 5.1 K/UL (4.8-10.8) Red Blood Count 4.37 M/UL (4.20-5.40) Hemoglobin 10.5 G/DL (12.0-16.0) L Hematocrit 34.2 % (37.0-47.0) L Mean Corpuscular Volume 78 FL (80-99) L Mean Corpuscular Hemoglobin 24.1 PG (27.0-31.0) L Mean Corpuscular Hemoglobin Concent 30.8 G/DL (32.0-36.0) L Red Cell Distribution Width 15.4 % (11.6-14.8) H Platelet Count 203 K/UL (150-450) Mean Platelet Volume 7.5 FL (6.5-10.1) Neutrophils (%) (Auto) 57.4 % (45.0-75.0) Lymphocytes (%) (Auto) 20.8 % (20.0-45.0) Monocytes (%) (Auto) 15.4 % (1.0-10.0) H Eosinophils (%) (Auto) 4.4 % (0.0-3.0) H Basophils (%) (Auto) 2.0 % (0.0-2.0) Sodium Level 137 MMOL/L (136-145) Potassium Level 3.4 MMOL/L (3.5-5.1) L Chloride Level 102 MMOL/L (98-107) Carbon Dioxide Level 26 MMOL/L (21-32) Anion Gap 9 mmol/L (5-15) Blood Urea Nitrogen 44 mg/dL (7-18) H Creatinine 3.5 MG/DL (0.55-1.30) H Estimat Glomerular Filtration Rate 15.9 mL/min (>60) Glucose Level 122 MG/DL (74-106) H Uric Acid 13.1 MG/DL (2.6-7.2) H Calcium Level 8.8 MG/DL (8.5-10.1) Phosphorus Level 3.6 MG/DL (2.5-4.9) Magnesium Level 1.9 MG/DL (1.8-2.4) Iron Level 28 ug/dL (50-175) L Total Iron Binding Capacity 202 ug/dL (250-450) L Percent Iron Saturation 14 % (15-50) L Unsaturated Iron Binding 174 ug/dL (112-346) Ferritin 802 NG/ML (8-388) H Total Bilirubin 0.9 MG/DL (0.2-1.0) Aspartate Amino Transf (AST/SGOT) 123 U/L (15-37) H Alanine Aminotransferase (ALT/SGPT) 190 U/L (12-78) H Alkaline Phosphatase 358 U/L (46-116) H Total Protein 6.9 G/DL (6.4-8.2) Albumin 2.7 G/DL (3.4-5.0) L Globulin 4.2 g/dL Albumin/Globulin Ratio 0.6 (1.0-2.7) L Plan Problems: (1) Leg ulcer Assessment & Plan: Pt presents with #2 ulcers posterior /distal L tibia . Pt stated having wounds since last August and denied previously been seen by a Physician for wounds Pt unable to provide etiology of wounds. Proximal wound 100% necrotic ,malodorous without exudate(L)1.5cm x (W)1.7cm. Second wound inferior but in close proximity Base of wound with necrosis /slough and is malodorous .Small amt brown exudate noted .Periwound without fluctuance, induration or elevation in skin temp. Pt verbalized tenderness when area around wound palpated. Tx Plan: Apply Betadine swabs to both lower extremity ulcerated wounds daily. Cover with Optifoam drsg Daily and prn. (2) Abnormal LFTs Assessment & Plan: persistent abnormal lft's. check [facility] [place] Radames Baeza Jan 11, 2019 14:37
--- NOTE | 2019-01-11 15:07 | NUR ---
NURSE NOTES: patient wishes to leave against medical advice. Spoke with Dr. Archer regarding this. Dr. Archer aware nno.
--- NOTE | 2019-01-11 15:18 | NUR ---
NURSE NOTES: patient refused to do belongings list check up. patient refused to do pictures for her leg RN educated patient regarding risk of against medical advice
--- NOTE | 2019-01-11 15:20 | NUR ---
AMA: SEE AMA FORM.
--- NOTE | 2019-01-11 15:21 | NUR ---
NURSE NOTES: Her daughter came to pick the patient up, escorted the patient out of the hospital with wheelchair with her belonging bags.
--- NOTE | 2019-01-11 17:02 | Diagnostic Imaging Report ---
Indication: Chest pain Technique: A ventilation/perfusion scan was performed. Ventilation was performed utilizing 40 mCi of Technetium 99m-DTPA. Perfusion was performed with 4.5 mCi of technetium 99m-MAA injected intravenously. Multiple side by side projections obtained. Findings: Study is suboptimal as the ventilation portion of the exam was performed 01/07/2019 and the perfusion scan performed 01/08/2019. The perfusion scan demonstrates hypoperfusion to the left upper lobe. The reason for this is not clear but may reflect some degree of right to left shunting. There is also patchy diminished perfusion involving portions of the right upper and both lower lobes. Ventilation appears relatively homogeneous throughout. The chest x-ray from 01/04/2019 relatively clear. Impression: Intermediate probability for pulmonary embolus. Recommend CTA for further evaluation. [facility] has communicated the preliminary results to the Emergency Department. Their findings are largely concordant with this report.
--- NOTE | 2019-01-11 18:18 | Discharge Summary ---
Discharge Summary Hospital Course Date of Admission Jan 04, 2019 at 15:41 Date of Discharge Jan 11, 2019 at 15:20 Admitting Diagnosis HYPERGYLCEMIA/ NSTEMI HPI Yanni King is a 68 year old female who was admitted on Jan 04, 2019 at 15:41 for Hyperglycemia,Non St Elevation- Hospital Course Patient was admitted with uncontrolled DM, ANGIE, NSTEMI due to demand ischemia. Patient was highly noncompliant with recommended treatments - notifed by nurse that patient was signing out against medical advice. Patient left before I was able to talk to her to try to convince her to stay #Uncontrolled DM type 2 without evidence of DKA #Obesity #Medical noncompliance -controlled -continue Levemir 10 units -lispro sliding scale -needs further education about compliance #NSTEMI #Systolic CHF -continue telemetry -cont ASA,Lipitor,metoprolol and Lovenox -TTE showing EF of 35% -cardiology following #ANGIE -improved -avoid hypotension #Paranoia -psychiatry eval appreciated -on Risperidone at bedtime #Pseudohyponatremia -resolved Discharge Discharge Disposition Patient was discharged to Fernando Bonner MD Jan 11, 2019 18:18
--- NOTE | 2019-01-11 23:06 | Pulmonology Progress Note ---
Assessment/Plan Problems: (1) Cardiomegaly (2) Atelectasis (3) Noncompliance (4) Hyperglycemia (5) NSTEMI (non-ST elevated myocardial infarction) (6) ANGIE (acute kidney injury) (7) Delusion Assessment/Plan ASSESSMENT: The patient is a 68-year-old female with history of obesity, possible GHANSHYAM, type 2 diabetes, noncompliant with medical care, presenting with generalized malaise and a [id number] AL with evidence of acute kidney injury. The patient is mildly hypoxemic, likely secondary to a component of decompensated heart failure. I will apply a duplex and D-dimer to rule out venous thromboembolism. PROBLEM LIST: 1. Non ST-elevation AL. 2. Mild hypoxemia. 3. Hyperglycemia. 4. Type 2 diabetes, noncompliant with medical treatment. 5. ANGIE versus CKD. 7. Obesity. 8. Snoring. TREATMENT PLAN: 1. Optimize pulmonary hygiene/mobilize as tolerated. 2. Titrate down FiO2 to keep saturations greater 90%. 3. Refused ABG 4. VQ non-diagnostic 5. Monitor volumes and renal function. 5. F/U renal recs 6. Follow Cardiology recommendations, medical management of non-STEMI, will need ischemia evaluation at some point. 7. Consider discontinue Lovenox and switch to heparin given abnormal renal function. 8. The patient should have outpatient sleep study. 9. F/U psych recs 10. DVT prophylaxis. The patient is on low-molecular weight heparin, SIGNED OUT AMA Subjective Allergies: Coded Allergies: No Known Allergies (Unverified , 01/04/19) Subjective Seen earlier, signed out AMA since AFVSS O2 needs stable Refused PICC Refused FC Refused ABG Refused multiple interventions Feels slightly better No SOB no cough no wheezing no FC Objective Last 24 Hour Vital Signs Date Time Temp Pulse Resp B/P (MAP) Pulse Ox O2 Delivery O2 Flow Rate FiO2 01/11/19 12:00 97.7 67 20 150/71 (97) 92 01/11/19 12:00 64 01/11/19 09:00 Nasal Cannula 2.0 01/11/19 09:00 89 142/91 01/11/19 09:00 142/91 01/11/19 08:00 98.6 89 22 142/91 (108) 92 01/11/19 08:00 64 01/11/19 04:00 66 01/11/19 04:00 98.1 68 17 116/73 (87) 94 01/11/19 00:00 97.9 64 16 107/60 (76) 95 01/11/19 00:00 67 Intake and Output 01/10/19 01/11/19 19:00 07:00 Output Total 400 ml Balance -400 ml Output Urine Total 400 ml # Voids 2 4 General Appearance: no acute distress, other - obese HEENT: normocephalic, atraumatic, anicteric, mucous membranes moist Respiratory/Chest: chest wall non-tender, lungs clear, normal breath sounds, no respiratory distress, no accessory muscle use Cardiovascular: normal peripheral pulses, normal rate, regular rhythm Abdomen: normal bowel sounds, soft, non tender, no organomegaly, non distended Extremities: no cyanosis, no clubbing, no edema Laboratory Tests 01/11/19 05:15: White Blood Count 5.1, Red Blood Count 4.37, Hemoglobin 10.5L, Hematocrit 34.2L , Mean Corpuscular Volume 78L, Mean Corpuscular Hemoglobin 24.1L, Mean Corpuscular Hemoglobin Concent 30.8L, Red Cell Distribution Width 15.4H, Platelet Count 203, Mean Platelet Volume 7.5, Neutrophils (%) (Auto) 57.4, Lymphocytes (%) (Auto) 20.8, Monocytes (%) (Auto) 15.4H, Eosinophils (%) (Auto) 4.4H, Basophils (%) (Auto) 2.0, Sodium Level 137, Potassium Level 3.4L, Chloride Level 102, Carbon Dioxide Level 26, Anion Gap 9, Blood Urea Nitrogen 44H, Creatinine 3.5H, Estimat Glomerular Filtration Rate 15.9, Glucose Level 122H, Uric Acid 13.1H, Calcium Level 8.8, Phosphorus Level 3.6, Magnesium Level 1.9, Iron Level 28L, Total Iron Binding Capacity 202L, Percent Iron Saturation 14L, Unsaturated Iron Binding 174, Ferritin 802H, Total Bilirubin 0.9, Aspartate Amino Transf (AST/SGOT) 123H, Alanine Aminotransferase (ALT/SGPT) 190H , Alkaline Phosphatase 358H, Total Protein 6.9, Albumin 2.7L, Globulin 4.2, Albumin/Globulin Ratio 0.6L Velasquez Wisdom MD Jan 11, 2019 23:06
--- NOTE | 2019-01-12 14:41 | Diagnostic Imaging Report ---
APPROVED REPORT CPT Code: 09284 Present Symptoms Comments: BILATERAL LEGS PAIN. BILATERAL: Imaging reveals a patent deep venous system bilaterally. There is no evidence of thrombus within the femoral, popliteal or tibial segments. The greater saphenous veins are also within normal limits. Doppler indicates normal spontaneous flow within these segments.
== END 2019-01-11 15:20 | disposition left against medical advice (07) | DRG 280 ==
LOC: EDBD 12:38 → EMR 14:18 → EDBEDREQ 14:56 → EDBEDREQSVC 14:56 → EDBEDREQ 14:57 → 2W 15:41 → EDBEDREQ 16:01 → 2E 01-09 23:22
DX: I21.4 Non-ST elevation (NSTEMI) myocardial infarction (principal); I50.23 Acute on chronic systolic (congestive) heart failure; E87.1 Hypo-osmolality and hyponatremia; N17.9 Acute kidney failure, unspecified; J98.11 Atelectasis; L97.829 Non-pressure chronic ulcer of other part of left lower leg with unspecified severity; N13.8 Other obstructive and reflux uropathy; E11.65 Type 2 diabetes mellitus with hyperglycemia; Z79.4 Long term (current) use of insulin; Z91.14 Patient's other noncompliance with medication regimen; I10 Essential (primary) hypertension; I12.9 Hypertensive chronic kidney disease with stage 1 through stage 4 chronic kidney disease, or unspecified chronic kidney disease; N18.9 Chronic kidney disease, unspecified; E66.9 Obesity, unspecified; F22 Delusional disorders; Z59.0 Homelessness; Z79.84 Long term (current) use of oral hypoglycemic drugs; F32.9 Major depressive disorder, single episode, unspecified
CPT/HCPCS: 36415; 71045; 76770; 78579; 78580; 80048; 80053; 80061; 80076; 81003; 82550; 82607; 82728; 82746; 82962; 82977; 83036; 83540; 83550; 83735; 83880; 84100; 84443; 84484; 84550; 85007; 85025; 85379; 85610; 85730; 86140; 86850; 86900; 86901; 93005; 93306; 93970; 96361; 96374; 96375; 99285; A9503; J1815; J2405; S5561